=== PATIENT | female | born 1970 | race Caucasian/White ===

== ENCOUNTER 2017-12-29 10:45 | Inpatient (IN) | payer BC ==
--- NOTE | 2017-12-29 17:37 | ED ---
Abdominal Pain/Female - HPI Summary HPI Summary: This patient is a 47 year old F presenting to [facility] accompanied by her with a chief complaint of weight loss and ABD pain for the last few months. The patient rates the pain 5/10 in severity. Pt states she is dying to eat but gets full easily and therefore does not eat many calories daily. Patient denies n/v/d , dysuria, hematuria, melena, and polyuria. Hx Chronic fatigue and fibromyalgia. She has recently changed her diet which alleviated some ABD pain. - History of Current Complaint Chief Complaint: EDAbdPain Stated Complaint: ABD PAIN Time Seen by Provider: 12/29/17 17:12 Hx Obtained From: Patient Onset/Duration: Still Present Timing: Constant Severity Initially: Moderate Severity Currently: Moderate Pain Intensity: 5 Pain Scale Used: 0-10 Numeric Location: Diffuse Radiates: No Associated Signs and Symptoms: Positive: Negative - n/v/d, dysuria, hematuria, melena, and polyuria. Allergies/Adverse Reactions: Allergies Allergy/AdvReac Type Severity Reaction Status Date / Time Iodinated Contrast- Oral and Allergy Unknown Verified 12/29/17 17:19 IV Dye Reaction Details Home Medications: Home Medications Desloratadine/Pseudoephedrine [Clarinex-D 12 Hour Tablet] 1 tab PO DAILY PRN [History Confirmed 12/29/17] EPINEPHrine [Epipen Jr 2-Biju] 0.15 mg IM ONCE PRN 12/29/17 [History Confirmed ] Fluticasone NASAL SPRAY 50MCG* [Flonase NASAL SPRAY 50MCG*] 1 - 2 spray BOTH NARES DAILY 12/29/17 [History Confirmed 12/29/17] Multivitamin with Iron [Multivitamins with Iron] 1 tab PO DAILY 12/29/17 [ History Confirmed 12/29/17] Polyethylene Glycol 3350* [Miralax*] 17 gm PO BID PRN 12/29/17 [History Confirmed 12/29/17] PMH/Surg Hx/FS Hx/Imm Hx Endocrine/Hematology History: Reports: Other Endocrine/Hematological Disorders - CFS Denies: Hx Diabetes, Hx Thyroid Disease Cardiovascular History: Denies: Hx Hypertension Respiratory History: Denies: Hx Asthma, Hx Chronic Obstructive Pulmonary Disease (COPD) GI History: Denies: Hx Ulcer Musculoskeletal History: Reports: Hx Fibromyalgia Infectious Disease History: No Infectious Disease History: Denies: Hx Clostridium Difficile, Hx Hepatitis, Hx Human Immunodeficiency Virus (HIV), Hx of Known/Suspected MRSA, Hx Shingles, Hx Tuberculosis, Hx Known/ Suspected VRE, Hx Known/Suspected VRSA, History Other Infectious Disease, Traveled Outside the [place] in Last 30 Days - Family History Known Family History: Negative: Hypertension, Respiratory Disease, Seizure Disorder - Social History Alcohol Use: Rare Substance Use Type: Reports: None Smoking Status (MU): Never Smoked Tobacco Review of Systems Positive: Other - weight loss . Negative: Fever, Chills Negative: Erythema Negative: Sore Throat Negative: Chest Pain Negative: Shortness Of Breath, Cough Positive: Abdominal Pain. Negative: Vomiting, Diarrhea, Nausea Negative: dysuria, hematuria Negative: Myalgia, Edema Negative: Rash Neurological: Negative - dizziness All Other Systems Reviewed And Are Negative: Yes Physical Exam - Summary Physical Exam Summary: Constitutional: cachectic appearing, Alert. (-) Distressed Skin: Warm, Dry HENT: Normocephalic; Atraumatic Eyes: Conjunctiva normal Neck: Musculoskeletal ROM normal neck. (-) JVD, (-) Stridor, (-) Tracheal deviation Cardio: Rhythm regular, rate normal, Heart sounds normal; Intact distal pulses; The pedal pulses are 2+ and symmetric. Radial pulses are 2+ and symmetric. (-) Murmur Pulmonary/Chest wall: Effort normal. (-) Respiratory distress, (-) Wheezes, (-) Rales Abd: Soft, (-) epigastric tenderness, (-) Distension, (-) Guarding, (-) Rebound Musculoskeletal: (-) Edema Lymph: (-) Cervical adenopathy Neuro: Alert, Oriented x3 Psych: appears somewhat anxious Triage Information Reviewed: Yes Vital Signs On Initial Exam: Initial Vitals Temp Pulse Resp BP Pulse Ox 99.5 F 110 18 106/82 100 12/29/17 16:56 12/29/17 16:56 12/29/17 16:56 12/29/17 16:56 12/29/17 16:56 Vital Signs Reviewed: Yes Diagnostics - Vital Signs Vital Signs Temp Pulse Resp BP Pulse Ox 12/29/17 17:17 99 F 86 16 157/78 96 12/29/17 17:16 157/78 12/29/17 16:56 99.5 F 110 18 106/82 100 - Laboratory Result Diagrams: 12/29/17 17:38 12/29/17 17:38 Lab Statement: Any lab studies that have been ordered have been reviewed, and results considered in the medical decision making process. - CT CT ABD/Pelvis CT Interpretation Completed By: Radiologist - FIBROID UTERUS. 2. 3.2 CM INTERMEDIATE ATTENUATION ROUNDED LESION OF THE RIGHT OVARY, POSSIBLY A COMPLEX OVARIAN CYST, THOUGH SOLID LESIONS WITHIN THE DIFFERENTIAL. CONSIDER FURTHER EVALUATION WITH DEDICATED IMAGING OF THE PELVIS INCLUDING ULTRASOUND OF THE PELVIS. 3. OTHERWISE UNREMARKABLE NONCONTRAST CT OF THE ABDOMEN AND PELVIS.. ED physician has reviewed this radiology report. Abdominal Pain Fem Course/Dx - Course Course Of Treatment: This patient is a 47 year old F presenting to [facility] accompanied by her with a chief complaint of weight loss and ABD pain for the last few months. The patient rates the pain 5/10 in severity. Pt states she is dying to eat but gets full easily and therefore does not eat many calories daily. Patient denies n/v/d, dysuria, hematuria, melena, and polyuria. Hx Chronic fatigue and fibromyalgia. She has recently changed her diet which alleviated some ABD pain. CXR reveals, per radiologist, 1. FIBROID UTERUS. 2. 3.2 CM INTERMEDIATE ATTENUATION ROUNDED LESION OF THE RIGHT OVARY, POSSIBLY A COMPLEX. OVARIAN CYST, THOUGH SOLID LESIONS WITHIN THE DIFFERENTIAL. CONSIDER FURTHER EVALUATION. WITH DEDICATED IMAGING OF THE PELVIS INCLUDING ULTRASOUND OF THE PELVIS. 3. OTHERWISE UNREMARKABLE NONCONTRAST CT OF THE ABDOMEN AND PELVIS.. Did refuse oral contrast with the understanding that it could limit her examination. This patient will be signed out to Dr. Salas on shift change awaiting imaging and dispo - Diagnoses Provider Diagnoses: Severe protein-calorie malnutrition, Eating disorder, unspecified Discharge - Sign-Out/Discharge Documenting (check all that apply): Sign-Out Patient Signing out patient TO: Rafy Salas - Discharge Plan Condition: Good Disposition: ADMITTED TO [facility] - Billing Disposition and Condition Condition: GOOD Disposition: Admitted to [facility] - Attestation Statements Document Initiated by Scribe: Yes Documenting Scribe: Robbi Mayes Provider For Whom Scribe is Documenting (Include Credential): Nitin Cunningham MD Scribe Attestation: Robbi Ford , scribed for Nitin Cunningham MD on 01/05/18 at 1027. Scribe Documentation Reviewed: Yes Provider Attestation: The documentation as recorded by the scribe, Robbi Mayes accurately reflects the service I personally performed and the decisions made by me, Nitin Cunningham MD
[2017-12-29 17:48] LABS: ABS Basophils 0 10^3/ul (0-0.2); ABS Eosinophils 0 10^3/ul (0-0.6); ABS Lymphocytes 1.2 10^3/ul (1.0-4.8); ABS Monocytes 0.5 10^3/ul (0-0.8); ABS Neutrophils 4.6 10^3/ul (1.5-7.7); ABS Nucleated RBC 0 10^3/ul; Eosinophil % 0.7 % (0-6); Hematocrit 43 % (35-47); Hemoglobin 14.8 g/dl (12.0-16.0); Mean Corpuscular HGB Conc 35 g/dl (31-36); Mean Corpuscular Hemoglobin 31 pg (27-31); Mean Corpuscular Volume 91 fL (80-97); Mean Platelet Volume 8.4 um3 (7.4-10.4); Nucleated Red Blood Cells % 0.1; Platelet Count 295 10^3/ul (150-450); Red Blood Count 4.71 10^6/ul (4.00-5.40); Red Cell Distribution Width 12 % (10.5-15); White Blood Count 6.3 10^3/ul (3.5-10.8)
--- NOTE | 2017-12-29 18:09 | RAD ---
CLINICAL HISTORY: WEIGHT LOSS ABD PAIN COMPARISON: None TECHNIQUE: Multiple contiguous axial CT scans were obtained of the abdomen and pelvis, without intravenous contrast enhancement. Coronal and sagittal multiplanar reformations are submitted for review. Oral contrast was not administered. FINDINGS: Evaluation is limited due to the lack of intravenous contrast. This limits evaluation of the solid organs and vasculature. LUNG BASES: The lung bases are clear. LIVER: The liver is normal in shape, size, contour, and attenuation. BILE DUCTS: There is no intrahepatic or extrahepatic biliary dilatation. GALLBLADDER: The gallbladder is normal, without pericholecystic inflammatory change. PANCREAS: The pancreas is normal, without mass or ductal dilatation. SPLEEN: Normal in size and appearance. UPPER GI TRACT: Evaluation of the gastrointestinal tract is limited by incomplete gastric distention. There are degenerative tract is unremarkable. SMALL BOWEL AND MESENTERY: The small bowel is normal in contour, course, and caliber. There is no obstruction or dilatation. COLON: The colon is normal in contour, course, caliber. There is no pericolonic inflammatory change. ADRENALS: Normal bilaterally. KIDNEYS: The kidneys are normal in shape, size, contour, and axis. There is no hydronephrosis or nephrolithiasis. BLADDER: The bladder is smooth in contour. PELVIC ORGANS: The uterus is lobulated. There is a small amount of free fluid within the pelvis. There is an intermediate attenuation rounded lesion of the right ovary measuring 3.2 cm. AORTA: The aorta is normal. IVC: Unremarkable LYMPH NODES: There is no lymphadenopathy by size criteria. ABDOMINAL WALL: There is no evidence for abdominal wall hernia. BONES AND SOFT TISSUES: There are mild diffuse degenerative changes. OTHER: None IMPRESSION: 1. FIBROID UTERUS. 2. 3.2 CM INTERMEDIATE ATTENUATION ROUNDED LESION OF THE RIGHT OVARY, POSSIBLY A COMPLEX OVARIAN CYST, THOUGH SOLID LESIONS WITHIN THE DIFFERENTIAL. CONSIDER FURTHER EVALUATION WITH DEDICATED IMAGING OF THE PELVIS INCLUDING ULTRASOUND OF THE PELVIS. 3. OTHERWISE UNREMARKABLE NONCONTRAST CT OF THE ABDOMEN AND PELVIS..
[2017-12-29 18:24] LABS: EGFR Non-African American 109.3 (>60)
--- NOTE | 2017-12-29 19:10 | RAD ---
EXAM: US Abdomen Limited, Right Upper Quadrant CLINICAL HISTORY: 47 years old, female; Pain; Abdominal pain; Flank; Right upper quadrant (ruq); Additional info: Abd pain TECHNIQUE: Real-time ultrasound of the right upper quadrant with image documentation. COMPARISON: A/P WO CT ABD/PEL W/O 12/29/2017 5:54 PM FINDINGS: Liver: Unremarkable. No mass. No intrahepatic bile duct dilation. Gallbladder: The gallbladder is well filled without stones. Several polyps are seen, the largest measuring about 3 mm. Common bile duct: 4.7 mm in diameter. No stones. No dilation. Pancreas: Unremarkable as visualized. Right kidney: Unremarkable. No stones. No solid mass. No hydronephrosis. IMPRESSION: No no evidence of gallstones or other acute process.
--- NOTE | 2017-12-29 19:17 | ED ---
Progress - Progress Note Progress Note: This pt was signed out from Dr. Cunningham at shift change, pending disposition, awaiting US gallbladder. US Gallbladder, as read by radiologist IMPRESSION: No evidence of gallstones or other acute process. US Pelvis, as read by radiologist IMPRESSION: 1. Normal sized uterus with at least 3 measurable small fibroids none of which are submucosal. 2. There is a cyst in the right ovary measuring 3 cm probably a follicular cyst. Dr. Salas has reviewed these reports. Course/Dx - Provider Notifications Discussed Care Of Patient With: Alexandra Uriostegui - hospitalist Time Discussed With Above Provider: 19:15 Instructed by Provider To: Admit As Inpatient Discharge - Sign-Out/Discharge Documenting (check all that apply): Receiving Sign-Out Receiving patient FROM: Nitin Cunningham - Discharge Plan Referrals: Johnny King MD [Medical Doctor] - - Attestation Statements Document Initiated by Scribe: Yes Documenting Scribe: Tabatha Montiel Provider For Whom Scribe is Documenting (Include Credential): Rafy Salas MD Scribe Attestation: ITabatha, scribed for Rafy Salas MD on 12/29/17 at 2151.
--- NOTE | 2017-12-29 20:31 | RAD ---
EXAM: US Pelvis Complete, Transabdominal CLINICAL HISTORY: 47 years old, female; Abnormal findings; Abnormal imaging test; Additional info: Ovarian mass on CT, ? cystic vs neoplasm TECHNIQUE: Real-time transabdominal pelvic ultrasound (complete) with image documentation. COMPARISON: A/P WO CT ABD/PEL W/O 12/29/2017 5:54 PM FINDINGS: Uterus/cervix: The uterus measures 6.3 x 4.5 x 6.3 cm. Endometrial thickness is 4 mm. There are at least 3 small fibroids one, subserosal in the fundus measuring 3 x 2.8 x 2.2 cm. There is an intramural fibroid anteriorly measuring 2 x 2.3 cm and the smaller one posteriorly measuring 1 x 1.6 cm. None of them are submucosal. Right ovary: The right ovary measures 4.4 x 2.9 x 3.1 cm and contains a cyst measuring 2.8 x 3.1 cm. There is some debris within the cyst. Normal blood flow. Left ovary: The left ovary measures 2 x 1.4 x 1.9 cm. Normal blood flow. Free fluid: No free fluid. Bladder: Unremarkable as visualized. IMPRESSION: 1. Normal sized uterus with at least 3 measurable small fibroids none of which are submucosal. 2. There is a cyst in the right ovary measuring 3 cm probably a follicular cyst.
[2017-12-29] MEDS ORDERED: Ondansetron INJ* 2 MG/ML VIAL IV PRN (21:55)
[2017-12-29] MEDS ORDERED: Acetaminophen TAB* 325 MG PO PRN (22:02)
[2017-12-29 23:30] LABS: Urine Appearance Clear; Urine Blood Negative (Negative); Urine Color Straw; Urine Ketones Negative (Negative); Urine Protein Negative (Negative); Urine Red Blood Cell Trace(0-2/hpf) (Absent); Urine Specific Gravity 1.003 (1.010-1.030); Urine Urobilinogen Negative (Negative); Urine White Blood Cell Trace(0-5/hpf) (Absent)
[2017-12-30] MEDS: NS 0.9% 1000 ML* 1,000 ML IV SCH ×2 (00:16→12:51)
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
[2017-12-30] MEDS ORDERED: Midazolam* 1 MG/ML 10 ML VIAL (10 MG) ONE (14:45)
[2017-12-30] MEDS ORDERED: fentaNYL* 50 MCG/ML 2 ML VIAL (100 MCG VIAL) ONE (14:45)
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
--- NOTE | 2017-12-30 20:17 | PN ---
Subjective Date of Service: 12/30/17 Interval History: Interviewed and examined patient at bedside; Discussed case with Dr. Uriostegui; Reviewed previous notes and radiology results; patient with atpyical, intermittent abdominal distress associated with different foods. high likelihood of eating disorder; discussed with patient. plan for EGD today to exclude upper GI condition (i.e. ulcer disease, hernia, etc). patient agreeable. Family History: Unchanged from Admission Social History: Unchanged from Admission Past Medical History: Unchanged from Admission Objective Active Medications: . Acetaminophen (Tylenol Tab*) 325 mg PO Q6H PRN PRN Reason: PAIN OR TEMPERATURE Sodium Chloride (Ns 0.9% 1000 Ml*) 1,000 mls @ 75 mls/hr IV PER RATE IBETH Last Admin: 12/30/17 12:51 Dose: 75 mls/hr Ondansetron HCl (Zofran Inj*) 4 mg IV Q6H PRN PRN Reason: NAUSEA Polyethylene Glycol/Electrolytes (Miralax*) 17 gm PO BID PRN PRN Reason: CONSTIPATION Vital Signs - 8 hr 12/30/17 12/30/17 18:01 18:49 Temperature 98.1 F 97.8 F Pulse Rate 75 84 Respiratory 18 16 Rate Blood Pressure 123/66 104/63 (mmHg) O2 Sat by Pulse 100 100 Oximetry Oxygen Devices in Use Now: None Appearance: NAD; very malnourished and cachectic. Eyes: No Scleral Icterus Ears/Nose/Mouth/Throat: Clear Oropharnyx Neck: Trachea Midline Respiratory: Symmetrical Chest Expansion and Respiratory Effort Cardiovascular: NL Sounds; No Murmurs; No JVD Abdominal: NL Sounds; No Tenderness; No Distention, - - scaphoid Lymphatic: No Cervical Adenopathy Extremities: No Edema, - - extremely thin and poor muscle bulk Skin: No Rash or Ulcers Neurological: Alert and Oriented x 3 Lines/Tubes/Other Access: Clean, Dry and Intact Peripheral IV Nutrition: Taking PO's - Nutrition: Malnutrition Diagnosis/Plan Malnutrition Assessment by Registered Dietitian: Malnutrition Assessment Clinical Characteristics Chronic,Severe Malnutrition Assessment: <or=50% of EEE x >or= 5 days Criteria severe wt loss: 12% x 4 mos (> 7.5% x 3 mos) Malnutrition Assessment: TBA based on results of GI consult and diet Interventions advancement see Nutrition Assessment under Patient Care tab for details Malnutrition Assessment: Goals 1. Pt will tolerate PO without GI distress/pain 2. Food options will be d/w pt to optimize intake 3. Intake will be adequate in protein and kcal to support wt gain and replenishing of protein stores 2/2 severe wt loss Result Diagrams: 12/29/17 17:38 12/29/17 17:38 Assess/Plan/Problems-Billing . Assessment: 47 yo female with severe protein calorie malnutrition and likely eating disorder characterized by somatiform discomfort intermittently that has caused a hesitation to eat all but a few foods. s/p EGD without explanatory findings. Restarting diet with bland contents but need to add protein calories. May need enteral nutrition via alternative delivery system in short run given extreme weakness. Admit to inpatient status 12/30/17. . - Patient Problems (1) Severe protein-calorie malnutrition Current Visit: Yes Status: Acute Priority: High Code(s): E43 - UNSPECIFIED SEVERE PROTEIN-CALORIE MALNUTRITION Comment: Clinical Characteristics Chronic,Severe Malnutrition Assessment: patient has taken in less than 50% of EEE for more than 5 days Criteria severe wt loss: 12% x 4 mos (> 7.5% x 3 mos) Malnutrition Assessment: TBA based on results of GI consult and diet (2) Abdominal distress Current Visit: Yes Status: Acute Priority: High Code(s): R10.9 - UNSPECIFIED ABDOMINAL PAIN Comment: - no pain now - fearful to eat - s/p EGD with bx --> no explanatory abnormalities seen. (3) Eating disorder, unspecified Current Visit: Yes Status: Acute Priority: High Code(s): F50.9 - EATING DISORDER, UNSPECIFIED Comment: - consider psych consult - attempt refeeding; can use TEN if needed; patient is agreeable to TEN via NGT if needed.
[2017-12-31] MEDS: NS 0.9% 1000 ML* 1,000 ML IV SCH (06:28)
--- NOTE | 2017-12-31 10:22 | PRO ---
PROCEDURE NOTE: DATE OF PROCEDURE: 12/30/17 PROCEDURE PERFORMED: EGD with biopsy. INDICATION: Weight loss of 15 pounds, early satiety, abdominal discomfort and bloating. MEDICATIONS GIVEN: 1. Versed 9 mg IV. 2. Fentanyl 75 mcg IV. DESCRIPTION OF PROCEDURE: Full disclosure of risks were reviewed with the patient as detailed on the consent form. The patient was placed in the left lateral decubitus position and monitored with continuous pulse oximetry, interval blood pressure monitoring, and direct observation. A bite-block was placed between the teeth. An Olympus gastroscope was then inserted into the patient's mouth, advanced down the esophagus, into the stomach, and into the distal duodenum. Esophagus was notable for circumferential erythema of the distal 5 cm without overt inflammation or ulceration.Bopsies were obtained from this area. The Z-line was regular.and GE junction was noted at 37 cm. A 3 to 4 cm hiatal hernia was appreciated. Next, the gastric mucosa was examined closely in forward and retroflexed views. There was relatively pale featureless mucosa particularly in the antrum. No erythema, erosions, ulcerations or masses noted. Biopsies were obtained from the gastric antrum and the gastric body. The scope was then advanced into the duodenum. The duodenum had mild scattered linear erythema, which was biopsied. No erosions or ulcers. The scope was then slowly withdrawn from the patient. She tolerated the procedure well and was returned to the recovery room in stable condition. IMPRESSION: 1. Distal esophageal erythema. Not classic for esophagitis. Biopsies taken. 2. Hiatal hernia. 3. Relatively pale featureless mucosa in antrum. May be within normal limits. Biopsies taken. 3. Scattered linear erythema in duodenum. Biopsies obtained. RECOMMENDATIONS: 1. Await pathology. 2. Consider gastric emptying study. Thank you, Dr. Morrison, for this consult. [id number]/[facility] #: [id number] [facility] HOSPITALJonathan
--- NOTE | 2017-12-31 17:27 | PN ---
Subjective Date of Service: 12/31/17 Interval History: Patient reports that "stomach" is not tolerating food. She has been able to tolerate bananas, rice cakes, applesauce today w/o vomiting or pain. She reports intolerance of gluten, processed sugar, soy, and most foods. She saw Dr. Linda yesterday from GI, had EGD. Apparenty IBS, Xifaxan discussed. Patient asking more about this. Family History: Unchanged from Admission Social History: Unchanged from Admission Past Medical History: Unchanged from Admission Objective Active Medications: Acetaminophen (Tylenol Tab*) 325 mg PO Q6H PRN PRN Reason: PAIN OR TEMPERATURE Sodium Chloride (Ns 0.9% 1000 Ml*) 1,000 mls @ 75 mls/hr IV PER RATE IBETH Last Admin: 12/31/17 06:28 Dose: 75 mls/hr Ondansetron HCl (Zofran Inj*) 4 mg IV Q6H PRN PRN Reason: NAUSEA Polyethylene Glycol/Electrolytes (Miralax*) 17 gm PO BID PRN PRN Reason: CONSTIPATION Vital Signs - 8 hr 12/31/17 12/31/17 12/31/17 09:43 11:26 15:47 Temperature 36.7 C 37.1 C Pulse Rate 71 77 Respiratory 14 16 18 Rate Blood Pressure 112/70 115/75 (mmHg) O2 Sat by Pulse 100 99 Oximetry Oxygen Devices in Use Now: None Appearance: appears cachectic Eyes: No Scleral Icterus Ears/Nose/Mouth/Throat: Clear Oropharnyx Neck: No Thyroid Enlargement, Masses Respiratory: Clear to Auscultation, Clear to Percussion Cardiovascular: NL Sounds; No Murmurs; No JVD Abdominal: NL Sounds; No Tenderness; No Distention, No Hepatosplenomegaly Skin: No Rash or Ulcers Neurological: Alert and Oriented x 3 Lines/Tubes/Other Access: Clean, Dry and Intact Peripheral IV Nutrition: Taking PO's - Nutrition: Malnutrition Diagnosis/Plan Malnutrition Assessment by Registered Dietitian: Malnutrition Assessment Clinical Characteristics Chronic,Severe Malnutrition Assessment: <or=50% of EEE x >or= 5 days Criteria severe wt loss: 12% x 4 mos (> 7.5% x 3 mos) Malnutrition Assessment: TBA based on results of GI consult and diet Interventions advancement see Nutrition Assessment under Patient Care tab for details Malnutrition Assessment: Goals 1. Pt will tolerate PO without GI distress/pain 2. Food options will be d/w pt to optimize intake 3. Intake will be adequate in protein and kcal to support wt gain and replenishing of protein stores 2/2 severe wt loss Result Diagrams: 12/29/17 17:38 12/29/17 17:38 Microbiology and Other Data: Microbiology 12/29/17 23:14 Urine Culture - Final Urine No Growth (<1,000 CFU/mL) Assess/Plan/Problems-Billing Assessment: 47 yo female with severe protein calorie malnutrition and likely eating disorder characterized by somatiform discomfort intermittently that has caused a hesitation to eat all but a few foods. - Patient Problems (1) Severe protein-calorie malnutrition Current Visit: Yes Status: Acute Priority: High Code(s): E43 - UNSPECIFIED SEVERE PROTEIN-CALORIE MALNUTRITION SNOMED Code(s): 790107175 Comment: -Discussed w/ range master, will start calorie counts -Discussed option of NT tube, enteral feedings. Patient feels that protein shake was the cause of gastritis recently (2) Eating disorder, unspecified Current Visit: Yes Status: Acute Priority: High Code(s): F50.9 - EATING DISORDER, UNSPECIFIED SNOMED Code(s): 97184875 Comment: - arranging psych consult - attempt refeeding; patient is not agreeable to TEN via NGT if needed. (3) Abdominal distress Current Visit: Yes Status: Acute Priority: High Code(s): R10.9 - UNSPECIFIED ABDOMINAL PAIN SNOMED Code(s): 139062454 Comment: - s/p EGD with bx --> no explanatory abnormalities seen. - pathology pending - discussed w/ Dr. Gage, he will see patient Tuesday - Discussed Xifaxan for IBS or bacterial overgrowth Status and Disposition: requires continue inpatient stay due to severe malnutrition, BMI 14.6
[2018-01-01] MEDS: Polyethylene Glycol 3350* 17 GM PACKET PO PRN (04:41)
--- NOTE | 2018-01-01 11:09 | PN ---
Subjective Date of Service: 01/01/18 Interval History: Ms. Mix reports the continued sensation of early satiety but feels that she has been able to eat a bit more since admission. She denies any new complaint. She is upset at the suggestion that she may have an eating disorder. Family History: Unchanged from Admission Social History: Unchanged from Admission Past Medical History: Unchanged from Admission Objective Active Medications: Acetaminophen (Tylenol Tab*) 325 mg PO Q6H PRN Ondansetron HCl (Zofran Inj*) 4 mg IV Q6H PRN Polyethylene Glycol/Electrolytes (Miralax*) 17 gm PO BID PRN Vital Signs: Temp Pulse Resp BP Pulse Ox 97.9 F 88 16 108/80 100 01/01/18 07:23 01/01/18 07:23 01/01/18 07:33 01/01/18 07:23 01/01/18 07:23 Oxygen Devices in Use Now: None - Nutrition: Malnutrition Diagnosis/Plan Malnutrition Assessment by Registered Dietitian: Malnutrition Assessment Clinical Characteristics Chronic,Severe Malnutrition Assessment: <or=50% of EEE x >or= 5 days Criteria severe wt loss: 12% x 4 mos (> 7.5% x 3 mos) Malnutrition Assessment: TBA based on results of GI consult and diet Interventions advancement see Nutrition Assessment under Patient Care tab for details Malnutrition Assessment: Goals 1. Pt will tolerate PO without GI distress/pain 2. Food options will be d/w pt to optimize intake 3. Intake will be adequate in protein and kcal to support wt gain and replenishing of protein stores 2/2 severe wt loss Result Diagrams: 12/29/17 17:38 12/29/17 17:38 Microbiology and Other Data: Microbiology 12/29/17 23:14 Urine Culture - Final Urine No Growth (<1,000 CFU/mL) Assess/Plan/Problems-Billing Assessment: Ms. Mix is a 47 yo female with severe protein calorie malnutrition and likely eating disorder characterized by somatiform discomfort intermittently that has caused a hesitation to eat all but a few foods. - Patient Problems (1) Abdominal distress Comment: - s/p EGD with bx --> no explanatory abnormalities seen. - pathology pending - discussed w/ Dr. Gage, he will see patient Tuesday - ? of gut dysbiosis or post-infectious irritable bowel syndrome. - Gastric empyting study ordered (2) Eating disorder, unspecified Comment: - Psych consult pending. - Continue to offer foods; patient is not agreeable to TEN via NGT if needed. (3) Severe protein-calorie malnutrition Comment: -Discussed w/ head field hockey coach, will start calorie counts (4) DVT prophylaxis Comment: - Early mobility (5) Full code status Comment: Status and Disposition: Requires continue inpatient stay due to severe malnutrition, BMI 14.6
[2018-01-01] MEDS: Lactobacillus Acidophilus* 1 TAB PO SCH (12:41)
[2018-01-02] MEDS: Lactobacillus Acidophilus* 1 TAB PO SCH ×2 (07:47→17:11)
--- NOTE | 2018-01-02 08:16 | PN ---
Subjective Date of Service: 01/02/18 Interval History: Ms. Mix continues to report the same symptoms of early satiety. She denies other complaint today. Family History: Unchanged from Admission Social History: Unchanged from Admission Past Medical History: Unchanged from Admission Objective Active Medications: Acetaminophen (Tylenol Tab*) 325 mg PO Q6H PRN Lactobacillus Rhamnosus (Lactobacillus Acidophilus*) 1 tab PO DAILY IBETH Ondansetron HCl (Zofran Inj*) 4 mg IV Q6H PRN Polyethylene Glycol/Electrolytes (Miralax*) 17 gm PO BID PRN Vital Signs: Temp Pulse Resp BP Pulse Ox 97.9 F 104 18 110/72 98 01/02/18 06:49 01/02/18 06:49 01/02/18 06:49 01/02/18 06:49 01/02/18 06:49 Oxygen Devices in Use Now: None Appearance: Female lying in bed in NAD Eyes: No Scleral Icterus Ears/Nose/Mouth/Throat: NL Teeth, Lips, Gums Neck: NL Appearance and Movements; NL JVP Respiratory: Symmetrical Chest Expansion and Respiratory Effort, Clear to Auscultation Cardiovascular: NL Sounds; No Murmurs; No JVD, No Edema Abdominal: NL Sounds; No Tenderness; No Distention Extremities: No Edema Skin: No Rash or Ulcers Neurological: Alert and Oriented x 3, NL Muscle Strength and Tone Nutrition: Taking PO's - Nutrition: Malnutrition Diagnosis/Plan Malnutrition Assessment by Registered Dietitian: Malnutrition Assessment Clinical Characteristics Chronic,Severe Malnutrition Assessment: <or=50% of EEE x >or= 5 days Criteria severe wt loss: 12% x 4 mos (> 7.5% x 3 mos) Malnutrition Assessment: TBA based on results of GI consult and diet Interventions advancement see Nutrition Assessment under Patient Care tab for details Malnutrition Assessment: Goals 1. Pt will tolerate PO without GI distress/pain 2. Food options will be d/w pt to optimize intake 3. Intake will be adequate in protein and kcal to support wt gain and replenishing of protein stores 2/2 severe wt loss Result Diagrams: 12/29/17 17:38 12/29/17 17:38 Microbiology and Other Data: . Assess/Plan/Problems-Billing Assessment: Ms. Mix is a 47 yo female with severe protein calorie malnutrition and likely eating disorder characterized by somatiform discomfort intermittently that has caused a hesitation to eat all but a few foods. - Patient Problems (1) Abdominal distress Comment: - s/p EGD with bx --> no explanatory abnormalities seen, pathology pending - Gastric emptying study shows gastroparesis but Dr. Gage states that it is mild and that the degree of slowing does not correlated with her symptoms and degree of food aversion. - ? of gut dysbiosis, recommend SIBO testing outpatient (2) Eating disorder, unspecified Comment: - Psych consult pending. - Suspect patient's malnutrition is multifactorial and that she has a component of an eating disorder. (3) Severe protein-calorie malnutrition Comment: -Discussed w/ lining machine operator, will start calorie counts (4) DVT prophylaxis Comment: - Early mobility (5) Full code status Comment: Status and Disposition: Requires continue inpatient stay due to severe malnutrition, BMI 14.6
--- NOTE | 2018-01-02 14:30 | RAD ---
Indication: Abdominal pain, nausea, early satiety several months duration. Weight loss. Comparison: December 29, [address] Technique: The patient was administered a solid meal of oatmeal admixed with 0.950 mCi of Tc-99m sulfur colloid. Images of the upper abdomen were obtained and percent of contents emptied from the stomach calculated. Report: Gastric emptying half time is equal to 186 minutes. Normal GE T-1/2 is less than 90 minutes. IMPRESSION: Gastroparesis.
[2018-01-02] MEDS ORDERED: Metoclopramide TAB* 10 MG PO PRN (14:59)
[2018-01-02] MEDS: Polyethylene Glycol 3350* 17 GM PACKET PO PRN (22:59)
[2018-01-03] MEDS: Lactobacillus Acidophilus* 1 TAB PO SCH (08:46)
[2018-01-03] MEDS: Polyethylene Glycol 3350* 17 GM PACKET PO PRN (16:59)
--- NOTE | 2018-01-03 17:19 | PN ---
Subjective Date of Service: 01/03/18 Interval History: C/o right lower abd pain after eating eggs, denies chest pain or shortness of breath. Denies vomiting or diarrhea Family History: Unchanged from Admission Social History: Unchanged from Admission Past Medical History: Unchanged from Admission Objective Active Medications: Acetaminophen (Tylenol Tab*) 325 mg PO Q6H PRN PRN Reason: PAIN OR TEMPERATURE Lactobacillus Rhamnosus (Lactobacillus Acidophilus*) 1 tab PO DAILY IBETH Last Admin: 01/03/18 08:46 Dose: 1 tab Metoclopramide HCl (Reglan Tab*) 5 mg PO Q6H PRN PRN Reason: nausea, abdominal pain Ondansetron HCl (Zofran Inj*) 4 mg IV Q6H PRN PRN Reason: NAUSEA Polyethylene Glycol/Electrolytes (Miralax*) 17 gm PO BID PRN PRN Reason: CONSTIPATION Last Admin: 01/03/18 16:59 Dose: 17 gm Vital Signs - 8 hr 01/03/18 01/03/18 11:27 15:43 Temperature 98.3 F 98.2 F Pulse Rate 90 91 Respiratory 16 17 Rate Blood Pressure 105/75 102/70 (mmHg) O2 Sat by Pulse 100 100 Oximetry Oxygen Devices in Use Now: None Appearance: alert, appears comfortable resting in bed, no acute distress Eyes: No Scleral Icterus Ears/Nose/Mouth/Throat: Clear Oropharnyx, Mucous Membranes Moist Neck: NL Appearance and Movements; NL JVP, Trachea Midline Respiratory: Symmetrical Chest Expansion and Respiratory Effort, Clear to Auscultation Cardiovascular: NL Sounds; No Murmurs; No JVD, No Edema Abdominal: NL Sounds; No Tenderness; No Distention Extremities: No Edema, No Clubbing, Cyanosis Skin: No Rash or Ulcers Neurological: Alert and Oriented x 3 Nutrition: Taking PO's - Nutrition: Malnutrition Diagnosis/Plan Malnutrition Assessment by Registered Dietitian: Malnutrition Assessment Clinical Characteristics Chronic,Severe Malnutrition Assessment: <or=50% of EEE x >or= 5 days Criteria severe wt loss: 12% x 4 mos (> 7.5% x 3 mos) Malnutrition Assessment: TBA based on results of GI consult and diet Interventions advancement see Nutrition Assessment under Patient Care tab for details Malnutrition Assessment: Goals 1. Pt will tolerate PO without GI distress/pain 2. Food options will be d/w pt to optimize intake 3. Intake will be adequate in protein and kcal to support wt gain and replenishing of protein stores 2/2 severe wt loss Result Diagrams: 12/29/17 17:38 12/29/17 17:38 Microbiology and Other Data: . Assess/Plan/Problems-Billing Assessment: Ms. Mix is a 47 yo female with severe protein calorie malnutrition and likely eating disorder characterized by somatiform discomfort intermittently that has caused a hesitation to eat all but a few foods. - Patient Problems (1) Gastroparesis Current Visit: Yes Status: Acute Code(s): K31.84 - GASTROPARESIS SNOMED Code(s): 351727676 Comment: s/p EGD with bx- no explanatory abnormalities seen, pathology - negative - Gastric emptying study shows gastroparesis - GI does not feel this is mild and not the only contributing factor to her symptoms and severity of poor nutritional intake (2) Eating disorder, unspecified Current Visit: Yes Status: Acute Priority: High Code(s): F50.9 - EATING DISORDER, UNSPECIFIED SNOMED Code(s): 47217380 Comment: - Psych consult - seen today - Suspect patient's malnutrition is multifactorial and that she has a component of an eating disorder. (3) Severe protein-calorie malnutrition Current Visit: Yes Status: Acute Priority: High Code(s): E43 - UNSPECIFIED SEVERE PROTEIN-CALORIE MALNUTRITION SNOMED Code(s): 581510059 Comment: -Discussed w/ collection development librarian, will start calorie counts (4) DVT prophylaxis Current Visit: Yes Status: Acute Code(s): WAU2162 - SNOMED Code(s): 609409028 Comment: - Early mobility (5) Full code status Current Visit: Yes Status: Acute Code(s): Z78.9 - OTHER SPECIFIED HEALTH STATUS SNOMED Code(s): 645888346 Comment: Status and Disposition: inpatient - possible discharge in the AM
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
[2018-01-04] MEDS: Lactobacillus Acidophilus* 1 TAB PO SCH (09:26)
[2018-01-04 14:45] VITALS: BP 103/65
--- NOTE | 2018-01-04 20:53 | PN ---
Subjective Date of Service: 01/04/18 Interval History: Patient seen and examined at the bedside. Patient reports that she is tolerating foods po fluids without difficulty. reports that she is feeling better today. Seen and evaluated by psych yesterday. Denies chest pain or shortness of breath. denies abd pain n/v/d. Family History: Unchanged from Admission Social History: Unchanged from Admission Past Medical History: Unchanged from Admission Objective Vital Signs - 8 hr 01/04/18 14:43 Temperature 98.3 F Pulse Rate 80 Blood Pressure 103/65 (mmHg) O2 Sat by Pulse 98 Oximetry Oxygen Devices in Use Now: None Appearance: appears thin, no acute distress Eyes: No Scleral Icterus Ears/Nose/Mouth/Throat: Clear Oropharnyx, Mucous Membranes Moist Neck: NL Appearance and Movements; NL JVP, Trachea Midline Respiratory: Symmetrical Chest Expansion and Respiratory Effort, Clear to Auscultation Cardiovascular: NL Sounds; No Murmurs; No JVD, No Edema Abdominal: NL Sounds; No Tenderness; No Distention Extremities: No Edema, No Clubbing, Cyanosis Skin: No Rash or Ulcers Neurological: Alert and Oriented x 3 Nutrition: Taking PO's - Nutrition: Malnutrition Diagnosis/Plan Malnutrition Assessment by Registered Dietitian: Malnutrition Assessment Clinical Characteristics Chronic,Severe Malnutrition Assessment: <or=50% of EEE x >or= 5 days Criteria severe wt loss: 12% x 4 mos (> 7.5% x 3 mos) Malnutrition Assessment: TBA based on results of GI consult and diet Interventions advancement see Nutrition Assessment under Patient Care tab for details Malnutrition Assessment: Goals 1. Pt will tolerate PO without GI distress/pain 2. Food options will be d/w pt to optimize intake 3. Intake will be adequate in protein and kcal to support wt gain and replenishing of protein stores 2/2 severe wt loss Result Diagrams: 12/29/17 17:38 12/29/17 17:38 Microbiology and Other Data: . Assess/Plan/Problems-Billing Assessment: Ms. Mix is a 47 yo female with severe protein calorie malnutrition and likely eating disorder characterized by somatiform discomfort intermittently that has caused a hesitation to eat all but a few foods. - Patient Problems (1) Gastroparesis Status: Acute Code(s): K31.84 - GASTROPARESIS SNOMED Code(s): 918092668 Comment: s/p EGD with bx- no explanatory abnormalities seen, pathology - negative - Gastric emptying study shows gastroparesis - not willing to take medications - GI does not feel this is mild and not the only contributing factor to her symptoms and severity of poor nutritional intake - tolerating PO intake of fluid and food, no nausea or abd pain. (2) Eating disorder, unspecified Status: Acute Priority: High Code(s): F50.9 - EATING DISORDER, UNSPECIFIED SNOMED Code(s): 29465629 Comment: - Psych consult - seen today recommended cymbalta - patient declined medications - would like to discuss with her primary care doctor. - Suspect patient's malnutrition is multifactorial and that she has a component of depression and eating disorder (3) Severe protein-calorie malnutrition Status: Acute Priority: High Code(s): E43 - UNSPECIFIED SEVERE PROTEIN- CALORIE MALNUTRITION SNOMED Code(s): 824650023 Comment: -Discussed w/ windows server support technician, will start calorie counts (4) DVT prophylaxis Status: Acute Code(s): RBR9092 - SNOMED Code(s): 706243655 Comment: - Early mobility (5) Full code status Status: Acute Code(s): Z78.9 - OTHER SPECIFIED HEALTH STATUS SNOMED Code(s) : 477248984 Comment: Status and Disposition: discharge today - patient instructed to follow up with PMD in 4 to 7 days for close management of her malnutrition.
== END 2018-01-04 15:45 | disposition home or self-care (01) | DRG 421 ==
LOC: ED 10:45 → MED 21:55 → OBSVTOIN 12-30 20:17 → MED 01-04 05:02
PROVIDERS: ADMIT Hospitalist; ATTEND Internal Medicine
PROC: 0DD58ZX Extraction of Esophagus, Via Natural or Artificial Opening Endoscopic, Diagnostic (ICD-10-PCS; principal; 2017-12-30)
PROC: 0DD68ZX Extraction of Stomach, Via Natural or Artificial Opening Endoscopic, Diagnostic (ICD-10-PCS; 2017-12-30)
DX: E43 Unspecified severe protein-calorie malnutrition (principal); Z68.1 Body mass index [BMI] 19.9 or less, adult; K31.84 Gastroparesis; F50.9 Eating disorder, unspecified; M79.7 Fibromyalgia; R53.82 Chronic fatigue, unspecified; F32.9 Major depressive disorder, single episode, unspecified; K44.9 Diaphragmatic hernia without obstruction or gangrene; Z79.899 Other long term (current) drug therapy
CPT/HCPCS: 36415; 74176; 76705; 76856; 78264; 80053; 80307; 81003; 81015; 82525; 82607; 83605; 83690; 84425; 85025; 86140; 87086; 88305; 88342; 99156; 99157; 99284; A9270-GY; A9541; J2250; J3010

== ENCOUNTER 2018-02-04 17:15 | Inpatient (IN) | payer BC ==
--- NOTE | 2018-02-04 18:50 | ED ---
Complex/Multi-Sys Presentation - HPI Summary HPI Summary: The pt is a 48 y/o female with a Mhx of gastroparesis [facility] c/o of weakness since 8 weeks ago due to chronic decreased food intake. She was referred for feeding tube placement by Dr. Charito Cortés MD. She notes loss of appetite, weight loss, a feeling of abd fullness, abd pain, flatulence secondary to eating, decreased bowel movements, diarrhea, and palpitations but denies abd pain, fever, nausea and vomiting. The pt has tried to eat different foods but nothing helped. She has seen a footwear sales associate to no relief. - History Of Current Complaint Chief Complaint: EDWeakness Time Seen by Provider: 02/04/18 18:39 Hx Obtained From: Patient, Family/Wound Care Physician Onset/Duration: Still Present, Other - Acute on chronic Timing: Constant Associated Signs And Symptoms: Positive: Weakness, Palpitations, Diarrhea, Other - Flatulance, decreased bowel movements, loss of appetite. Negative: Nausea, Vomiting - Allergies/Home Medications Allergies/Adverse Reactions: Allergies Allergy/AdvReac Type Severity Reaction Status Date / Time Iodinated Contrast- Oral and Allergy Unknown Verified 12/29/17 17:19 IV Dye Reaction Details PMH/Surg Hx/FS Hx/Imm Hx Previously Healthy: No Endocrine/Hematology History: Reports: Other Endocrine/Hematological Disorders - CFS Denies: Hx Diabetes, Hx Thyroid Disease Cardiovascular History: Denies: Hx Hypertension Respiratory History: Denies: Hx Asthma, Hx Chronic Obstructive Pulmonary Disease (COPD) GI History: Reports: Other GI Disorders - Gastroparesis Denies: Hx Ulcer Musculoskeletal History: Reports: Hx Fibromyalgia Sensory History: Reports: Hx Contacts or Glasses Denies: Hx Hearing Aid Opthamlomology History: Reports: Hx Contacts or Glasses - Cancer History Cancer Type, Location and Year: None reported - Surgical History Surgery Procedure, Year, and Place: None reported Infectious Disease History: No Infectious Disease History: Denies: Hx Clostridium Difficile, Hx Hepatitis, Hx Human Immunodeficiency Virus (HIV), Hx of Known/Suspected MRSA, Hx Shingles, Hx Tuberculosis, Hx Known/ Suspected VRE, Hx Known/Suspected VRSA, History Other Infectious Disease, Traveled Outside the [place] in Last 30 Days - Family History Known Family History: Negative: Hypertension, Respiratory Disease, Seizure Disorder - Social History Occupation: Unemployed Lives: With Family Alcohol Use: Rare Substance Use Type: Reports: None Smoking Status (MU): Never Smoked Tobacco Review of Systems Constitutional: Other - Positive:Loss of appetite , weight loss Negative: Fever Positive: Palpitations Gastrointestinal: Other - Positive: Decreased bowel movement, flatulence Positive: Diarrhea. Negative: Abdominal Pain, Vomiting, Nausea Positive: Weakness All Other Systems Reviewed And Are Negative: Yes Physical Exam - Summary Physical Exam Summary: General: The pt is lean and underweight. She is in no pain distress Skin: warm, color reflects adequate perfusion, dry Head: normal Eyes: EOMI, PAYTON ENT: normal Neck: supple, nontender Respiratory: CTA, breath sounds present Cardiovascular: RRR Abdomen: soft, nontender Bowel: present Musculoskeletal: normal, strength/ROM intact Neurological: sensory/motor intact, A&O x3 Psychological: affect/mood appropriate Triage Information Reviewed: Yes Vital Signs On Initial Exam: Initial Vitals Temp Pulse Resp BP Pulse Ox 98.0 F 98 14 119/77 100 02/04/18 17:40 02/04/18 17:40 02/04/18 17:40 02/04/18 17:40 02/04/18 17:40 Vital Signs Reviewed: Yes Diagnostics - Vital Signs Vital Signs Temp Pulse Resp BP Pulse Ox 02/04/18 17:40 98.0 F 98 14 119/77 100 - Laboratory Result Diagrams: 02/04/18 19:00 02/04/18 19:00 Lab Statement: Any lab studies that have been ordered have been reviewed, and results considered in the medical decision making process. - EKG 19:02 Cardiac Rate: NL - 70 bpm EKG Rhythm: Sinus Rhythm ST Segment: Normal Ectopy: None Complex Multi-Symp Course/Dx Course Of Treatment: Medications reviewed. Allergies noted. ADMIT HOSPITALIST - Diagnoses Provider Diagnoses: Weakness Discharge - Sign-Out/Discharge Documenting (check all that apply): Patient Departure - Admit All imaging exams completed and their final reports reviewed: No Studies - Discharge Plan Condition: Stable Disposition: ADMITTED TO [facility] - Billing Disposition and Condition Condition: STABLE Disposition: Admitted to [facility] - Attestation Statements Document Initiated by Scribe: Yes Documenting Scribe: Yael Chakraborty Provider For Whom Scribe is Documenting (Include Credential): Dr. Elvin Kang MD Scribe Attestation: I, Yael Chakraborty, scribed for Dr. Elvin Kang MD on 02/04/18 at 2002. Scribe Documentation Reviewed: Yes Provider Attestation: The documentation as recorded by the scribe, Yael Chakraborty accurately reflects the service I personally performed and the decisions made by me, Dr. Elvin Kang MD
[2018-02-04 19:09] LABS: ABS Basophils 0 10^3/ul (0-0.2); ABS Eosinophils 0 10^3/ul (0-0.6); ABS Lymphocytes 1.1 10^3/ul (1.0-4.8); ABS Monocytes 0.4 10^3/ul (0-0.8); ABS Neutrophils 3.1 10^3/ul (1.5-7.7); ABS Nucleated RBC 0 10^3/ul; Eosinophil % 0.5 % (0-6); Hematocrit 44 % (35-47); Hemoglobin 15.2 g/dl (12.0-16.0); Mean Corpuscular HGB Conc 35 g/dl (31-36); Mean Corpuscular Hemoglobin 31 pg (27-31); Mean Corpuscular Volume 89 fL (80-97); Mean Platelet Volume 8.9 um3 (7.4-10.4); Nucleated Red Blood Cells % 0.1; Platelet Count 260 10^3/ul (150-450); Red Blood Count 4.93 10^6/ul (4.00-5.40); Red Cell Distribution Width 13 % (10.5-15); White Blood Count 4.7 10^3/ul (3.5-10.8)
[2018-02-04 19:24] LABS: EGFR Non-African American 97.3 (>60)
--- NOTE | 2018-02-04 21:48 | HP ---
AMENDED REPORT NOW INCLUDES DESIGNATED COSIGNER CC: Dr. Niharika Cortés * [facility] MEDICINE HISTORY AND PHYSICAL: DATE OF ADMISSION: 02/04/18 PRIMARY CARE PHYSICIAN: Dr. Niharika Cortés. ATTENDING PHYSICIAN: Dr. Khalida Christensen * (dictation provided by Lili Salazar NP ). CHIEF COMPLAINT: Abdominal pain and weight loss. HISTORY OF PRESENT ILLNESS: Ms. Mix is a 48-year-old female, who was just admitted to our hospital on 12/29/17 for similar issues. The patient states that she has a history of chronic fatigue syndrome and fibromyalgia. She has had ongoing issues with weight loss and difficulty eating. She reports that her symptoms began in July of this past year after she took antibiotics. She states that she had a violent reaction to these antibiotics and since then she has essentially stopped eating. She reports bloating and discomfort in her abdomen with even 1 bite of food. She feels that her food is processed through her abdomen very slowly and that she can feel the transit very acutely. She also reports significant gurgling in her abdomen that causes her great concern. She feels early satiety. She has been losing weight consistently even since her discharge from our hospital and her current BMI is 13. She denies any other change to the symptoms. She has been following up with her primary care physician, Dr. Niharika Cortés, and also with Dr. Linda from Gastroenterology, but feels that she is not getting as much help as she would like. She is amenable and interested in the possible placement of a nasogastric tube for feedings, possibly post-pyloric, to avoid what has been termed a mild gastroparesis discovered on gastric emptying study during the last hospitalization. Her other workup has included an unremarkable upper endoscopy and an unremarkable CT abd/pelvis (without IV or oral contrast due to allergy). In the emergency room, Ms. Mix has had labs. Her electrolytes are essentially normal except for very mild hypokalemia with potassium 3.4. Her CBC is normal. Vital signs are normal. PAST MEDICAL HISTORY: 1. Protein-calorie malnutrition secondary to abdominal bloating, no clear etiology other than mild gastroparesis. 2. Depression. 3. Fibromyalgia. 4. Chronic fatigue. MEDICATIONS: 1. Lactobacillus daily. 2. MiraLax daily. 3. Multivitamin daily. ALLERGIES: IODINATED CONTRAST, ORAL and IV DYE. FAMILY HISTORY: Mom is alive; she is 81 years old. She has a history of severe arthritis. Dad at age 70 of renal cell carcinoma. SOCIAL HISTORY: The patient states that she has never been a smoker, but she was drinking alcohol, but does not do so anymore. She is disabled. She has no children. She has a long-term boyfriend, Vadim Bradley, his phone number is , who she states will be her healthcare proxy. REVIEW OF SYSTEMS: A 14-point review of systems was completed with Ms. Mix and all those not mentioned above were negative. PHYSICAL EXAMINATION GENERAL: Ms. Mix is lying in the bed. She is in no acute distress. VITAL SIGNS: Temperature 98.0, pulse rate 98, respiratory rate 14, O2 saturation 100% on room air, blood pressure 119/77. LUNGS: Clear to auscultation bilaterally with no accessory muscle use and good aeration. HEART: S1, S2. No murmur, rub, or gallop and regular. ABDOMEN: Soft, nontender, with bowel sounds positive x4. EXTREMITIES: No cyanosis or edema. NEUROLOGIC: She is alert. She is oriented x3. She moves all extremities equally. There is no facial asymmetry or focal weakness. Extraocular movements are intact. SKIN: Intact. LABORATORY DATA: WBC 4.7, hemoglobin 15.2, hematocrit 44, platelet count 260. Sodium 135, potassium 3.4, chloride 98, serum bicarbonate 30, BUN 4, creatinine 0.65, glucose 105. ASSESSMENT AND PLAN: Ms. Mix is a 48-year-old female with past medical history of depression, chronic fatigue, and fibromyalgia, who presents again today with continued weight loss in the setting of subjective sense of abdominal pain and early satiety with a finding only so far of mild gastroparesis. Plans are for inpatient admission as I expect her length of stay to be greater than 2 days for the followin. Protein-calorie malnutrition. The patient has a BMI of 13. She needs acute intervention to assist with her caloric intake. We will look to place a post- pyloric feeding tube. The patient is hesitant to consider placement of that blindly at the bedside and would like to discuss possibility of having this placed endoscopically. I will need to discuss that tomorrow with Dr. Sepulveda. This plan was discussed with Dr. Linda and Dr. Cortés. If patient is agreeable to placing the feeding tube we will need of course be able to advance the feed very slowly to avoid refeeding syndrome. Dr. 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 Regardless of any underlying mild physical ailment that might be contributing to her symptoms, I am suspicious that her symptoms also have a significant component of somatization and I think the patient needs significant intervention from a multidisciplinary team in order to address her issues fully , and our hope is that she can at least be stabilized here and then transitioned over to a tertiary care facility where this multidisciplinary team would be available given the severity of her illness. 2. DVT prophylaxis with SCDs. 3. Disposition: To medical floor. TIME SPENT: Approximately 60 minutes were spent on the admission of this patient, more than half the time spent with the patient at the bedside reviewing the events leading up to this hospitalization, performing the physical examination, and reviewing the plan of care. LILI SALAZAR NP [id number]/[facility] #: [id number] JULIA
[2018-02-05] MEDS: Metoclopramide TAB* 10 MG PO SCH (13:05)
[2018-02-05] MEDS ORDERED: RIFAMPIN 150 MG PO SCH (18:00)
[2018-02-06] MEDS: Metoclopramide TAB* 10 MG PO SCH ×2 (05:40→14:09)
[2018-02-06] MEDS ORDERED: Metoclopramide TAB* 10 MG ONE (13:57)
[2018-02-06] MEDS: Polyethylene Glycol 3350* 17 GM PACKET PO SCH (14:09)
--- NOTE | 2018-02-06 14:43 | PN ---
Subjective Date of Service: 02/06/18 Interval History: Pt not in acute pain, however is in distress over her inability to take in food and feels like she is dying. Pt does not endorse abdominal pain, N/V/D. She is having some constipation, so milk of miralax has been ordered. Pt endorses eating 1 bite of food per hour, any more and she is worried her stomach will not be able to handle it and explode. Denies chest pain, headache, dizziness, shortness of breath, dysuria, numbness or tingling in extremities. Objective Active Medications: Metoclopramide HCl (Reglan Tab*) 5 mg PO 1300,0600 [facility] Ondansetron HCl (Zofran Inj*) 4 mg IV Q6H PRN PRN Reason: NAUSEA Polyethylene Glycol/Electrolytes (Miralax*) 17 gm PO DAILY [facility] Last Admin: 02/06/18 14:09 Dose: 17 gm Rifaximin (Xifaxan*) 550 mg PO BID [facility] Vital Signs - 8 hr 02/06/18 02/06/18 02/06/18 07:44 08:00 11:04 Temperature 97.8 F 98.0 F Pulse Rate 79 86 Respiratory 18 16 18 Rate Blood Pressure 102/69 103/70 (mmHg) O2 Sat by Pulse 99 98 Oximetry Oxygen Devices in Use Now: None Appearance: Very thin appearing woman in no acute distress Eyes: No Scleral Icterus, PERRLA Ears/Nose/Mouth/Throat: NL Teeth, Lips, Gums, Mucous Membranes Moist Neck: NL Appearance and Movements; NL JVP, Trachea Midline Respiratory: Symmetrical Chest Expansion and Respiratory Effort, Clear to Auscultation Cardiovascular: NL Sounds; No Murmurs; No JVD, No Edema Abdominal: NL Sounds; No Tenderness; No Distention Extremities: No Edema, No Clubbing, Cyanosis Skin: No Rash or Ulcers, No Nodules or Sclerosis Neurological: Alert and Oriented x 3, NL Sensation, NL Muscle Strength and Tone Lines/Tubes/Other Access: Clean, Dry and Intact Peripheral IV Nutrition: Taking PO's - Nutrition: Malnutrition Diagnosis/Plan Malnutrition Assessment by Registered Dietitian: Malnutrition Assessment Clinical Characteristics Chronic,Severe Malnutrition Assessment: - 16% wt loss since August 2017 (5-6 months) Criteria - < 75% estimated energy expenditure > 1 month - Severe temporal muscle wasting and fat wasting of upper extremities - Underweight status - BMI 13.8 Malnutrition Assessment: - Pt declined offer for an oral nutritional Interventions supplement or snacks between meals - Encouraged frequent intake of small high protein, and low fat/fiber meals - Will monitor initiation of enteral nutrition support s/p NJ tube placement Malnutrition Assessment: Goals 1. Intake will improve to promote weight repletion, hydration, and prevent additional weight loss. 2. Pt will tolerate initiation of NJ tube feedings w/o additional GI s/sx. 3. Appropriate clincal response (electrolytes WNL) following initiation of NJ tube feedings as pt is at risk of refeeding syndrome. Result Diagrams: 02/04/18 19:00 02/04/18 19:00 Assess/Plan/Problems-Billing Assessment: 48 year old female with PMH chronic fatigue syndrome and fibromyalgia who presented with weight loss and difficulty eating in the setting of feelings of early satiety and GI discomfort, now with protein- calorie malnutrition and BMI 13. - Patient Problems (1) Severe protein-calorie malnutrition Current Visit: No Status: Acute Priority: High Code(s): E43 - UNSPECIFIED SEVERE PROTEIN-CALORIE MALNUTRITION SNOMED Code(s): 085238956 Comment: - Secondary to impaired food intake in the setting of abdominal discomfort. BMI 13. Was seen for same in December, but has continued to lose weight since discharge. - Nutrition consult pending - Pt has been seeing Dr Linda as an outpatient, and has already had gastric emptying study which displayed mild gastroparesis, but no additioanl findings. - Pt was initially resistant to oral medications, but has agreed to try Reglan, which we started at a low dose yesterday, which pt tolerated, and will increase to 5 mg BID tomorrow. As there is also concern for SIBO, pt was started on Rifaximin as well. - Pt has ordered nutritional suppliment that fits her dietary constraints. Pt's partner will be bringing that today and it will be evaluated by nutrition. - Pt seen by Dr. Gage today. He agrees with reglana nd rifaxamin, and attempting to increase dose to goal. Also suggests trial of PPN to support nutrition while she has minimal intake. Would like to trial that, and if intake does not improve, consider NG/NJ tube placement so we can begin consistent feeding. Pt is at risk for refeeding syndrome and electrolyte abnormalities, so will have to proceed slowly. (2) Gastroparesis Current Visit: No Status: Acute Code(s): K31.84 - GASTROPARESIS SNOMED Code(s): 992143850 Comment: - Currently tolerating PO at one bite per hour. Denies abdominal pain, but does endorse discomfort/ "numbness" - Will continue reglan as above. - On last admission: EGD with bx- no explanatory abnormalities seen, pathology -negative. Gastric emptying study shows gastroparesis - not willing to take medications. GI felt this is mild and not the only contributing factor to her symptoms and severity of poor nutritional intake - Also was seen by psych on last admission who felt pt does not have anorexia. Have consulted psych again, as even if pt does not have eating disorder, could use extra support. (3) DVT prophylaxis Current Visit: No Status: Acute Code(s): ESQ2474 - SNOMED Code(s): 694000639 Comment: - SCDs and ambulation as tolerated (4) Full code status Current Visit: No Status: Acute Code(s): Z78.9 - OTHER SPECIFIED HEALTH STATUS SNOMED Code(s): 954091156 Comment: Status and Disposition: Inpatient Attending: Wale Bennett
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
[2018-02-06] MEDS: RiFAXimin* 550 MG TAB PO SCH (20:12)
--- NOTE | 2018-02-06 20:37 | PN ---
Subjective Date of Service: 02/05/18 Interval History: Ms. Mix continues to complain of fullness in her stomach when she eats. Today, she tells me that she actually has no sensation in her stomach but that she can feel that it is full by placing her hand on her abdomen. She feels that the food moves too slowly through her stomach and that she will feel like she will have acid reflux or perhaps a feeling like she may vomit. She does not vomit. She denies abdominal pain today. She is willing to try to take the reglan and rifiximin to treat gastroparesis and empirically treat for SIBO. I discussed placing an NG tube today but as I cannot guarantee that it will be post-pyloric she does not want to try that now. She denies other complaint. Objective Active Medications: Dextrose 1,000 ml/ Amino Acids 850 ml/ Sterile Water 150 ml/Fat Emulsion Intravenous 500 ml/ Sodium Chloride 100 meq/Potassium Chloride 50 meq/Potassium Phosphate 15 mmole/Calcium Gluconate 15 meq/Magnesium Sulfate 10 meq/ Multivitamins 10 ml/ Trace Metals 1 ml/ Nutrition ( Parenteral) 2,600.721 mls @ 108.422 mls/hr IV 1700 [facility]; Protocol Metoclopramide HCl (Reglan Tab*) 5 mg PO 1300,0600 [facility] Ondansetron HCl (Zofran Inj*) 4 mg IV Q6H PRN Polyethylene Glycol/Electrolytes (Miralax*) 17 gm PO DAILY [facility] Rifaximin (Xifaxan*) 550 mg PO BID [facility] Vital Signs - 8 hr 02/06/18 02/06/18 16:01 19:39 Temperature 97.7 F 98.1 F Pulse Rate 71 72 Respiratory 16 18 Rate Blood Pressure 105/68 104/67 (mmHg) O2 Sat by Pulse 98 97 Oximetry Oxygen Devices in Use Now: None Appearance: Cachectic female lying in bed in NAD Eyes: No Scleral Icterus Ears/Nose/Mouth/Throat: Mucous Membranes Moist Neck: Trachea Midline Respiratory: Symmetrical Chest Expansion and Respiratory Effort Cardiovascular: NL Sounds; No Murmurs; No JVD, No Edema Abdominal: NL Sounds; No Tenderness; No Distention Extremities: No Edema Skin: No Rash or Ulcers Neurological: Alert and Oriented x 3, NL Muscle Strength and Tone Nutrition: Taking PO's - Nutrition: Malnutrition Diagnosis/Plan Malnutrition Assessment by Registered Dietitian: Malnutrition Assessment Clinical Characteristics Chronic,Severe Malnutrition Assessment: - 16% wt loss since August 2017 (5-6 months) Criteria - < 75% estimated energy expenditure > 1 month - Severe temporal muscle wasting and fat wasting of upper extremities - Underweight status - BMI 13.8 Malnutrition Assessment: - Pt declined offer for an oral nutritional Interventions supplement or snacks between meals - Encouraged frequent intake of small high protein, and low fat/fiber meals - Will monitor initiation of enteral nutrition support s/p NJ tube placement Malnutrition Assessment: Goals 1. Intake will improve to promote weight repletion, hydration, and prevent additional weight loss. 2. Pt will tolerate initiation of NJ tube feedings w/o additional GI s/sx. 3. Appropriate clincal response (electrolytes WNL) following initiation of NJ tube feedings as pt is at risk of refeeding syndrome. Result Diagrams: 02/04/18 19:00 02/04/18 19:00 Assess/Plan/Problems-Billing Assessment: Ms Mix 48 year old female with PMH chronic fatigue syndrome and fibromyalgia who presented with weight loss and difficulty eating in the setting of feelings of early satiety and GI discomfort, now with protein-calorie malnutrition and BMI 13. - Patient Problems (1) Severe protein-calorie malnutrition Comment: - Secondary to impaired food intake in the setting of unclear symptoms of early satiety and abdominal fullness. BMI 13. Was seen for same in December, but has continued to lose weight since discharge. - Pt has been seeing Dr Linda as an outpatient, and has already had gastric emptying study which displayed mild gastroparesis, but no additioanl findings. CT abdomen without relevant findings. Endoscopy normal as well. - Pt was initially resistant to oral medications, but has agreed to try Reglan and rifiximin in treatment of gastroparesis and SIBO respectively. - She does not want to try the NG today. - Nutrition consult pending (2) Eating disorder, unspecified Comment: - Recommend psych consult tomorrow. - Suspect patient's malnutrition is multifactorial and that she has a component of depression, impaired/dysfunctional coping skills, hypersensitivity and somatization. - Plan to continue workup for underlying physical cause while discussing the above with her as well. (3) DVT prophylaxis Comment: - SCDs and ambulation as tolerated (4) Full code status Comment: Status and Disposition: Inpatient
[2018-02-07] MEDS: Metoclopramide TAB* 10 MG PO SCH ×2 (05:59→12:39)
[2018-02-07 07:47] LABS: ABS Basophils 0 10^3/ul (0-0.2); ABS Eosinophils 0 10^3/ul (0-0.6); ABS Monocytes 0.3 10^3/ul (0-0.8); ABS Neutrophils 2.2 10^3/ul (1.5-7.7); ABS Nucleated RBC 0 10^3/ul; Eosinophil % 1.1 % (0-6); Hematocrit 43 % (35-47); Hemoglobin 14.6 g/dl (12.0-16.0); Lymphocyte % 27.7 % (25-47); Mean Corpuscular HGB Conc 34 g/dl (31-36); Mean Corpuscular Hemoglobin 31 pg (27-31); Mean Corpuscular Volume 90 fL (80-97); Mean Platelet Volume 9.1 um3 (7.4-10.4); Nucleated Red Blood Cells % 0.1; Platelet Count 247 10^3/ul (150-450); Red Blood Count 4.72 10^6/ul (4.00-5.40); Red Cell Distribution Width 12 % (10.5-15); White Blood Count 3.5 10^3/ul (3.5-10.8)
[2018-02-07 08:07] LABS: EGFR Non-African American 97.3 (>60)
[2018-02-07] MEDS: RiFAXimin* 550 MG TAB PO SCH ×2 (09:02→20:09)
[2018-02-07] MEDS: Polyethylene Glycol 3350* 17 GM PACKET PO SCH (09:02)
--- NOTE | 2018-02-07 10:15 | PN ---
Subjective Date of Service: 02/07/18 Interval History: Patient reports she doesnt feel any better today and continues to have abdominal "numbness not being able to feel my stomach" as she points to her abdomen below her belly button. Denies cramping, pain. Reports more of a discomfort as soon as she swallows food she feels full and bloated after one small bite. She denies any diarrhea reporting she normally has formed BMs but the last several days has small "tiny" formed stools. Denies any difficulty with urination. No fever or chills. She states that she can barely make it to the bedside commode due to a feeling of palpitations and feeling weak. We discussed at length concern of her weight and inability to eat. I proposed continued work up with GI and asking psych to see her as well to create a multi- disciplinary team. Pt agrees with this plan. I also suggested she may best be served in an inpatient eating disorder facility. Pt does not think she has an eating disorder and does report "my body is gross and too thin". She does however state that she cant go home because she is dying. She is not willing to put more food in her stomach due to that is it going to "explode" and her stomach "feels numb". Objective Active Medications: Dextrose 1,000 ml/ Amino Acids 850 ml/ Sterile Water 150 ml/Fat Emulsion Intravenous 500 ml/ Sodium Chloride 100 meq/Potassium Chloride 50 meq/Potassium Phosphate 15 mmole/Calcium Gluconate 15 meq/Magnesium Sulfate 10 meq/ Multivitamins 10 ml/ Trace Metals 1 ml/ Nutrition ( Parenteral) 2,600.721 mls @ 108.422 mls/hr IV 1700 [facility]; Protocol Metoclopramide HCl (Reglan Tab*) 5 mg PO 1300,0600 [facility] Last Admin: 02/07/18 05:59 Dose: Not Given Ondansetron HCl (Zofran Inj*) 4 mg IV Q6H PRN PRN Reason: NAUSEA Polyethylene Glycol/Electrolytes (Miralax*) 17 gm PO DAILY [facility] Last Admin: 02/07/18 09:02 Dose: 17 gm Rifaximin (Xifaxan*) 550 mg PO BID [facility] Last Admin: 02/07/18 09:02 Dose: 550 mg Vital Signs - 8 hr 02/07/18 02/07/18 02/07/18 03:50 05:58 08:00 Temperature 97.8 F 98.1 F Pulse Rate 90 79 Respiratory 16 16 16 Rate Blood Pressure 93/65 95/66 (mmHg) O2 Sat by Pulse 96 99 Oximetry Oxygen Devices in Use Now: None Appearance: thin 48 yo female A+O x3 in NAD Eyes: No Scleral Icterus, PERRLA Ears/Nose/Mouth/Throat: NL Teeth, Lips, Gums, Mucous Membranes Moist Neck: NL Appearance and Movements; NL JVP Respiratory: Symmetrical Chest Expansion and Respiratory Effort, Clear to Auscultation Cardiovascular: NL Sounds; No Murmurs; No JVD, RRR, No Edema Abdominal: NL Sounds; No Tenderness; No Distention Extremities: No Edema, No Clubbing, Cyanosis Skin: No Rash or Ulcers, No Nodules or Sclerosis Neurological: Alert and Oriented x 3, NL Sensation, NL Gait, NL Muscle Strength and Tone Lines/Tubes/Other Access: Clean, Dry and Intact Peripheral IV Nutrition: Taking PO's - Nutrition: Malnutrition Diagnosis/Plan Malnutrition Assessment by Registered Dietitian: Malnutrition Assessment Clinical Characteristics Chronic,Severe Malnutrition Assessment: - 16% wt loss since August 2017 (5-6 months) Criteria - < 75% estimated energy expenditure > 1 month - Severe temporal muscle wasting and fat wasting of upper extremities - Underweight status - BMI 13.8 Malnutrition Assessment: - Pt declined offer for an oral nutritional Interventions supplement or snacks between meals - Encouraged frequent intake of small high protein, and low fat/fiber meals - Will monitor initiation of enteral nutrition support s/p NJ tube placement Malnutrition Assessment: Goals 1. Intake will improve to promote weight repletion, hydration, and prevent additional weight loss. 2. Pt will tolerate initiation of NJ tube feedings w/o additional GI s/sx. 3. Appropriate clincal response (electrolytes WNL) following initiation of NJ tube feedings as pt is at risk of refeeding syndrome. Result Diagrams: 02/07/18 07:06 02/07/18 07:06 Assess/Plan/Problems-Billing Assessment: Ms Mix 48 year old female with PMH chronic fatigue syndrome and fibromyalgia who presented with weight loss and difficulty eating in the setting of feelings of early satiety and GI discomfort, now with protein-calorie malnutrition and BMI 13. - Patient Problems (1) Severe protein-calorie malnutrition Comment: - Secondary to impaired food intake in the setting of unclear symptoms of early satiety and abdominal fullness. BMI 13. Was seen for same in December, but has continued to lose weight since discharge. - Pt has been seeing Dr Linda as an outpatient, and has already had gastric emptying study which displayed mild gastroparesis, but no additional findings. CT abdomen without relevant findings. Endoscopy normal as well. - Pt was initially resistant to oral medications, but has agreed to try Reglan in treatment of gastroparesis and and rifiximin for empirically treatment for SIBO - Appreciate GI consult does not recommend post-pyloric NG - Nutrition following - Plan for PPN today - - psych consult pending (2) Eating disorder, unspecified Comment: - Appreciate psych consult - Pt has agreed to start duloxetine. I do note that she told psychiatry she has symptoms 10-15 minutes after she eats (she was asked to eat in front of psychiatrist) - this is inconsistent of what she told me - She did eat in front of me during exam and took one small bite then stating "I cant take anymore because of the sensation". Very difficult to sort out her report of what she is experincing. - Suspect patient's malnutrition is multifactorial and that she has a component of depression, impaired/dysfunctional coping skills, hypersensitivity and somatization. - Plan to continue workup for underlying physical cause while discussing the above with her as well. - Social work following (3) Abdominal distress Comment: - Follows with Dr. Linda as outpt - Will obtain abdominal doppler as recommended by GI- usually is done as outpatient but patient is home bound and/or will hopefully be transferred to inpatient eating disorder facility. (4) Full code status Comment: (5) DVT prophylaxis Comment: - SCDs and ambulation as tolerated Status and Disposition: Inpatient, Unclear discharge plan. Social work following. Looking into eating disorder inpatient treatment facility in [place].
[2018-02-07] MEDS ORDERED: DULoxetine DR CAP* 20 MG CAP.DR PO ONE (13:56)
--- NOTE | 2018-02-07 14:04 | CONSULT ---
Consult Consult: S: Mela is seen today by the psych consult team for follow up. For further history, please refer to my dictated consultation assessment dated 01/03/18. At this time, the patient continues to have extreme aversions to eating because of her fears of discomfort and the sense that her stomach will explode if challenged with too much food and drink at a time. She denies depression or even anxiety related to eating. I ask her to consume some of her lunch in my presence, which she does without reluctance, albeit at a low amount. "It doesn' t bother me when I'm actually eating it. It usually comes about 10 or 15 minutes after I eat." We discuss the possibility of an antidepressant that might reduce stress and food-related anxiety, to which she reluctantly agrees. I see no evidence of independent psychotic issues and her affect is fairly full. She continues to deny body image issues or feeling overweight. "Oh no, I don't like being this thin. I want to eat!" O: thin middle-aged white female in sweater and patient gown; good grooming; good eye contact; euthymic with full affect; denies SI/HI, denies AH/VH; insight and judgment seem lacking regarding nutrition; awake and alert with average intellect A/P: Eating DO, NOS: certainly not classic anorexia nervosa, given the absence of body image issues. Patient agreeable to start duloxetine 30mg PO qday to reduce stress and perhaps lessen somatic sensations. Psychiatry will follow along with primary team.
[2018-02-07] MEDS ORDERED: TPN* 24 HR with D10W 1000 ML BAG* 1,000 ML, Amino Acid Infusion 10%* 850 ML, Sterile Wa... IV SCH ×12 (17:00)
[2018-02-07] MEDS ORDERED: PEG 3000 GI LAVAGE* 1 GALLON PO ONE (18:13)
[2018-02-07] MEDS: Ondansetron INJ* 2 MG/ML VIAL IV PRN (22:08)
[2018-02-08] MEDS: Metoclopramide TAB* 10 MG PO SCH ×4 (05:23→20:37)
--- NOTE | 2018-02-08 08:51 | RAD ---
INDICATION: Postprandial abdominal pain and weight loss COMPARISON: Noncontrast CT of the abdomen and pelvis dated December 29, 2017 TECHNIQUE: Heath scale, color Doppler, and spectral analysis of the abdominal aorta and mesenteric arteries was performed. REPORT: Aortic velocities: Proximal: 80 cm/s Mid: 103 cm/s Distal: 74 cm/s Celiac axis velocities: Trunk: 141 cm/s The celiac access is patent and morphologically normal. Superior mesenteric artery velocities: Ostium: 127 cm/s Proximal: 193 cm/s Distal: 139 cm/s The superior mesenteric artery appears morphologically normal and adequately patent. Inferior mesenteric artery velocities: Ostium: 96 cm/s Proximal: 83 cm/s Doppler waveforms: In the interrogated mesenteric arteries, Doppler waveforms are biphasic. IMPRESSION: Normal sonographic evaluation of the mesenteric arteries without any sonographic findings consistent with mesenteric ischemia.
[2018-02-08] MEDS: Polyethylene Glycol 3350* 17 GM PACKET PO SCH (09:35)
[2018-02-08] MEDS: DULoxetine DR CAP* 30 MG CAP.DR PO SCH (09:36)
[2018-02-08] MEDS: RiFAXimin* 550 MG TAB PO SCH ×2 (09:36→21:34)
[2018-02-08] MEDS: Ondansetron INJ* 2 MG/ML VIAL IV PRN (10:20)
--- NOTE | 2018-02-08 13:43 | PN ---
Subjective Date of Service: 02/08/18 Interval History: patient reports she is "trying hard to get it down" she is still having liquid brown stools. Feels a little nauseous, no vomiting. At this point she agrees to go to [facility] if she can get into the eating disorder inpatient clinic, even though she denies an eating disorder. She states "I dont want to and this may be my only hope". Objective Active Medications: Duloxetine HCl (Cymbalta Cap*) 30 mg PO DAILY [facility] Last Admin: 02/08/18 09:36 Dose: Not Given Dextrose 1,000 ml/ Amino Acids 850 ml/ Sterile Water 150 ml/Fat Emulsion Intravenous 500 ml/ Sodium Chloride 100 meq/Potassium Chloride 50 meq/Potassium Phosphate 15 mmole/Calcium Gluconate 15 meq/Magnesium Sulfate 10 meq/ Multivitamins 10 ml/ Trace Metals 1 ml/ Nutrition ( Parenteral) 2,600.721 mls @ 108.422 mls/hr IV 1700 [facility]; Protocol Stop: 02/08/18 16:59 Last Admin: 02/07/18 18:16 Dose: 108.422 mls/hr Metoclopramide HCl (Reglan Tab*) 5 mg PO 1300,0600 [facility] Last Admin: 02/08/18 05:23 Dose: Not Given Ondansetron HCl (Zofran Inj*) 4 mg IV Q6H PRN PRN Reason: NAUSEA Last Admin: 02/08/18 10:20 Dose: 4 mg Polyethylene Glycol/Electrolytes (Miralax*) 17 gm PO DAILY [facility] Last Admin: 02/08/18 09:35 Dose: Not Given Rifaximin (Xifaxan*) 550 mg PO BID [facility] Last Admin: 02/08/18 09:36 Dose: Not Given Vital Signs - 8 hr 02/08/18 02/08/18 07:18 08:00 Temperature 97.6 F Pulse Rate 75 Respiratory 18 18 Rate Blood Pressure 103/66 (mmHg) O2 Sat by Pulse 97 Oximetry Oxygen Devices in Use Now: None Appearance: thin 48 yo female A+O x3 in NAD Eyes: No Scleral Icterus, PERRLA Ears/Nose/Mouth/Throat: NL Teeth, Lips, Gums, Mucous Membranes Moist Neck: NL Appearance and Movements; NL JVP Respiratory: Symmetrical Chest Expansion and Respiratory Effort, Clear to Auscultation Cardiovascular: NL Sounds; No Murmurs; No JVD, RRR, No Edema Abdominal: NL Sounds; No Tenderness; No Distention Extremities: No Edema, No Clubbing, Cyanosis Skin: No Rash or Ulcers, No Nodules or Sclerosis Neurological: Alert and Oriented x 3, NL Sensation, NL Muscle Strength and Tone Lines/Tubes/Other Access: Clean, Dry and Intact Peripheral IV Nutrition: Taking PO's - Nutrition: Malnutrition Diagnosis/Plan Malnutrition Assessment by Registered Dietitian: Malnutrition Assessment Clinical Characteristics Chronic,Severe Malnutrition Assessment: - 16% wt loss since August 2017 (5-6 months) Criteria - < 75% estimated energy expenditure > 1 month - Severe temporal muscle wasting and fat wasting of upper extremities - Underweight status - BMI 13.8 Malnutrition Assessment: - Pt declined offer for an oral nutritional Interventions supplement or snacks between meals - Encouraged frequent intake of small high protein, and low fat/fiber meals - Will monitor initiation of enteral nutrition support s/p NJ tube placement Malnutrition Assessment: Goals 1. Intake will improve to promote weight repletion, hydration, and prevent additional weight loss. 2. Pt will tolerate initiation of NJ tube feedings w/o additional GI s/sx. 3. Appropriate clincal response (electrolytes WNL) following initiation of NJ tube feedings as pt is at risk of refeeding syndrome. Result Diagrams: 02/07/18 07:06 02/07/18 07:06 Assess/Plan/Problems-Billing Assessment: Ms Mix 48 year old female with PMH chronic fatigue syndrome and fibromyalgia who presented with weight loss and difficulty eating in the setting of feelings of early satiety and GI discomfort, now with protein-calorie malnutrition and BMI 13. - Patient Problems (1) Severe protein-calorie malnutrition Comment: - Secondary to impaired food intake in the setting of unclear symptoms of early satiety and abdominal fullness. BMI 13. Was seen for same in December, but has continued to lose weight since discharge. - Pt has been seeing Dr Linda as an outpatient, and has already had gastric emptying study which displayed mild gastroparesis, but no additional findings. CT abdomen without relevant findings. Endoscopy normal as well. - Pt was initially resistant to oral medications, but has agreed to try Reglan in treatment of gastroparesis and and rifiximin for empirically treatment for SIBO - Appreciate GI consult does not recommend post-pyloric NG - Nutrition following - DC PPN today and encourage po intake - appreciate psych consult -pt agrees to start antidepressant, thinks she would be best served inpatient eating disorder facility. (2) Eating disorder, unspecified Comment: - See above - Social work following (3) Abdominal distress Comment: - Follows with Dr. Linda as outpt - Mesenteric abdominal doppler with normal flow. Did discuss with Radiologist Dr. Ventura who states the patient has also has noted uterine fibroids - per patient she has not had any vaginal bleeding for many years and went through menopause early. - Plan for colonoscopy - pt undergoing prep at this tme. Needs to be NPO for 2 hours prior to scope. (4) Abnormal thyroid function test Comment: - Elevated Thyroid ab. Discussed over the phone with Dr. Samuels (endocrine) - who states the patient is euthyroid and elevated antibodies are nonspecific. (5) Full code status Comment: (6) DVT prophylaxis Comment: - SCDs and ambulation as tolerated Status and Disposition: Inpatient, Unclear discharge plan. Social work following. Looking into eating disorder inpatient treatment facility in [facility]
[2018-02-08] MEDS ORDERED: fentaNYL* 50 MCG/ML 2 ML VIAL (100 MCG VIAL) ONE ×2 (14:31→14:32)
[2018-02-08] MEDS ORDERED: Midazolam* 1 MG/ML 10 ML VIAL (10 MG) ONE ×2 (14:32)
--- NOTE | 2018-02-08 14:48 | CONSULT ---
Consult Consult: Psychiatry attempted to follow up with Ms. Mix, however, she is off unit at her scheduled colonoscopy this afternoon. [facility] staff indicate that she was NPO this morning in advance of her procedure so she could not eat anything regardless of her symptoms. Psychiatry remains in support of the patient being referred to a specialty inpatient eating disorders program. We will follow up tomorrow.
--- NOTE | 2018-02-08 20:04 | PRO ---
PROCEDURE REPORT: DATE OF PROCEDURE: 02/08/18 PROCEDURE: Colonoscopy with biopsy. INDICATION: Weight loss, abdominal discomfort, gas, bloating. Workup so far has been notable only for gastroparesis. Currently hospitalized with ongoing GI symptoms. MEDICATIONS GIVEN: 1. Fentanyl 50 mcg 2. Versed 4 mg. DESCRIPTION OF PROCEDURE: Full disclosure of risks was reviewed with the patient as detailed on the consent form. The patient was placed in the left lateral decubitus position and monitored with continuous pulse oximetry, capnography, interval blood pressure monitoring, and direct observation. After anorectal exam was performed, the colonoscope was inserted into the rectum and advanced under direct vision to the level of the terminal ileum. The cecum was fully inflated allowing a complete view including the medial wall between the IC valve and the appendiceal orifice. Quality of the prep was good. The procedure was difficult given the patient's thin body habitus and tortuous splenic and hepatic flexures. The patient was placed in the supine position and abdominal pressure was used to advance the scope forward. Careful inspection was made and the colonoscope was withdrawn. A retroflexed view of the rectum was performed. Findings and interventions are described below. The patient tolerated the procedure well and recovered in the GI recovery area. FINDINGS: Anorectal exam was unremarkable. Scope was advanced slowly to the terminal ileum. The terminal ileal mucosa was normal x15 cm. The scope was then withdrawn into the cecum, which was normal in appearance. The scope was then slowly withdrawn throughout the length of the colon. Colonic mucosa was carefully examined for any evidence of polyp, masses, inflammation, or AVMs. The colonic mucosa was normal in appearance. Random biopsies were obtained throughout the colon and rectum. Rectal retroflexion was notable for small internal hemorrhoids. The scope was then withdrawn from the patient. IMPRESSION: 1. Unremarkable exam to the terminal ileum. Random colonic biopsies obtained. I discussed the colonoscopy findings with the patient and the patient's provider , Tiffanie Monte NP. Recommend increasing Reglan from 5 mg b.i.d. to 5 mg four times a day in order to treat gastroparesis as this is the only abnormal finding her workup thus far revealed. The patient will also continue on rifaximin as empiric treatment for SIBO. She was also recently started on Cymbalta and will continue on that for now. [id number]/[facility] #: [id number] [facility]
[2018-02-09 06:11] LABS: ABS Basophils 0 10^3/ul (0-0.2); ABS Eosinophils 0.1 10^3/ul (0-0.6); ABS Lymphocytes 0.7 10^3/ul (1.0-4.8); ABS Monocytes 0.3 10^3/ul (0-0.8); ABS Neutrophils 2.5 10^3/ul (1.5-7.7); ABS Nucleated RBC 0 10^3/ul; Eosinophil % 3.4 % (0-6); Hematocrit 38 % (35-47); Lymphocyte % 20.2 % (25-47); Mean Corpuscular HGB Conc 35 g/dl (31-36); Mean Corpuscular Hemoglobin 31 pg (27-31); Mean Corpuscular Volume 90 fL (80-97); Mean Platelet Volume 8.8 um3 (7.4-10.4); Nucleated Red Blood Cells % 0.1; Platelet Count 219 10^3/ul (150-450); Red Blood Count 4.19 10^6/ul (4.00-5.40); Red Cell Distribution Width 13 % (10.5-15); White Blood Count 3.7 10^3/ul (3.5-10.8)
[2018-02-09 06:35] LABS: EGFR Non-African American 102.7 (>60)
[2018-02-09] MEDS: RiFAXimin* 550 MG TAB PO SCH ×2 (10:45→21:32)
[2018-02-09] MEDS: DULoxetine DR CAP* 30 MG CAP.DR PO SCH (10:45)
[2018-02-09] MEDS: Metoclopramide TAB* 10 MG PO SCH ×4 (11:05→21:32)
[2018-02-09] MEDS: Polyethylene Glycol 3350* 17 GM PACKET PO SCH (11:09)
--- NOTE | 2018-02-09 14:27 | CONSULT ---
Identification - Patient Identification Reason for Psychiatric Consultation: Incapacitating Symptoms -: Patient is a 48 year old, F admitted on 02/04/18. - MHU Identification Employment Status: Disabled Hx Psychiatric Hospitalization: Yes History - Objective HPI: Mela is frustrated that an organic etiology for her eating dysfunction has not been discovered and reveals to me her fears that she is viewed by caregivers as embellishing her symptoms. "I'm not looking for attention, believe me. This has caused real problems for me and my family. Everybody is worried and it's disrupted everything." She informs me that her intention is to switch outpatient primary care and GI doctors, expressing that her current clinicians do not have time for her and don't listen to her. She acknowledges very positive transference towards her former PMD, Johnny King, feeling that he was warm and available. When I suggest that perhaps she is looking for similar nurturance from a benign, male authority figure she protests this, saying "Oh no. I've never had a problem with strong females." I did discuss her diagnosis of unspecified eating disorder, as well as my recommendation that she stay on duloxetine and seek psychotherapy in the community. She reluctantly seems to accept this. She continues to deny SI, HI or body image issues. Exam Appearance: Thin Framed Hygiene: Normal Grooming: Well Kept Psychomotor Activities: Abnormal-Decreased Exhibits Abnormal Movement: No Attitude and Relatedness: Cooperative Eye Contact: Good - Speech Quality: Unpressured Latencies: Normal Quantity: Appropriate Patient's Decription of Mood: "Okay" Observed Affect: Fair Affect Consistent with: Euthymia Patient's Thought Process: Coherent Thought Content: No Passive Wish, No Suicidal Planning, No Homicidal Ideation, No Paranoid Ideation Experiencing Hallucinations: No, Sensorium is Clear Type of Hallucinations: Visual: No, Auditory: No, Command: No Level of Consciousness: Alert Orientation: Yes Intact, Yes Orientated to Time, Yes Orientated to Place, Yes Orientated to Person Impulse Control: Tenuous Insight and Judgement: Impaired Impression - Impression Clinical Impression: 48 y.o. single, white female with a history of fibromyalgia and chronic pain admitted to medicine due to difficulty eating in the setting of intense feelings of over-engorgement, which has led to significant unintentional and dangerous weight loss. Merits Inpatient Hospitalization: No MHU: Problem List - Patient Problems (1) Eating disorder, unspecified Current Visit: Yes Status: Acute Priority: Medium Code(s): F50.9 - EATING DISORDER, UNSPECIFIED SNOMED Code(s): 05822829 Plan - Treatment Plan Treatment Plan: Patient placed on duloxetine 30mg PO qday. Recommend eating disorder specialty treatment in the community. Continued Medication Management: Start Medication Medications: Current Medications Duloxetine HCl (Cymbalta Cap*) 30 mg PO DAILY [facility] Last Admin: 02/09/18 10:45 Dose: 30 mg Metoclopramide HCl (Reglan Tab*) 5 mg PO QID [facility] Last Admin: 02/09/18 13:44 Dose: 5 mg Ondansetron HCl (Zofran Inj*) 4 mg IV Q6H PRN PRN Reason: NAUSEA Last Admin: 02/08/18 10:20 Dose: 4 mg Polyethylene Glycol/Electrolytes (Miralax*) 17 gm PO DAILY [facility] Last Admin: 02/09/18 11:09 Dose: Not Given Rifaximin (Xifaxan*) 550 mg PO BID [facility] Last Admin: 02/09/18 10:45 Dose: Not Given - Discharge Plan Discharge Plan: Outpatient Follow Up
--- NOTE | 2018-02-09 16:10 | PN ---
Subjective Date of Service: 02/09/18 Interval History: Patient seen, on the phone with her PCP. Patient states she is not being listened to in terms of her complaints. States she wants a G-Tube and is quoting [employer] statistics on patients with her diagnosis doing "well" with a G- Tube and she feels she will gain weight then. She also states her gastroparesis is "severe" and no one is listening. Explained that she remains on appropriate medical therapy for gastroparesis and that we still recommend outpatient follow up for eating disorder, as anatomically, she can eat and is choosing not to, and inserting a G-tube would not be an appropriate option at this time. No current vomiting noted. Objective Active Medications: Duloxetine HCl (Cymbalta Cap*) 30 mg PO DAILY [facility] Last Admin: 02/09/18 10:45 Dose: 30 mg Metoclopramide HCl (Reglan Tab*) 5 mg PO QID [facility] Last Admin: 02/09/18 13:44 Dose: 5 mg Ondansetron HCl (Zofran Inj*) 4 mg IV Q6H PRN PRN Reason: NAUSEA Last Admin: 02/08/18 10:20 Dose: 4 mg Polyethylene Glycol/Electrolytes (Miralax*) 17 gm PO DAILY [facility] Last Admin: 02/09/18 11:09 Dose: Not Given Rifaximin (Xifaxan*) 550 mg PO BID [facility] Last Admin: 02/09/18 10:45 Dose: Not Given Vital Signs - 8 hr 02/09/18 02/09/18 11:27 14:13 Temperature 97.1 F Pulse Rate 84 72 Respiratory 18 18 Rate Blood Pressure 119/69 107/67 (mmHg) O2 Sat by Pulse 99 98 Oximetry Oxygen Devices in Use Now: None Appearance: alert, flat affect, thin Eyes: No Scleral Icterus, PERRLA Ears/Nose/Mouth/Throat: NL Teeth, Lips, Gums, Mucous Membranes Moist Neck: NL Appearance and Movements; NL JVP, Trachea Midline Respiratory: Symmetrical Chest Expansion and Respiratory Effort, Clear to Auscultation Cardiovascular: NL Sounds; No Murmurs; No JVD, RRR, No Edema Abdominal: NL Sounds; No Tenderness; No Distention, No Hepatosplenomegaly Extremities: No Edema, No Clubbing, Cyanosis Skin: No Rash or Ulcers Neurological: Alert and Oriented x 3 Nutrition: - - poor PO intake, no vomiting - Nutrition: Malnutrition Diagnosis/Plan Malnutrition Assessment by Registered Dietitian: Malnutrition Assessment Clinical Characteristics Chronic,Severe Malnutrition Assessment: - 16% wt loss since August 2017 (5-6 months) Criteria - < 75% estimated energy expenditure > 1 month - Severe temporal muscle wasting and fat wasting of upper extremities - Underweight status - BMI 13.8 Malnutrition Assessment: - Pt declined offer for an oral nutritional Interventions supplement or snacks between meals - Encouraged frequent intake of small high protein, and low fat/fiber meals - Will monitor initiation of enteral nutrition support s/p NJ tube placement Malnutrition Assessment: Goals 1. Intake will improve to promote weight repletion, hydration, and prevent additional weight loss. 2. Pt will tolerate initiation of NJ tube feedings w/o additional GI s/sx. 3. Appropriate clincal response (electrolytes WNL) following initiation of NJ tube feedings as pt is at risk of refeeding syndrome. Result Diagrams: 02/09/18 05:44 02/09/18 05:44 Assess/Plan/Problems-Billing Assessment: This is a 48 year old female with PMH chronic fatigue syndrome and fibromyalgia who presented with weight loss and difficulty eating in the setting of feelings of early satiety and GI discomfort, now with protein-calorie malnutrition and BMI 13. - Patient Problems (1) Gastroparesis Code(s): K31.84 - GASTROPARESIS SNOMED Code(s): 150490134 Comment: - Mild as per GI - EGD with bx, no explanatory abnormalities seen, pathology is negative. - Gastric emptying study shows gastroparesis, currently optimized on reglan - Nutrition and GI following (2) Eating disorder, unspecified Code(s): F50.9 - EATING DISORDER, UNSPECIFIED SNOMED Code(s): 32551528 Comment: - Appreciate recs by psychiatry - This is likely multifactorial in setting of gastroparesis and severe protein calorie malnutrition, but patient does not have clear insight into the potential for psychiatric etiology - SW following closely, patient does not meet criteria for program in [facility] - Will need outpatient support, patient currently waiting on bed offer from [facility] facility (3) Severe protein-calorie malnutrition Code(s): E43 - UNSPECIFIED SEVERE PROTEIN-CALORIE MALNUTRITION SNOMED Code(s) : 720240514 Comment: - Secondary to impaired food intake in the setting of unclear symptoms of early satiety and abdominal fullness. BMI 13. Was seen for same in December, but has continued to lose weight since discharge. Components of gastroparesis and eating disorder but states she does not have body dysmorphia - Has been seeing Dr Linda as an outpatient - PPN was discontinued as patient does not have a functional/pathologic GI issue - Nutrition following, continue calorie count and supportive care (4) Abdominal distress Code(s): R10.9 - UNSPECIFIED ABDOMINAL PAIN SNOMED Code(s): 033713320 Comment: - Follows with Dr. Linda as outpatient however, patient states to that she's changing doctors - Mesenteric abdominal doppler with normal flow. Did discuss with Radiologist Dr. Ventura who states the patient has also has noted uterine fibroids - per patient she has not had any vaginal bleeding for many years and went through menopause early. - Colonoscopy with no glaring abnormalities, follow biopsies (5) Abnormal thyroid function test Comment: - Euthyroid with non-specific Atb. - Monitor as outpatient (6) DVT prophylaxis Code(s): IPB4069 - SNOMED Code(s): 768674236 Comment: - SCDs and ambulation as tolerated (7) Full code status Code(s): Z78.9 - OTHER SPECIFIED HEALTH STATUS SNOMED Code(s): 950404833 Comment: Status and Disposition: Inpatient: patient was not accepted at treatment center in [facility], unclear what the safest DC plan will be. Appreciate recommendations from . Patient is medically stable for discharge when appropriate follow up plan is in place.
[2018-02-10] MEDS: DULoxetine DR CAP* 30 MG CAP.DR PO SCH (08:21)
[2018-02-10] MEDS: RiFAXimin* 550 MG TAB PO SCH (08:21)
[2018-02-10] MEDS: Metoclopramide TAB* 10 MG PO SCH ×2 (08:21→15:04)
[2018-02-10] MEDS: Polyethylene Glycol 3350* 17 GM PACKET PO SCH ×2 (08:22→08:24)
[2018-02-10 11:51] VITALS: BP 124/74
--- NOTE | 2018-02-11 04:10 | DS ---
CC: Dr. Tilley; Dr. Kang; Dr. Gage; Dr. Hernandez; Krystian Welsh MD; Raffi Garza MD DISCHARGE SUMMARY: DATE OF ADMISSION: DATE OF DISCHARGE: DISCHARGE DIAGNOSES: 1. Gastroparesis, mild. 2. Unspecified eating disorder, causing early satiety. 3. Severe protein calorie malnutrition secondary to #2. 4. Elevated thyroid peroxidase antibody, to be followed up as an outpatient. HOME MEDICATIONS: Are as follows: 1. Duloxetine 30 mg p.o. daily. 2. Metoclopramide 5 mg p.o. 4 times a day. 3. Xifaxan 550 mg p.o. b.i.d. 4. Tylenol 325 mg p.o. q.6 p.r.n. 5. Clarinex D 12-hour tablet 1 tab p.o. daily p.r.n. 6. Epinephrine 0.15 mg IM p.r.n. 7. Fluticasone nasal spray 1 to 2 sprays both nares daily. 8. Multivitamins 1 tab p.o. daily. 9. MiraLAX 17 g p.o. b.i.d. p.r.n. HISTORY OF PRESENT ILLNESS/HOSPITAL COURSE: The patient is a 48-year-old lady with history of depression, fibromyalgia, chronic fatigue syndrome as well as protein calorie malnutrition secondary to feeling of early satiety after eating with no clear etiology other than mild gastroparesis, who mentions that her symptoms began in July of last year after she took some antibiotics. She states that she has had a violent reaction to the antibiotics and since then, she has essentially stopped eating. She reports bloating and discomfort in her abdomen even after 1 bite of food and feels that her food is processed through her abdomen very slowly and feels it transits very acutely. During this visit, she had mesenteric arterial Doppler done, which showed normal sonographic evaluation of her mesenteric arteries inconsistent with mesenteric ischemia. She also had a colonoscopy with biopsy done by Dr. Gilson Dean on 02/04/18, which showed unremarkable exam to the terminal ileum and random colonic biopsies were obtained as well, which the pathology shows benign colonic mucosa with no significant pathologic abnormalities with no evidence of microscopic colitis. However, given her chronic complaints of early satiety as discussed above despite negative colonoscopy and biopsy, she had been advised to take metoclopramide 5 mg p.o. [address] day [address] Linda for her mild gastroparesis as well as to empirically treat her for SIBO with Xifaxan. She was evaluated by Dr. Goldstein as well, who suspects a nonspecific eating disorder and was placed on Cymbalta with outpatient followup with outpatient psychiatry. She had been advised to follow up or recall her PCP within 3 days post discharge and if her symptoms resume or develop new ones or if she feels unwell for any reason, to call her PCP first and if her PCP cannot entertain her due to scheduling issues alone, to call [facility] if her issue is considered nonemergent. She was advised to follow up with [facility] immediately/[facility]. She was advised to take more bites per small frequent feedings and she was informed that one of her thyroid antibodies that was tested (i.e. thyroid peroxidase) was found to be significantly elevated during her workup and she was advised to discuss this with her PCP on her next followup to further develop a treatment/diagnostic plan as an outpatient if needed. She was advised to call my office regarding any questions or concerns or further clarifications regarding her discharge plans and/or prescriptions and to take her medications as prescribed. REVIEW OF SYSTEMS: She denies any current headaches, dizziness, fevers, chills , nausea, vomiting. She does complain of some early satiety and abdominal fullness and bloatedness even after 1 bite of food. Other than this, she denies any diarrhea, constipation, myalgias, arthralgias, throat pain or new skin lesions. The rest of the 14-point review of systems are otherwise unremarkable. PHYSICAL EXAMINATION: Most recent vital signs of records with blood pressure of 124/74, 97.6 degrees Fahrenheit, 74 beats per minute heart rate, 18 per minute respiratory rate, saturating at 98% room air. General appearance: The patient is awake, alert and oriented x3, not in acute distress, cachectic. HEENT: Normocephalic, atraumatic, PERRLA, extraocular muscles intact, negative for icterus, moist oral mucosa. Negative throat erythema. Neck is soft, supple with no cervical lymphadenopathy. No JVD. Heart: S1, S2, within normal limits. Regular rate and rhythm. No murmurs, rubs and gallops. Chest: Clear to auscultation bilaterally. Good air entry. No wheezes, rales and rhonchi. Abdomen is soft, nondistended, nontender. Normoactive bowel sounds 4x quadrants. Extremities: No cyanosis, clubbing, or edema. Psychiatric: No active psychosis nor hallucinations. TIME SPENT: The total time spent evaluating patient, reviewing pertinent data and appropriate documentation is 50 minutes. [id number]/[facility] #: [id number] [facility]
== END 2018-02-10 16:13 | disposition home or self-care (01) | DRG 254 ==
LOC: ED 17:15 → MED 18:58
PROVIDERS: ADMIT Internal Medicine; ATTEND Student in an Organized Health Care Education/Training Program
PROC: 0DDE8ZX Extraction of Large Intestine, Via Natural or Artificial Opening Endoscopic, Diagnostic (ICD-10-PCS; principal; 2018-02-08)
DX: K31.84 Gastroparesis (principal); E43 Unspecified severe protein-calorie malnutrition; Z68.1 Body mass index [BMI] 19.9 or less, adult; F50.9 Eating disorder, unspecified; F32.9 Major depressive disorder, single episode, unspecified; M79.7 Fibromyalgia; R53.82 Chronic fatigue, unspecified; E87.6 Hypokalemia; K64.8 Other hemorrhoids; R94.6 Abnormal results of thyroid function studies; Z79.899 Other long term (current) drug therapy; Z82.61 Family history of arthritis; Z80.51 Family history of malignant neoplasm of kidney
CPT/HCPCS: 36415; 80048; 80053; 82175; 82300; 82525; 83655; 83735; 83825; 84100; 84134; 84439; 84443; 84481; 84630; 85025; 86376; 86800; 88305; 90686; 93005; 93975; 99156; 99157; 99282; A9270-GY; G8978-GP-CH; G8979-GP-CH; G8980-GP-CH; J0610; J2250; J2405; J3010; J3475; J3480

== ENCOUNTER 2018-04-27 17:52 | Inpatient (IN) | payer BC ==
--- OUTSIDE RECORDS SUMMARY | 2018-04-27 18:45 | XMS REPORT | Continuity of Care Document ---
:1970 External Reference #:[id number] Author Name Viviana Linda MD Address [address] [facility] [place] [address] Care Team Providers Name Role Phone Niharika Cortés MD Primary Care Physician Unavailable Payers Type Date Identification Numbers Payment Provider Subscriber Policy Number: [id number] [employer] PayID: [id number] [address] [address] [place] [address] Expires: 2018 Policy Number: [id number] [facility] [employer] PayID: [id number] [address] [place] [address] Advance Directives Description No Information Available Problems Description No Information Family History Description No Information Available Social History Type Date Description Comments Sex Unknown Tobacco Use Start: Unknown Patient has never smoked Smoking Status Reviewed: 04/25/18 Patient has never smoked Allergies, Adverse Reactions, Alerts Description No Known Drug Allergies Medications Medication Date Status Form Strength Qnty SIG Indications Ordering Provider Buspirone HCL 04/21/19 Active Tablets 5mg 90tabs Take 1 Viviana 19 tablet Maddi coppola MD ties a day Neomycin Hx Tablets 500mg Take 1 Unknown Sulfate 00 - Tablet By 04/24/19 Mouth Two 19 Times Daily Xifaxan Hx Tablets 550mg Take 1 Unknown 00 - Tablet By 04/24/19 Mouth 19 Every 12 Hours Immunizations Description No Information Available Vital Signs Date Vital Result Comment 04/25/2018 11:36am Height 65.5 inches 5'5.50" Weight 83.00 lb BP Systolic 96 mmHg BP Diastolic 78 mmHg Heart Rate 118 /min BMI (Body Mass Index) 13.6 kg/m2 03/14/2018 3:14pm Height 65.5 inches 5'5.50" Weight 89.00 lb BP Systolic 100 mmHg BP Diastolic 66 mmHg Heart Rate 88 /min BMI (Body Mass Index) 14.6 kg/m2 01/10/2018 2:32pm Height 65.5 inches 5'5.50" Weight 83.00 lb BP Systolic 106 mmHg BP Diastolic 68 mmHg Heart Rate 97 /min BMI (Body Mass Index) 13.6 kg/m2 Results Test Date Facility Test Result H/L Range Note Laboratory test finding 04/25/2018 [facility] Magnesium 2.1 mg/dL N 1.9-2.7 1 Phosphorus 3.2 mg/dL N 2.5-5.0 2 Vitamin D Total 25(Oh) 67.8 ng/mL High 20-50 3 Iron & Iron Binding Capacity 04/25/2018 [facility] Iron 84 g/dL N 50-212 Unsaturated Iron Binding < 343 g/dL Total Iron Binding Capacity 358 g/dL N 250-450 Transferrin 256 mg/dL N 203-362 % Iron Saturation 23 % N 15-55 CBC W/Auto 04/25/2018 [facility] White 4.8 3/UL 4.8- 10.8 Differential(!) [address] [facility] [place] [address] Count Ser [phone] Auto CNT RBC Red Blood Count 4.85 X106/UL 4.20-6.20 Hemoglobin Blood 14.9 g/dL 12.0-18.0 Hematocrit 45.1 % 35-52 MCV (Corpuscular Volume) 93.0 FL 79-97 MCH (Corpuscular Hemoglobin) 30.8 pg 27-31 MCHC (Corpuscular Hemog Conc) 33.1 g/dL 32.0-36.0 RDW 12.8 % 10.5-15.0 Platelet Count Blood Auto CNT 260 X103/UL 150-450 MPV 9.0 FL 7.4-10.4 Lymph% 17.4 % Low 20.0-45.0 [place]% 4.7 % 1.0-9.0 Neutrophil % 77.9 % 38.0-83.0 Absolute Lymphocytes 0.8 X103/UL Low 1.0-4.8 Absolute Monocytes 0.2 X103/UL 0.0-0.8 Absolute Neutrophils 3.7 X103/UL 1.5-7.7 CMP(!) 04/25/2018 [facility] Sodium(!) 136 mEq/L 134- 149 [address] [employer] [facility] [place] [address] [phone] Potassium(!) 4.0 mEq/L 3.6-5.5 Chloride Serum/Plasma(!) 101 mEq/L 94-112 Carbon Dioxide Ser/Plasm(!) 23 mEq/L 21-33 BUN - Urea Nitrogen(!) 11 mg/dL 6-24 Calcium Ser/Plasma Mass/Vol(!) 9.5 mg/dL 8.6-10.2 Creatinine Serum Mass/Vol(!) 0.5 mg/dL 0.5-1.4 Glucose Serum(!) 71 mg/dL 70-105 BUN/Creatinine Ratio(!) 22 RATIO 8.0-36 Albumin Serum/Plasma(!) 4.6 g/dL 3.5-5.2 Alkaline Phosphatase(!) 60 U/L 39-117 Bilirubin Total Mass/Vol 0.7 mg/dL 0.2-1.3 Ast - Sgot 21 U/L 5-34 Alt - SGPT 11 U/L 10-40 Protein Total 6.8 g/dL 6.2-8.1 Laboratory test finding 04/25/2018 [facility] Inr(!) 0.9 [address] [place] [address] [phone] C-Reative Protein <0.5 <5.0 Ferritin Ser/Plas Mass/Vol(!) 42.9 ng/dL 24-250 Laboratory test 03/29/2018 [facility] Breath Test Sbbo POSITIVE High finding [address] [facility] ([facility] [place] [address] [phone] Laboratory test 12/30/2017 [facility] [place] SEE RESULT 4 finding Interface Order BELOW Xray 12/29/2017 [facility] [place], Abd & Pelvis <pending> W/ Contrast Xray 12/29/2017 [facility] US Pelvic <pending> Xray 12/29/2017 [facility] US, Gallbladder <pending> (23545) CBC W/Auto 12/29/2017 [facility] White Blood <pending> Differential(!) Count Ser Auto CNT RBC Red Blood Count <pending> Hemoglobin Blood <pending> Hematocrit <pending> MCV (Corpuscular Volume) <pending> MCH (Corpuscular Hemoglobin) <pending> MCHC (Corpuscular Hemog Conc) <pending> RDW <pending> Platelet Count Blood Auto CNT <pending> MPV <pending> Lymph% <pending> [place]% <pending> Neutrophil % <pending> Absolute Lymphocytes <pending> Absolute Monocytes <pending> Absolute Neutrophils <pending> Laboratory test 12/29/2017 [facility] Lipase Ser/Plas (!) <pending> finding C-Reative Protein <pending> CMP(!) 12/29/2017 [facility] Sodium(!) <pending> Potassium(!) <pending> Chloride Serum/Plasma(!) <pending> Carbon Dioxide Ser/Plasm(!) <pending> BUN - Urea Nitrogen(!) <pending> Calcium Ser/Plasma Mass/Vol(!) <pending> Creatinine Serum Mass/Vol(!) <pending> Glucose Serum(!) <pending> BUN/Creatinine Ratio(!) <pending> Albumin Serum/Plasma(!) <pending> Alkaline Phosphatase(!) <pending> Bilirubin Total Mass/Vol(!) <pending> Ast - Sgot <pending> Alt - SGPT <pending> Protein Total <pending> Laboratory test 12/29/2017 [facility] Lactic Acid <pending> finding Ser/Plas Mass/Vol Ua Microscopic(!) 12/29/2017 [facility] Ua WBC <pending> Ua RBC <pending> Ua Epithelial Cells <pending> Ua Crystals <pending> Ua Bacteria <pending> Ua Mucous <pending> Ua Amorphous <pending> Ua Yeast <pending> Ua Casts <pending> CMP(!) 12/28/2017 [facility] Sodium(!) <pending> Potassium(!) <pending> Chloride Serum/Plasma(!) <pending> Carbon Dioxide Ser/Plasm(!) <pending> BUN - Urea Nitrogen(!) <pending> Calcium Ser/Plasma Mass/Vol(!) <pending> Creatinine Serum Mass/Vol(!) <pending> Glucose Serum(!) <pending> BUN/Creatinine Ratio(!) <pending> Albumin Serum/Plasma(!) <pending> Alkaline Phosphatase(!) <pending> Bilirubin Total Mass/Vol(!) <pending> Ast - Sgot <pending> Alt - SGPT <pending> Protein Total <pending> Lipid Panel(!) 12/28/2017 [facility] Cholesterol Total <pending> Mass/Vol(!) HDL Cholesterol Mol/Vol <pending> 30-85 Triglycerides Ser/Plas(!) <pending> LDL Cholesterol Mass/Vol(!) <pending> Thyroid Panel 12/28/2017 [facility] T4 Free Thyroxine <pending> Mass/Vol(!) T3 Uptake <pending> T4 Total Thyroxine Mass/Vol <pending> Amylase & Lipase 12/28/2017 [facility] Amylase(!) <pending> Lipase Ser/Plas (!) <pending> Laboratory test 12/28/2017 [facility] Ferritin Ser/Plas <pending> finding Mass/Vol(!) Vitamin B12 Ser Mass/Vol <pending> TSH Thyroid Stim Hormone(!) <pending> CBC W/Auto 12/28/2017 [facility] White Blood <pending> Differential(!) Count Ser Auto CNT RBC Red Blood Count <pending> Hemoglobin Blood <pending> Hematocrit <pending> MCV (Corpuscular Volume) <pending> MCH (Corpuscular Hemoglobin) <pending> MCHC (Corpuscular Hemog Conc) <pending> RDW <pending> Platelet Count Blood Auto CNT <pending> MPV <pending> Lymph% <pending> [place]% <pending> Neutrophil % <pending> Absolute Lymphocytes <pending> Absolute Monocytes <pending> Absolute Neutrophils <pending> 1 [id number] 2 [id number] 3 [id number] 4 SEE RESULT BELOW Name: MELA MIX : [address]: Khalida Christensen MD Acct: [id number] Unit: [id number] AGE: 47 Location: [place] [address]- Re12/30/17 SEX: F Status: ADM IN SPEC: [id number] SOMMER: 12/30/17-[address]: Viviana Daen MD REQ: [id number] RECD: 12/30/17 STATUS: JOE BLEDSOE DR: Alexandra Uriostegui DO _ ORDERED: LEVEL 4/3 FINAL DIAGNOSIS 1. Small bowel, duodenum, biopsy: -- Small bowel mucosa with normal villous architecture and no significant pathologic abnormality. 2. Stomach, biopsies: -- Gastric antral and fundic gland mucosa with no significant pathologic abnormality. -- No active gastritis or Helicobacter pylori-like organisms on H E microscopy. 3. Distal esophagus, biopsies: -- Gastroesophageal transition zone mucosa with no significant pathologic abnormality. -- No evidence of reflux esophagitis identified. -- No dysplasia identified. CLINICAL HISTORY Weight loss, abdominal pain PRE-OPERATIVE DIAGNOSIS Rule out H. Pylori POST-OPERATIVE DIAGNOSIS EGD: esophagus ? distal 5 cm of esophagus with circumferential erythema without ulceration or overt inflammation, gastroesophageal junction at 37, normal z line; gastric ? hiatal hernia at 40 cm, pale featureless gastric mucosa; duodenum ? scattered linear erythema - biopsy CONTINUED ON NEXT PAGE DEPARTMENT OF PATHOLOGY, [address] [place] [address] Ramírez Pires M.D. Director [facility] # [id number] RUN DATE: 01/02/18 [facility] LAB LIVE PAGE 2 Patient: MELA MIX [id number] (Continued) GROSS DESCRIPTION (Continued) GROSS DESCRIPTION 1. The specimen is received in formalin labeled, Duodenal Biopsies, and consists of a 0.9 x 0.5 x 0.1 cm aggregate of ely speckled red irregular soft tissue fragments which is submitted entirely in one cassette. 2. The specimen is received in formalin labeled, Gastric Biopsies, and consists of a 0.6 x 0.5 x 0.1 cm aggregate of ely-pink irregular soft tissue fragments which is submitted entirely in one cassette. 3. The specimen is received in formalin labeled, Distal Esophagus Biopsies , and consists of a 0.5 x 0.4 x 0.1 cm aggregate of ely speckled red irregular soft tissue fragments which is submitted entirely in one cassette. Signed by and Reported on: Ramírez Pires MD 1656 END OF REPORT DEPARTMENT OF PATHOLOGY, [address] [place] [address] Ramírez Pires M.D. Director [facility] # [id number] SEE RESULT BELOW Name: MELA MIX : [address]: Salome Mansfield MD Acct: [id number] Unit: [id number] AGE: 47 Location: [place] [address] Re12/30/17 SEX: F Status: ADM IN SPEC: [id number] SOMMER: 12/30/17-[address]: Viviana Dean MD REQ: [id number] RECD: 12/30/17 STATUS: JOE BLEDSOE DR: Alexandra Uriostegui DO _ ORDERED: LEVEL 4/3, IMMUNO-FIRST An H. pylori immunohistochemical stain, with appropriately reacting controls , was performed on sections cut from specimen 2 and is negative for Helicobacter organisms. Addendum Signed (signature on file) Lise Emmanuel MD 1025 FINAL DIAGNOSIS 1. Small bowel, duodenum, biopsy: -- Small bowel mucosa with normal villous architecture and no significant pathologic abnormality. 2. Stomach, biopsies: -- Gastric antral and fundic gland mucosa with no significant pathologic abnormality. -- No active gastritis or Helicobacter pylori-like organisms on H E microscopy. 3. Distal esophagus, biopsies: -- Gastroesophageal transition zone mucosa with no significant pathologic abnormality. -- No evidence of reflux esophagitis identified. -- No dysplasia identified. CLINICAL HISTORY Weight loss, abdominal pain CONTINUED ON NEXT PAGE DEPARTMENT OF PATHOLOGY, [address] [place] [address] Ramírez Pires M.D. Director [facility] # [id number] RUN DATE: 01/03/18 [facility] LAB LIVE PAGE 2 Patient: MELA MIX [id number] (Continued) PRE-OPERATIVE DIAGNOSIS (Continued) PRE-OPERATIVE DIAGNOSIS Rule out H. Pylori POST-OPERATIVE DIAGNOSIS EGD: esophagus ? distal 5 cm of esophagus with circumferential erythema without ulceration or overt inflammation, gastroesophageal junction at 37, normal z line; gastric ? hiatal hernia at 40 cm, pale featureless gastric mucosa; duodenum ? scattered linear erythema - biopsy GROSS DESCRIPTION 1. The specimen is received in formalin labeled, Duodenal Biopsies, and consists of a 0.9 x 0.5 x 0.1 cm aggregate of ely speckled red irregular soft tissue fragments which is submitted entirely in one cassette. 2. The specimen is received in formalin labeled, Gastric Biopsies, and consists of a 0.6 x 0.5 x 0.1 cm aggregate of ely-pink irregular soft tissue fragments which is submitted entirely in one cassette. 3. The specimen is received in formalin labeled, Distal Esophagus Biopsies , and consists of a 0.5 x 0.4 x 0.1 cm aggregate of ely speckled red irregular soft tissue fragments which is submitted entirely in one cassette. Signed by and Reported on: Ramírez Pires MD 1656 END OF REPORT DEPARTMENT OF PATHOLOGY, [address] [place] [address] Ramírez Pires M.D. Director [facility] # [id number] Procedures Date Code Description Status 03/29/2018 33034 Breath Hydrogen Completed 02/14/2018 56930 Moderate Sedation Services; Same Phys Each Additional 15 Completed Mins 02/14/2018 64329 Moderate Sedation Services; Same Phys Each Additional 15 Completed Mins 02/14/2018 82309 Moderate Sedation Services; Same Phys Intl 15 Mins; PT >=5 Completed Years 02/14/2018 72924 Colonscopy+Biopsy Completed 12/30/2017 68038 Moderate Sedation Services; Same Phys Intl 15 Mins; PT >=5 Completed Years 12/30/2017 17444 EGD+Biopsy Single Or Multiple Completed Encounters Type Date Location Provider Dx Diagnosis Office Visit 03/14/2018 [facility]iana R63.4 Abnormal weight 3:15p [facility] Shae Linda MD loss K31.84 Gastroparesis R14.0 Abdominal distension (gaseous) R10.31 Right lower quadrant pain K59.9 Functional intestinal disorder, unspecified Office Visit 01/10/2018 [facility] Michelle R10.31 Right lower 2:30p [facility] Linda MD quadrant pain K31.84 Gastroparesis R53.82 Chronic fatigue, unspecified R10.84 Generalized abdominal pain R53.1 Weakness R63.4 Abnormal weight loss Plan of Treatment Future Appointment(s):05/09/2018 10:00 am - Laboratory at [facility]
--- OUTSIDE RECORDS SUMMARY | 2018-04-27 18:45 | XMS REPORT | Continuity of Care Document ---
:1970 External Reference #:[id number] Author Name Viviana Linda MD Address [address] [facility] [place] [address] Care Team Providers Name Role Phone Niharika Cortés MD Primary Care Physician Unavailable Payers Type Date Identification Numbers Payment Provider Subscriber Policy Number: [id number] [employer] [place] PayID: [id number] [address] [address] [place] [address] Expires: 2018 Policy Number: [id number] [facility] [place] [employer] PayID: [id number] [address] [place] [address] Advance Directives Description No Information Available Problems [...] White 4.8 3/UL 4.8- 10.8 Differential(!) [address] [facility] [place] [address] Count Ser [phone] Auto CNT RBC Red Blood Count 4.85 X106/UL 4.20-6.20 Hemoglobin Blood 14.9 g/dL 12.0-18.0 Hematocrit 45.1 % 35-52 MCV (Corpuscular Volume) 93.0 FL 79-97 MCH (Corpuscular Hemoglobin) 30.8 pg 27-31 MCHC (Corpuscular Hemog Conc) 33.1 g/dL 32.0-36.0 RDW 12.8 % 10.5-15.0 Platelet Count Blood Auto CNT 260 X103/UL 150-450 MPV 9.0 FL 7.4-10.4 Lymph% 17.4 % Low 20.0-45.0 [place]% 4.7 % 1.0-9.0 Neutrophil % 77.9 % 38.0-83.0 Absolute Lymphocytes 0.8 X103/UL Low 1.0-4.8 Absolute Monocytes 0.2 X103/UL 0.0-0.8 Absolute Neutrophils 3.7 X103/UL 1.5-7.7 CMP(!) 04/25/2018 [facility] Sodium(!) 136 mEq/L 134- [address] [employer] [facility] [place] [address] [phone] Potassium(!) 4.0 mEq/L 3.6-5.5 Chloride Serum/Plasma(!) 101 [...] finding 04/25/2018 [facility] Inr(!) 0.9 [address] [place] [address] [phone] C-Reative Protein <0.5 <5.0 Ferritin Ser/Plas Mass/Vol(!) 42.9 ng/dL 24-250 Laboratory test 03/29/2018 [facility] Breath Test Sbbo POSITIVE High finding [address] [facility] ([place] [place] [address] [phone] Laboratory test 12/30/2017 [facility] Surgical SEE RESULT 4 finding Interface Order BELOW Xray 12/29/2017 [facility] Radiology CT, Abd & Pelvis <pending> W/ Contrast Xray 12/29/2017 [facility] [place] Radiology US Pelvic <pending> Xray 12/29/2017 [facility] [place] Radiology US, Gallbladder <pending> (61023) CBC W/Auto 12/29/2017 [facility] White Blood <pending> Differential(!) Count Ser Auto CNT RBC Red Blood Count <pending> Hemoglobin Blood <pending> Hematocrit <pending> MCV (Corpuscular Volume) <pending> MCH (Corpuscular Hemoglobin) <pending> MCHC (Corpuscular Hemog Conc) <pending> RDW <pending> Platelet Count Blood Auto CNT <pending> MPV <pending> Lymph% <pending> [place]% <pending> Neutrophil % <pending> Absolute Lymphocytes <pending> [...] Auto CNT <pending> MPV <pending> Lymph% <pending> [place]% <pending> Neutrophil % <pending> Absolute Lymphocytes <pending> Absolute Monocytes <pending> Absolute Neutrophils <pending> 1 [id number] 2 [id number] 3 [id number] 4 SEE RESULT BELOW Name: MELA MIX : [address]: Khalida Christensen MD Acct: [id number] Unit: [id number] AGE: 47 Location: [place] [address]- Re12/30/17 SEX: F Status: ADM IN SPEC: [id number] SOMMER: 12/30/17-[address]: Viviana Dean MD REQ: [id number] RECD: 12/30/17 STATUS: JOE BLEDSOE DR: Alexandra [...] CONTINUED ON NEXT PAGE DEPARTMENT OF PATHOLOGY, [address] [place] [address] Ramírez Pires M.D. Director [facility] # [id number] RUN DATE: 01/02/18 [facility] LAB LIVE PAGE 2 Patient: MELA MIX [id number] (Continued) GROSS DESCRIPTION (Continued) GROSS DESCRIPTION 1. [...] 1656 END OF REPORT DEPARTMENT OF PATHOLOGY, [address] [place] [address] Ramírez Pires M.D. Director [facility] # [id number] SEE RESULT BELOW Name: MELA MIX : [address]: Salome Mansfield MD Acct: [id number] Unit: [id number] AGE: 47 Location: [place] [address] Re12/30/17 SEX: F Status: ADM IN SPEC: [id number] SOMMER: 12/30/17-[address]: Viviana Dean MD REQ: [id number] RECD: 12/30/17 STATUS: JOE BLEDSOE DR: Alexandra [...] CONTINUED ON NEXT PAGE DEPARTMENT OF PATHOLOGY, [address] [place] [address] Ramírez Pires M.D. Director [facility] # [id number] RUN DATE: 01/03/18 [facility] LAB LIVE PAGE 2 Patient: MELA MIX [id number] (Continued) PRE-OPERATIVE DIAGNOSIS (Continued) PRE-OPERATIVE DIAGNOSIS Rule [...] 1656 END OF REPORT DEPARTMENT OF PATHOLOGY, [address] [place] [address] Ramírez Pires M.D. Director [facility] # [id number] Procedures Date Code Description Status 03/29/2018 21506 Breath Hydrogen Completed 02/14/2018 75050 Moderate Sedation Services; Same Phys Each Additional 15 Completed Mins 02/14/2018 74669 Moderate Sedation Services; Same Phys Each Additional 15 Completed Mins 02/14/2018 08002 Moderate Sedation Services; Same Phys Intl 15 Mins; PT >=5 Completed Years 02/14/2018 83606 Colonscopy+Biopsy Completed 12/30/2017 12681 Moderate Sedation Services; Same Phys Intl 15 Mins; PT >=5 Completed Years 12/30/2017 99306 EGD+Biopsy Single Or Multiple Completed Encounters Type [...] 10:00 am - Laboratory at [facility]
[2018-04-27 21:04] LABS: ABS Basophils 0 10^3/ul (0-0.2); ABS Eosinophils 0 10^3/ul (0-0.6); ABS Lymphocytes 1.2 10^3/ul (1.0-4.8); ABS Monocytes 0.3 10^3/ul (0-0.8); ABS Neutrophils 2.4 10^3/ul (1.5-7.7); ABS Nucleated RBC 0 10^3/ul; Eosinophil % 0.5 %; Hematocrit 42 % (35-47); Hemoglobin 14.4 g/dl (12.0-16.0); Lymphocyte % 29.8 %; Mean Corpuscular HGB Conc 34 g/dl (31-36); Mean Corpuscular Hemoglobin 31 pg (27-31); Mean Corpuscular Volume 91 fL (80-97); Mean Platelet Volume 9.7 fL (7.4-10.4); Nucleated Red Blood Cells % 0.1; Platelet Count 242 10^3/ul (150-450); Red Blood Count 4.64 10^6/ul (4.00-5.40); Red Cell Distribution Width 13 % (10.5-15)
--- NOTE | 2018-04-27 21:15 | ED ---
GI/ HPI - HPI Summary HPI Summary: This patient is a 48 year old F presenting to [facility] for failure to thrive. The patient saw her PCP for this but was told she cannot find the source. She states she is dx with SIBO and states she was on abx for this with improvement. The patient has trouble eating as she feels full quickly and digests slowly. The patient rates the pain 5/10 in severity. The patient states she is losing weight rapidly, fatigue, and reports arthralgia. Patient reports constipation. Patient denies vomiting and diarrhea. Her PCP suggested nasogastric tube. Hx of gastroparesis. She states she has sensitivities of gluten, dairy, and soy. - History of Current Complaint Chief Complaint: EDGeneral Time Seen by Provider: 04/27/18 20:26 Stated Complaint: GENERAL Hx Obtained From: Patient Onset/Duration: Still Present Timing: Constant Severity: Moderate Current Severity: Moderate Pain Intensity: 5 Location of Pain: Diffuse Associated Signs and Symptoms: Positive: Negative - failure to thrive and constipation, Other: - vomiting and diarrhea. - Additional Pertinent History Primary Care Physician: ABHIJEET - Allergy/Home Medications Allergies/Adverse Reactions: Allergies Allergy/AdvReac Type Severity Reaction Status Date / Time Iodinated Contrast- Oral and Allergy Unknown Verified 12/29/17 17:19 IV Dye Reaction Details Home Medications: Home Medications Domperidone 10 mg PO TID 04/27/18 [History Confirmed 04/27/18] busPIRone TAB* [Buspar TAB*] 7.5 mg PO TID 04/27/18 [History Confirmed 04/27/18] PMH/Surg Hx/FS Hx/Imm Hx Endocrine/Hematology History: Reports: Other Endocrine/Hematological Disorders - CFS Denies: Hx Diabetes, Hx Thyroid Disease Cardiovascular History: Denies: Hx Hypertension Respiratory History: Denies: Hx Asthma, Hx Chronic Obstructive Pulmonary Disease (COPD) GI History: Reports: Other GI Disorders - Gastroparesis Denies: Hx Ulcer Musculoskeletal History: Reports: Hx Fibromyalgia Sensory History: Reports: Hx Contacts or Glasses Denies: Hx Hearing Aid Opthamlomology History: Reports: Hx Contacts or Glasses - Cancer History Cancer Type, Location and Year: None reported - Surgical History Surgery Procedure, Year, and Place: None reported Infectious Disease History: No Infectious Disease History: Denies: Hx Clostridium Difficile, Hx Hepatitis, Hx Human Immunodeficiency Virus (HIV), Hx of Known/Suspected MRSA, Hx Shingles, Hx Tuberculosis, Hx Known/ Suspected VRE, Hx Known/Suspected VRSA, History Other Infectious Disease, Traveled Outside the [place] in Last 30 Days - Family History Known Family History: Negative: Hypertension, Respiratory Disease, Seizure Disorder - Social History Alcohol Use: Rare Substance Use Type: Reports: None Smoking Status (MU): Never Smoked Tobacco Review of Systems Positive: Fatigue, Other - failure to thrive . Negative: Fever, Chills Negative: Erythema Negative: Sore Throat Negative: Chest Pain Negative: Shortness Of Breath, Cough Gastrointestinal: Other - losing weight rapidly and quick Satiation Positive: Abdominal Pain, Other - constipation. Negative: Vomiting, Diarrhea, Nausea Negative: dysuria, hematuria Positive: Arthralgia. Negative: Myalgia, Edema Negative: Rash Neurological: Negative - dizziness All Other Systems Reviewed And Are Negative: Yes Physical Exam - Summary Physical Exam Summary: Constitutional: Well-developed, Cachectic appearing, Alert. (-) Distressed Skin: Warm, Dry HENT: Dry mucus membranes lips are chapped Eyes: Conjunctiva normal Neck: Musculoskeletal ROM normal neck. (-) JVD, (-) Stridor, (-) Tracheal deviation Cardio: Rhythm regular, rate normal, Heart sounds normal; Intact distal pulses; The pedal pulses are 2+ and symmetric. Radial pulses are 2+ and symmetric. (-) Murmur Pulmonary/Chest wall: Effort normal. (-) Respiratory distress, (-) Wheezes, (-) Rales Abd: Soft, (-) epigastric tenderness, (-) Distension, (-) Guarding, (-) Rebound Musculoskeletal: (-) Edema Lymph: (-) Cervical adenopathy Neuro: Alert, Oriented x3 Psych: Mood and affect Normal Triage Information Reviewed: Yes Vital Signs On Initial Exam: Initial Vitals Temp Pulse Resp BP Pulse Ox 98.7 F 95 20 106/74 97 04/27/18 17:52 04/27/18 17:52 04/27/18 17:52 04/27/18 17:52 04/27/18 17:52 Vital Signs Reviewed: Yes Diagnostics - Vital Signs Vital Signs Temp Pulse Resp BP Pulse Ox 04/27/18 20:53 73 98 04/27/18 19:45 98.5 F 90 16 84/62 98 04/27/18 17:52 98.7 F 95 20 106/74 97 - Laboratory Lab Results: Lab Results 04/27/18 Range/Units 20:53 WBC 4.0 (3.5-10.8) 10^3/ul RBC 4.64 (4.00-5.40) 10^6/ul Hgb 14.4 (12.0-16.0) g/dl Hct 42 (35-47) % MCV 91 (80-97) fL MCH 31 (27-31) pg MCHC 34 (31-36) g/dl RDW 13 (10.5-15) % Plt Count 242 (150-450) 10^3/ul MPV 9.7 (7.4-10.4) fL Neut % (Auto) 61.2 % Lymph % (Auto) 29.8 % Gaines % (Auto) 7.6 % Eos % (Auto) 0.5 % Baso % (Auto) 0.9 % Absolute Neuts (auto) 2.4 (1.5-7.7) 10^3/ul Absolute Lymphs (auto) 1.2 (1.0-4.8) 10^3/ul Absolute Monos (auto) 0.3 (0-0.8) 10^3/ul Absolute Eos (auto) 0 (0-0.6) 10^3/ul Absolute Basos (auto) 0 (0-0.2) 10^3/ul Absolute Nucleated RBC 0 10^3/ul Nucleated RBC % 0.1 Result Diagrams: 04/27/18 20:53 04/27/18 20:53 Lab Statement: Any lab studies that have been ordered have been reviewed, and results considered in the medical decision making process. - EKG 2051 Cardiac Rate: NL EKG Rhythm: Sinus Rhythm - at 73 BPM Summary of EKG Findings: No STEMI GIGU Course/Dx - Course Assessment/Plan: This patient is a 48 year old F presenting to [facility] for failure to thrive. The patient saw her PCP for this but was told she cannot find the source. She states she is dx with SIBO and states she was on abx for this with improvement. The patient has trouble eating as she feels full quickly and digests slowly. The patient rates the pain 5/10 in severity. The patient states she is losing weight rapidly, fatigue, and reports arthralgia. Patient reports constipation. Patient denies vomiting and diarrhea. Her PCP suggested nasogastric tube. Hx of gastroparesis. She states she has sensitivities of gluten, dairy, and soy. The patient did have a blood glucose of 59 in the ED. We discussed patient care with Dr Combs and she has accepted the patient for admission. Patient will be admitted. The patient is agreeable with this plan. - Diagnoses Provider Diagnoses: Anoxemia, Malnutrition, Hypoglycemia - Physician Notifications Discussed Care Of Patient With: Salome Combs Time Discussed With Above Provider: 21:56 Instructed by Provider To: Admit As Inpatient Discharge - Sign-Out/Discharge Documenting (check all that apply): Patient Departure - admitted - Discharge Plan Condition: Fair Disposition: ADMITTED TO [facility] Referrals: Niharika Cortés MD [Primary Care Provider] - - Attestation Statements Document Initiated by Scribe: Yes Documenting Scribe: Robbi Mayes Provider For Whom Scribe is Documenting (Include Credential): Nitin Cunningham MD Scribe Attestation: IRobbi , scribed for Nitin Cunningham MD on 04/27/18 at 2562. Status of Scribe Document: Ready
[2018-04-27 21:20] LABS: ALT 12 U/L (7-52); AST 21 U/L (13-39); Albumin 4.4 g/dL (3.2-5.2); Albumin/Globulin Ratio 1.8 (1-3); Alkaline Phosphatase 51 U/L (34-104); Anion Gap 12 mmol/L (2-11); BUN/Creatinine Ratio 12.5 (8-20); Blood Urea Nitrogen 8 mg/dL (6-24); C Reactive Protein < 1.00 mg/L (<8.01); CO2 Carbon Dioxide 25 mmol/L (22-32); Calcium 9.4 mg/dL (8.6-10.3); Chloride 98 mmol/L (101-111); EGFR African American 119.8 (>60); Globulin 2.5 g/dL (2-4); Glucose 59 mg/dL (70-100); Potassium 3.7 mmol/L (3.5-5.0); Sodium 135 mmol/L (135-145); Total Protein 6.9 g/dL (6.4-8.9)
[2018-04-27] MEDS: D5W 1/2 NS KCl 20 Meq 1000 ML* 1,000 ML IV SCH (21:51)
--- NOTE | 2018-04-28 00:10 | HP ---
CC: Dr. Cortés; Dr. Linda * HISTORY AND PHYSICAL: DATE OF ADMISSION: 04/27/18 TIME OF EVALUATION: 10:10 p.m. PRIMARY CARE PROVIDER: Dr. Cortés. FACE CLEANER: Dr. Linda. CHIEF COMPLAINT: "I was sent here for a feeding tube." HISTORY OF PRESENT ILLNESS: Ms. Mix is a 48-year-old lady with a past medical history of depression, fibromyalgia, chronic fatigue, gastroparesis, who was sent to the emergency room by her primary care provider due to malnutrition, requiring other forms of nutrition. The information is obtained from the patient, her medical record and also information from conversation with Dr. Cortés. The patient states that she was in her usual state of health in July 2017. She was on a trip to [place]. She developed a UTI requiring antibiotic treatment, and she noticed progressive postprandial fullness that progressed to the point that she could have just a few bites after that. The patient states that her weight before this all happened was 100 pounds. She says that she had some issues before when she would eat. She would eat small portions, try to eat more frequently, but she was able to maintain her weight. Since the UTI in July, she had progressive difficulty and her weight dropped to the 70s. She was admitted to [facility] in February, and at that point, the impression was that she had an unspecified eating disorder causing early satiety and a gastric emptying study done before had shown gastroparesis. The patient was followed by Dr. Cortés and Dr. Linda as an outpatient, and she had a positive methane breath test compatible with SIBO (small intestine bacterial overgrowth). The impression is that the patient likely has also infectious dysmotility also associated with her prior UTI. As an outpatient, she had improvement of her symptoms when she was taking Xifaxan, and later on, a combination of Xifaxan and neomycin. The patient states that her bloating and discomfort were less intense and she had actually gained some weight and was up to 90 pounds. The patient states that after the antibiotics were completed, her symptoms returned. She was treated with Augmentin and completed the course a week ago, but the patient said that she did not experience significant improvement as she did with Xifaxan and neomycin. The patient was seen by Dr. Linda and tentative plan was for NG tube placement to see if she can tolerate tube feeds and maybe even consideration for PEG placement. The patient has an appointment at the [facility] in May as [facility] does not have a SIBO specialist. The patient states that she is able to take her medications and eat small bites , but other than that has not really been able to eat any full meal. Her weight is down to 78 pounds, reason why her PCP sent her to the emergency room to expedite her workup and treatment. She denies chest pain, palpitation, shortness of breath, nausea, vomiting, or diarrhea. PAST MEDICAL HISTORY: 1. Postinfectious dysmotility. 2. Mild gastroparesis. 3. SIBO (small intestine bacterial overgrowth). 4. Protein-calorie malnutrition. 5. Depression. 6. Fibromyalgia. 7. Chronic fatigue. MEDICATION LIST: 1. BuSpar 7.5 mg p.o. t.i.d. 2. Domperidone 10 mg p.o. t.i.d. 3. Multivitamin half a tablet p.o. daily. 4. MiraLAX 17 g p.o. daily. ALLERGIES: The patient had a reaction to IV DYE. FAMILY HISTORY: Mother has severe arthritis. Father had renal cell carcinoma. SOCIAL HISTORY: The patient denies history of tobacco, alcohol, or drug use. Surrogate decision maker is her boyfriend, Vincenzo Bradley, phone number is [phone]. REVIEW OF SYSTEMS: A 14-point review of systems was performed and all the pertinent negative and positive findings are in the HPI. PHYSICAL EXAMINATION GENERAL: The patient is a pleasant, thin, middle age lady, lying in the ED stretcher, in no acute distress. VITAL SIGNS: Temperature 98.5, heart rate is 83, respiratory rate is 16, oxygen saturation is 95% on room air, blood pressure is 102/60. HEENT: Pupils are equal. Dry mucous membranes. CHEST: Breath sounds present bilaterally with no added sounds. CARDIOVASCULAR: Normal S1, S2. Regular rate and rhythm. ABDOMEN: Excavated, soft, no significant tenderness. Bowel sounds are present. EXTREMITIES: No edema. NEUROLOGIC: She is alert and oriented x3. Able to move all 4 extremities. DIAGNOSTIC STUDIES/LAB DATA: The patient had a CBC that showed a WBC of 4, hemoglobin of 14.4, hematocrit of 42, platelets of 242 with 61% neutrophils. Chemistry showed sodium of 135, potassium 3.7, chloride 98, bicarb of 25, BUN of 8, creatinine of 0.6. Her glucose was 59, lactic acid was 0.7, calcium was 9.4. LFTs are normal. Albumin was 4.4. EKG done 04/27/18 at 8:52 p.m. showed sinus rhythm at 73 beats per minute with no ST-T changes. No significant changes when compared to her prior EKG from 10/26, although all her leads looked pretty similar. ASSESSMENT AND PLAN: Ms. Mix is a 48-year-old lady with past medical history as stated above that was sent to the emergency room due to failure to thrive. 1. Protein-calorie malnutrition. The patient's BMI is 13. She has had extensive workup as outpatient and the impression so far is that she has postinfectious dysmotility and small intestine bacterial overgrowth. She does have an appointment at the [facility] in May, but in the meantime, she continues to lose weight. She will be admitted to the medical floor and the plan is to place an NG tube to see if she would tolerate tube feeds. We offered to place an NG tube in the emergency room and the patient declines it as she would prefer to have it done under sedation with endoscopy. Gastroenterology will be called in the morning to discuss the plan. My impression is that if she tolerates tube feeds via NG tube, then she would have a PEG placed to at least make sure she is getting enough nutrition until she gets further workup done at the [facility]. I believe TPN is not indicated at this time as we would prefer to use her GI tract if she is able to tolerate tube feeds. The patient has many dietary intolerances, and she brought her own tube feeds to the hospital. She has purchased Liquid Hope and would like to talk to the dietitian about it. I am going to continue her domperidone and further plans will depend on the GI evaluation. The patient's glucose is borderline low and she appears to be dehydrated, so she will be kept on IV infusion of D5 1/2 NS. 2. Depression. We will continue BuSpar. 3. DVT prophylaxis: The patient has a score of 1 on the DVT Prophylaxis Risk Assessment Guide, and she is will be started on SCDs. 4. Code status is full. TIME SPENT: Approximately 50 minutes was spent with patient interview, medical records review, physical examination to complete this admission, more than half of this time was spent [id number] with the patient and coordination of care. [id number]/[facility] #: [id number] JULIA
[2018-04-28 01:07] LABS: Urine Appearance Clear; Urine Bacteria Absent (Absent); Urine Bilirubin Negative (Negative); Urine Blood 1+ (Negative); Urine Color Straw; Urine Glucose Negative (Negative); Urine Ketones 2+ (Negative); Urine Nitrite Negative (Negative); Urine Protein Negative (Negative); Urine Red Blood Cell Trace(0-2/hpf) (Absent); Urine Specific Gravity 1.006 (1.010-1.030); Urine Urobilinogen Negative (Negative); Urine White Blood Cell Trace(0-5/hpf) (Absent)
[2018-04-28] MEDS: D5W 1/2 NS KCl 20 Meq 1000 ML* 1,000 ML IV SCH ×3 (03:55→18:04)
[2018-04-28] MEDS: Multivitamins/Minerals TAB PO SCH (09:16)
[2018-04-28] MEDS: DOMPERIDONE 10 MG PO SCH ×3 (09:16→21:22)
[2018-04-28] MEDS: busPIRone TAB* 5 MG PO SCH ×3 (09:16→21:22)
[2018-04-28] MEDS: Polyethylene Glycol 3350* 17 GM PACKET PO SCH (09:16)
[2018-04-28] MEDS ORDERED: Lidocaine 2% JELLY* 6 ML JELLY TOPICAL ONE (14:30)
[2018-04-28] MEDS ORDERED: Benzocaine/Butamben/Tetracain* SPRAY TOPICAL ONE (14:33)
--- NOTE | 2018-04-28 19:19 | PN ---
Subjective Date of Service: 04/28/18 Interval History: Resting in bed on assessment. Patient has been NPO awaiting NG tube under sedation, but patient was agreeable to nursing placing NG tube and it was successfully placed Reports she occasionally feels dizzy when changing positions. Denies cp, sob, palpitations, nausea, vomiting, diarrhea. Reports she is symptoms free if she refrains from eating Objective Active Medications: Acetaminophen (Tylenol Tab*) 650 mg PO Q6H PRN PRN Reason: pain/fever Buspirone HCl (Buspar Tab*) 7.5 mg PO TID [facility] Last Admin: 04/28/18 14:44 Dose: Not Given Potassium Chloride/Dextrose (D5w 1/2 Ns Kcl 20 Meq 1000 Ml*) 1,000 mls @ 150 mls/hr IV PER RATE [facility] Last Admin: 04/28/18 18:04 Dose: 150 mls/hr Multivitamins/Minerals (Theragran/Minerals Tab*) 0.5 tab PO DAILY [facility] Last Admin: 04/28/18 09:16 Dose: Not Given Pto: Domperidone 10 (Mg) 10 mg PO TID [facility] Last Admin: 04/28/18 14:44 Dose: Not Given Polyethylene Glycol/Electrolytes (Miralax*) 17 gm PO DAILY [facility] Last Admin: 04/28/18 09:16 Dose: Not Given Vital Signs - 8 hr 04/28/18 04/28/18 11:47 15:45 Temperature 97.4 F 97.9 F Pulse Rate 68 69 Respiratory 16 18 Rate Blood Pressure 89/62 116/69 (mmHg) O2 Sat by Pulse 99 99 Oximetry Oxygen Devices in Use Now: None Appearance: Chronically ill appearing Eyes: No Scleral Icterus Ears/Nose/Mouth/Throat: Clear Oropharnyx, Mucous Membranes Moist Neck: NL Appearance and Movements; NL JVP Respiratory: Symmetrical Chest Expansion and Respiratory Effort, Clear to Auscultation Cardiovascular: NL Sounds; No Murmurs; No JVD, RRR, No Edema Abdominal: NL Sounds; No Tenderness; No Distention Lymphatic: No Cervical Adenopathy Extremities: No Edema Skin: No Rash or Ulcers Neurological: Alert and Oriented x 3 Nutrition: - - NG tube placed Result Diagrams: 04/27/18 20:53 04/27/18 20:53 Additional Lab and Data: Laboratory Results - last 24 hr 01/04/27/18 04/27/18 20:53 20:53 20:53 WBC 4.0 RBC 4.64 Hgb 14.4 Hct 42 MCV 91 MCH 31 MCHC 34 RDW 13 Plt Count 242 MPV 9.7 Neut % (Auto) 61.2 Lymph % (Auto) 29.8 [place] % (Auto) 7.6 Eos % (Auto) 0.5 Baso % (Auto) 0.9 Absolute Neuts (auto) 2.4 Absolute Lymphs (auto) 1.2 Absolute Monos (auto) 0.3 Absolute Eos (auto) 0 Absolute Basos (auto) 0 Absolute Nucleated RBC 0 Nucleated RBC % 0.1 Sodium 135 Potassium 3.7 Chloride 98 L Carbon Dioxide 25 Anion Gap 12 H BUN 8 Creatinine 0.64 Est GFR ( Amer) 119.8 Est GFR (Non-Af Amer) 99.0 BUN/Creatinine Ratio 12.5 Glucose 59 L Lactic Acid 0.7 Calcium 9.4 Total Bilirubin 0.60 AST 21 ALT 12 Alkaline Phosphatase 51 C-Reactive Protein < 1.00 Total Protein 6.9 Albumin 4.4 Globulin 2.5 Albumin/Globulin Ratio 1.8 Lipase 31 Urine Color Urine Appearance Urine pH Ur Specific [place] Urine Protein Urine Ketones Urine Blood Urine Nitrate Urine Bilirubin Urine Urobilinogen Ur Leukocyte Esterase Urine WBC (Auto) Urine RBC (Auto) Urine Bacteria Urine Glucose 04/27/18 04/28/18 23:53 01:29 WBC RBC Hgb Hct MCV MCH MCHC RDW Plt Count MPV Neut % (Auto) Lymph % (Auto) [place] % (Auto) Eos % (Auto) Baso % (Auto) Absolute Neuts (auto) Absolute Lymphs (auto) Absolute Monos (auto) Absolute Eos (auto) Absolute Basos (auto) Absolute Nucleated RBC Nucleated RBC % Sodium Potassium Chloride Carbon Dioxide Anion Gap BUN Creatinine Est GFR ( Amer) Est GFR (Non-Af Amer) BUN/Creatinine Ratio Glucose Lactic Acid 0.6 Calcium Total Bilirubin AST ALT Alkaline Phosphatase C-Reactive Protein Total Protein Albumin Globulin Albumin/Globulin Ratio Lipase Urine Color Straw Urine Appearance Clear Urine pH 6.0 Ur Specific [place] 1.006 L Urine Protein Negative Urine Ketones 2+ A Urine Blood 1+ A Urine Nitrate Negative Urine Bilirubin Negative Urine Urobilinogen Negative Ur Leukocyte Esterase Negative Urine WBC (Auto) Trace(0-5/hpf) Urine RBC (Auto) Trace(0-2/hpf) Urine Bacteria Absent Urine Glucose Negative Assess/Plan/Problems-Billing Assessment: 48 yr old female with pmh of post infectious dysmotility, mild gastroparesis, SIBO malnutrition, Depression, fibro, chronic fatigue; presented to the ED for "tube feeding" as she has not been able to tolerated food as it causes discomfort which has led to her losing significant about of weight - Patient Problems (1) Protein calorie malnutrition Comment: - NG tube placed by nursing - Tube feeding started this evening per instructions from Noise Abatement Engineer. - Monitor patient's response to tube feed - Monitor electrolytes - At risk for refeeding syndrome (2) Depression Comment: - Cont home meds (3) DVT prophylaxis Comment: - SCDs and ambulation as tolerated (4) Full code status Comment: Attending: Usama Mandujano
[2018-04-28] MEDS ORDERED: Benzocaine/Menthol LOZ* 1 LOZENGE MT PRN (21:08)
[2018-04-28] MEDS: Acetaminophen TAB* 325 MG PO PRN (23:42)
[2018-04-29] MEDS: D5W 1/2 NS KCl 20 Meq 1000 ML* 1,000 ML IV SCH ×2 (00:45→07:42)
[2018-04-29] MEDS: Acetaminophen TAB* 325 MG PO PRN ×3 (06:00→17:52)
[2018-04-29 07:54] LABS: ALT 10 U/L (7-52); AST 18 U/L (13-39); Albumin 3.8 g/dL (3.2-5.2); Albumin/Globulin Ratio 1.5 (1-3); Alkaline Phosphatase 49 U/L (34-104); Anion Gap 6 mmol/L (2-11); CO2 Carbon Dioxide 27 mmol/L (22-32); Calcium 9.2 mg/dL (8.6-10.3); Chloride 94 mmol/L (101-111); EGFR African American 159.3 (>60); EGFR Non-African American 131.7 (>60); Globulin 2.5 g/dL (2-4); Glucose 151 mg/dL (70-100); Potassium 3.5 mmol/L (3.5-5.0); Sodium 127 mmol/L (135-145); Total Protein 6.3 g/dL (6.4-8.9)
[2018-04-29 07:55] LABS: Blood Urea Nitrogen < 2 mg/dL (6-24)
[2018-04-29] MEDS: Multivitamins/Minerals TAB PO SCH (09:52)
[2018-04-29] MEDS: busPIRone TAB* 5 MG PO SCH ×3 (09:53→20:30)
[2018-04-29] MEDS: DOMPERIDONE 10 MG PO SCH ×3 (09:53→20:30)
[2018-04-29] MEDS: Polyethylene Glycol 3350* 17 GM PACKET PO SCH (10:53)
--- NOTE | 2018-04-29 15:19 | PN ---
Subjective Date of Service: 04/29/18 Interval History: Ms. Mix reports that thus far she is able to tolerate her tube feedings though it is causing discomfort in her throat. She has some mild sensation of bloating but is happy with the results thus far. She denies other complaint including chest pain or SOB. Objective Active Medications: Acetaminophen (Tylenol Tab*) 650 mg PO Q6H PRN Buspirone HCl (Buspar Tab*) 7.5 mg PO TID [facility] Potassium Chloride/Dextrose (D5w 1/2 Ns Kcl 20 Meq 1000 Ml*) 1,000 mls @ 150 mls/hr IV PER RATE [facility] Multivitamins/Minerals (Theragran/Minerals Tab*) 0.5 tab PO DAILY [facility] Pto: Domperidone 10 (Mg) 10 mg PO TID [facility] Polyethylene Glycol/Electrolytes (Miralax*) 17 gm PO DAILY [facility] Throat Lozenges (Chloraseptic Leandro*) 1 leandro [place] Q3H PRN Vital Signs: Temp Pulse Resp BP Pulse Ox 98.2 F 72 18 113/70 99 04/29/18 11:02 04/29/18 11:02 04/29/18 11:02 04/29/18 11:02 04/29/18 11:02 Oxygen Devices in Use Now: None Appearance: Female lying in bed in NAD Eyes: No Scleral Icterus Ears/Nose/Mouth/Throat: Mucous Membranes Moist Neck: Trachea Midline Respiratory: Symmetrical Chest Expansion and Respiratory Effort, Clear to Auscultation Cardiovascular: NL Sounds; No Murmurs; No JVD, No Edema Abdominal: NL Sounds; No Tenderness; No Distention Extremities: No Edema Skin: No Rash or Ulcers Neurological: Alert and Oriented x 3, NL Muscle Strength and Tone Nutrition: Taking PO's - Nutrition: Malnutrition Diagnosis/Plan Malnutrition Assessment by Registered Dietitian: Malnutrition Assessment Clinical Characteristics Chronic,Severe Malnutrition Assessment: 17% wt loss x 9 mos (severe) Criteria < or = 75% of EEE x > or = 1 mo mild temporal wasting visualized on observation Malnutrition Assessment: NGT feedings began 04/28. Pt currently tolerating Interventions @ 10 mls/hr. Will follow ability to advance to goal of 40 mls/hr (Liquid Hope formula). Malnutrition Assessment: Goals 1. Enteral nutrition support will be adequate to promote weight repletion and maintain hydration Result Diagrams: 04/27/18 20:53 04/29/18 07:18 Additional Lab and Data: . Microbiology and Other Data: . Assess/Plan/Problems-Billing Assessment: Ms. Mix is a 48 yr old female with pmh of post infectious dysmotility, mild gastroparesis, SIBO, malnutrition, suspected component of easting disorder, depression, fibromyalgia, chronic fatigue; presented to the ED for tube feeding as she has not been able to tolerate food as it causes discomfort which has led to her losing significant about of weight - Patient Problems (1) Severe protein-calorie malnutrition Comment: - Now s/p NG tube placement, tolerating well thus far. - Secondary to impaired food intake in the setting of unclear symptoms of early satiety and abdominal fullness. BMI 13. Was seen for same in December, but has continued to lose weight since discharge. - Has been seeing Dr Linda as an outpatient, she hopes to have patient prove tolerance of NG tube in preparation for possible PEG placement - PPN was discontinued on previous admission as patient does not have a functional/pathologic GI issue - Nutrition following, continue calorie count (2) Abdominal distress SNOMED Code(s): 042093065 Comment: - Suspect component of eating disorder with hypersensitivity and catastrophization regarding abdominal sensations based on patient's description of her discomfort which seems inconsistent and more reflective of simple digestion. Regardless, extensive work up has found no worrisome etiology other than mild gastroparesis and SIBO perhaps related to gut dysbiosis after a course of antibiotics in the past. Patient has been assured that these findings are not dangerous or life-threatening but she continues to be unable to eat due to her feeling of discomfort and fear. - Patient did not meet criteria for an eating disorder program at [facility] per at last hospitalization - Gastric emptying study with mild gastroparesis only. Mesenteric abdominal doppler with normal flow. Upper and lower endoscopy essentially normal - Thus far plan is for NG tube, possible PEG and then follow up with multiple specialists that patient has arranged at [facility] and [place] in [place] (3) Depression Comment: - Cont home meds (4) Abnormal thyroid function test Comment: - Euthyroid with non-specific Atb. - Monitor as outpatient (5) DVT prophylaxis Comment: - SCDs and ambulation as tolerated (6) Full code status Comment: Status and Disposition: Inpatient. Anticipate discharge to home when medically stable
[2018-04-30] MEDS: Acetaminophen TAB* 325 MG PO PRN ×4 (00:03→18:07)
[2018-04-30] MEDS: Polyethylene Glycol 3350* 17 GM PACKET PO SCH ×2 (08:01→17:53)
[2018-04-30] MEDS: busPIRone TAB* 5 MG PO SCH ×3 (08:35→21:06)
[2018-04-30] MEDS: DOMPERIDONE 10 MG PO SCH ×3 (08:35→21:06)
[2018-04-30] MEDS: Multivitamins/Minerals TAB PO SCH (08:36)
--- NOTE | 2018-04-30 09:04 | PN ---
Subjective Date of Service: 04/30/18 Interval History: Ms. Mix reports that she is tolerating tube feeding well thus far and is at the 40ml/hr. She reports mild gas but no bloating. She is ok with the plan to proceed with PEG placed by IR and is aware that we will be working with them tomorrow to see when and if this is possible. Objective Active Medications: Acetaminophen (Tylenol Tab*) 650 mg PO Q6H PRN Buspirone HCl (Buspar Tab*) 7.5 mg PO TID [facility] Multivitamins/Minerals (Theragran/Minerals Tab*) 0.5 tab PO DAILY [facility] Pto: Domperidone 10 (Mg) 10 mg PO TID [facility] Polyethylene Glycol/Electrolytes (Miralax*) 17 gm PO DAILY [facility] Throat Lozenges (Chloraseptic Leandro*) 1 leandro MT Q3H PRN Vital Signs: Temp Pulse Resp BP Pulse Ox 98.3 F 80 16 107/72 98 04/30/18 07:14 04/30/18 07:14 04/30/18 08:01 04/30/18 07:14 04/30/18 07:14 Oxygen Devices in Use Now: None Appearance: Female lying in bed in NAD Eyes: No Scleral Icterus Ears/Nose/Mouth/Throat: Mucous Membranes Moist Neck: Trachea Midline Respiratory: Symmetrical Chest Expansion and Respiratory Effort, Clear to Auscultation Cardiovascular: NL Sounds; No Murmurs; No JVD, No Edema Abdominal: NL Sounds; No Tenderness; No Distention Extremities: No Edema Skin: No Rash or Ulcers Neurological: Alert and Oriented x 3, NL Muscle Strength and Tone Nutrition: Taking PO's - Nutrition: Malnutrition Diagnosis/Plan Malnutrition Assessment by Registered Dietitian: Malnutrition Assessment Clinical Characteristics Chronic,Severe Malnutrition Assessment: 17% wt loss x 9 mos (severe) Criteria < or = 75% of EEE x > or = 1 mo mild temporal wasting visualized on observation Malnutrition Assessment: NGT feedings began 04/28. Pt currently tolerating Interventions @ 10 mls/hr. Will follow ability to advance to goal of 40 mls/hr (Liquid Hope formula). Malnutrition Assessment: Goals 1. Enteral nutrition support will be adequate to promote weight repletion and maintain hydration Result Diagrams: 04/27/18 20:53 04/29/18 07:18 Additional Lab and Data: . Microbiology and Other Data: . Assess/Plan/Problems-Billing Assessment: Ms. 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 Since she switched over to an alternate formula, the goal rate is now 50ml/hr. - Secondary to impaired food intake in the setting of unclear symptoms of early satiety and abdominal fullness. BMI 13. - Has been seeing Dr Linda as an outpatient, she hopes to have patient prove tolerance of NG tube in preparation for possible PEG placement - PPN was discontinued on previous admission as patient does not have a functional/pathologic GI issue (2) Abdominal distress SNOMED Code(s): [id number] Comment: - Suspect component of eating disorder with hypersensitivity and catastrophization regarding abdominal sensations. Regardless, extensive work up has found no worrisome etiology other than mild gastroparesis and SIBO perhaps related to gut dysbiosis after a course of antibiotics in the past. Patient has been assured that these findings are not dangerous or life- threatening but she continues to be unable to eat due to her feeling of discomfort and fear. Discussed mind/body connection with chronic pain at length , patient appreciates the conversation but only interested in finding strictly organic cause of distress. - Patient did not meet criteria for an eating disorder program at [facility] per at last hospitalization - Gastric emptying study with mild gastroparesis only. Mesenteric abdominal doppler with normal flow. Upper and lower endoscopy essentially normal - Thus far plan is for NG tube, possible PEG and then follow up with multiple specialists that patient has arranged at [facility] and [facility] in [place]. Plan to call IR in morning to see when or if this can be done. (3) Depression Comment: - Cont home meds (4) DVT prophylaxis Comment: - SCDs and ambulation as tolerated (5) Full code status Comment: Status and Disposition: Inpatient. Anticipate discharge to home when medically stable
[2018-05-01] MEDS: Acetaminophen TAB* 325 MG PO PRN ×3 (00:02→18:26)
[2018-05-01] MEDS: Multivitamins/Minerals TAB PO SCH (09:12)
[2018-05-01] MEDS: Polyethylene Glycol 3350* 17 GM PACKET PO SCH ×2 (09:12→18:26)
[2018-05-01] MEDS: DOMPERIDONE 10 MG PO SCH ×3 (09:13→21:41)
[2018-05-01] MEDS: busPIRone TAB* 5 MG PO SCH ×3 (09:18→21:41)
[2018-05-01 15:00] LABS: BUN/Creatinine Ratio 14.1 (8-20); Calcium 9.6 mg/dL (8.6-10.3); EGFR African American 119.8 (>60); Potassium 3.7 mmol/L (3.5-5.0)
--- NOTE | 2018-05-01 16:24 | PN ---
Subjective Date of Service: 05/01/18 Interval History: Pt c/o no abd pain. NG tube is "tolerable". Pt agrees to PEG tomorrow Objective Active Medications: Acetaminophen (Tylenol Tab*) 650 mg PO Q6H PRN PRN Reason: pain/fever Last Admin: 05/01/18 05:57 Dose: 650 mg Buspirone HCl (Buspar Tab*) 7.5 mg PO TID [facility] Last Admin: 05/01/18 15:18 Dose: 7.5 mg Multivitamins/Minerals (Theragran/Minerals Tab*) 0.5 tab PO DAILY [facility] Last Admin: 05/01/18 09:12 Dose: Not Given Pto: Domperidone 10 (Mg) 10 mg PO TID [facility] Last Admin: 05/01/18 15:18 Dose: 10 mg Polyethylene Glycol/Electrolytes (Miralax*) 17 gm PO DAILY [facility] Last Admin: 05/01/18 09:12 Dose: Not Given Throat Lozenges (Chloraseptic Leandro*) 1 leandro MT Q3H PRN PRN Reason: SORE THROAT Last Admin: 04/28/18 22:34 Dose: 1 leandro Vital Signs - 8 hr 05/01/18 11:52 Temperature 98.5 F Pulse Rate 85 Respiratory 16 Rate Blood Pressure 119/66 (mmHg) O2 Sat by Pulse 98 Oximetry Oxygen Devices in Use Now: None Appearance: 48 yo f in nAD, AAOx3 - Nutrition: Malnutrition Diagnosis/Plan Malnutrition Assessment by Registered Dietitian: Malnutrition Assessment Clinical Characteristics Chronic,Severe Malnutrition Assessment: 17% wt loss x 9 mos (severe) Criteria < or = 75% of EEE x > or = 1 mo mild temporal wasting visualized on observation Malnutrition Assessment: NGT feedings began 04/28. Pt currently tolerating Interventions @ 10 mls/hr. Will follow ability to advance to goal of 40 mls/hr (Liquid Hope formula). Malnutrition Assessment: Goals 1. Enteral nutrition support will be adequate to promote weight repletion and maintain hydration Result Diagrams: 04/27/18 20:53 05/01/18 14:27 Additional Lab and Data: . Microbiology and Other Data: . Assess/Plan/Problems-Billing Assessment: Ms. 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 Regardless, extensive work up has found no worrisome etiology other than mild gastroparesis and SIBO perhaps related to gut dysbiosis after a course of antibiotics in the past. Patient has been assured that these findings are not dangerous or life- threatening but she continues to be unable to eat due to her feeling of discomfort and fear. Discussed mind/body connection with chronic pain at length , patient appreciates the conversation but only interested in finding strictly organic cause of distress. - Patient did not meet criteria for an eating disorder program at [facility] per SW at last hospitalization - Gastric emptying study with mild gastroparesis only. Mesenteric abdominal doppler with normal flow. Upper and lower endoscopy essentially normal - Thus far plan is PEG tube in aM and then follow up with multiple specialists that patient has arranged at [facility] and [place] in [place]. (2) Gastroparesis Comment: - Mild as per GI - EGD with bx, no explanatory abnormalities seen, pathology is negative in 2018 (3) Severe protein-calorie malnutrition Comment: - Now s/p NG tube placement, tolerating well at 40 ml/hr. - Secondary to impaired food intake in the setting of unclear symptoms of early satiety and abdominal fullness. BMI 13. - Has been seeing Dr Linda as an outpatient, she hopes to have patient prove tolerance of NG tube in preparation for possible PEG placement (4) DVT prophylaxis Comment: - SCDs and ambulation as tolerated Status and Disposition: Inpatient. Anticipate discharge to home when medically stable
[2018-05-01] MEDS ORDERED: NS 0.9% 1000 ML* 1,000 ML IV SCH (16:30)
[2018-05-02 06:49] LABS: ABS Basophils 0.1 10^3/ul (0-0.2); ABS Eosinophils 0.1 10^3/ul (0-0.6); ABS Lymphocytes 0.9 10^3/ul (1.0-4.8); ABS Monocytes 0.4 10^3/ul (0-0.8); ABS Neutrophils 4.4 10^3/ul (1.5-7.7); ABS Nucleated RBC 0 10^3/ul; Eosinophil % 0.9 %; Hematocrit 41 % (35-47); Hemoglobin 13.8 g/dl (12.0-16.0); Mean Corpuscular HGB Conc 33 g/dl (31-36); Mean Corpuscular Hemoglobin 31 pg (27-31); Mean Corpuscular Volume 92 fL (80-97); Mean Platelet Volume 9.3 fL (7.4-10.4); Nucleated Red Blood Cells % 0; Platelet Count 245 10^3/ul (150-450); Red Blood Count 4.51 10^6/ul (4.00-5.40); Red Cell Distribution Width 13 % (10.5-15); White Blood Count 5.8 10^3/ul (3.5-10.8)
[2018-05-02 06:56] LABS: Activated Partial Thrombo Time 29.9 seconds (26.0-36.3); INR 0.86 (0.77-1.02)
[2018-05-02 07:06] LABS: BUN/Creatinine Ratio 11.9 (8-20); Calcium 9.1 mg/dL (8.6-10.3); EGFR African American 131.6 (>60); EGFR Non-African American 108.8 (>60); Magnesium 2.2 mg/dL (1.9-2.7); Potassium 3.9 mmol/L (3.5-5.0)
[2018-05-02] MEDS: Polyethylene Glycol 3350* 17 GM PACKET PO SCH (07:39)
[2018-05-02] MEDS: busPIRone TAB* 5 MG PO SCH ×3 (07:39→22:48)
[2018-05-02] MEDS: DOMPERIDONE 10 MG PO SCH ×3 (07:39→22:48)
[2018-05-02] MEDS: Multivitamins/Minerals TAB PO SCH (07:39)
--- NOTE | 2018-05-02 10:46 | PN ---
Subjective Date of Service: 05/02/18 Interval History: Pt feels well, denies abd pain, awaiting PEG Objective Active Medications: Acetaminophen (Tylenol Tab*) 650 mg PO Q6H PRN PRN Reason: pain/fever Last Admin: 05/01/18 18:26 Dose: 650 mg Buspirone HCl (Buspar Tab*) 7.5 mg PO TID [facility] Last Admin: 05/02/18 07:39 Dose: Not Given Sodium Chloride (Ns 0.9% 1000 Ml*) 1,000 mls @ 50 mls/hr IV .PER RATE [facility] Last Admin: 05/01/18 18:28 Dose: 50 mls/hr Multivitamins/Minerals (Theragran/Minerals Tab*) 0.5 tab PO DAILY [facility] Last Admin: 05/02/18 07:39 Dose: Not Given Pto: Domperidone 10 (Mg) 10 mg PO TID [facility] Last Admin: 05/02/18 07:39 Dose: Not Given Polyethylene Glycol/Electrolytes (Miralax*) 17 gm PO DAILY [facility] Last Admin: 05/02/18 07:39 Dose: Not Given Throat Lozenges (Chloraseptic Leandro*) 1 leandro MT Q3H PRN PRN Reason: SORE THROAT Last Admin: 04/28/18 22:34 Dose: 1 leandro Vital Signs - 8 hr 05/02/18 05/02/18 03:37 06:11 Temperature 98.1 F 97.9 F Pulse Rate 81 76 Respiratory 18 18 Rate Blood Pressure 132/67 107/62 (mmHg) O2 Sat by Pulse 100 98 Oximetry Oxygen Devices in Use Now: None Appearance: 48 yo F in nAD, AAOx3, thin body habitus Eyes: No Scleral Icterus, PERRLA Ears/Nose/Mouth/Throat: NL Teeth, Lips, Gums, Mucous Membranes Moist Neck: NL Appearance and Movements; NL JVP, Trachea Midline Respiratory: Symmetrical Chest Expansion and Respiratory Effort, Clear to Auscultation Cardiovascular: NL Sounds; No Murmurs; No JVD, RRR Abdominal: NL Sounds; No Tenderness; No Distention, No Hepatosplenomegaly Lymphatic: No Cervical Adenopathy, No Inguinal Adenopathy Extremities: No Edema, No Clubbing, Cyanosis Skin: No Rash or Ulcers, No Nodules or Sclerosis Neurological: Alert and Oriented x 3, NL Muscle Strength and Tone - Nutrition: Malnutrition Diagnosis/Plan Malnutrition Assessment by Registered Dietitian: Malnutrition Assessment Clinical Characteristics Chronic,Severe Malnutrition Assessment: 17% wt loss x 9 mos (severe) Criteria < or = 75% of EEE x > or = 1 mo mild temporal wasting visualized on observation Malnutrition Assessment: NGT feedings began 04/28. Pt currently tolerating Interventions @ 10 mls/hr. Will follow ability to advance to goal of 40 mls/hr (Liquid Hope formula). Malnutrition Assessment: Goals 1. Enteral nutrition support will be adequate to promote weight repletion and maintain hydration Result Diagrams: 05/02/18 06:23 05/02/18 06:23 Additional Lab and Data: . Microbiology and Other Data: . Assess/Plan/Problems-Billing Assessment: Ms. 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 Regardless, extensive work up has found no worrisome etiology other than mild gastroparesis and SIBO perhaps related to gut dysbiosis after a course of antibiotics in the past. Patient has been assured that these findings are not dangerous or life- threatening but she continues to be unable to eat due to her feeling of discomfort and fear. Discussed mind/body connection with chronic pain at length , patient appreciates the conversation but only interested in finding strictly organic cause of distress. - Patient did not meet criteria for an eating disorder program at [facility] per at last hospitalization - Gastric emptying study with mild gastroparesis only. Mesenteric abdominal doppler with normal flow. Upper and lower endoscopy essentially normal - Thus far plan is PEG tube today and then follow up with multiple specialists that patient has arranged at [facility] and [place] in [place]. (2) Gastroparesis Comment: - Mild as per GI - EGD with bx, no explanatory abnormalities seen, pathology is negative in 2018 (3) Severe protein-calorie malnutrition Comment: - Now s/p NG tube placement, tolerating well at 40 ml/hr. - Secondary to impaired food intake in the setting of unclear symptoms of early satiety and abdominal fullness. BMI 13. - Has been seeing Dr Linda as an outpatient, she hopes to have patient prove tolerance of NG tube in preparation for possible PEG placement (4) DVT prophylaxis Comment: - SCDs and ambulation as tolerated Status and Disposition: Inpatient. Anticipate discharge to home when medically stable
[2018-05-02] MEDS ORDERED: Glucagon* 1 MG VIAL IM ONE (13:00)
[2018-05-02] MEDS ORDERED: ceFAZolin 1 GM* X ONE DOSE (AddVan) IVPB ×2 (13:00)
[2018-05-02] MEDS ORDERED: Midazolam* 1 MG/ML 2 ML VIAL (2 MG) ONE (13:33)
[2018-05-02] MEDS ORDERED: fentaNYL* 50 MCG/ML 2 ML VIAL (100 MCG VIAL) ONE (13:33)
[2018-05-02] MEDS ORDERED: Bupivacaine 0.5% SDV PF* 30ML VIAL ONE (14:38)
[2018-05-03] MEDS: Morphine VIAL* 4 MG/ML VIAL (1 ml vial) IV PRN ×2 (00:40→10:12)
[2018-05-03 07:05] LABS: BUN/Creatinine Ratio 15.6 (8-20); Calcium 8.8 mg/dL (8.6-10.3); EGFR African American 179.9 (>60); EGFR Non-African American 148.7 (>60); Potassium 3.9 mmol/L (3.5-5.0)
[2018-05-03] MEDS: busPIRone TAB* 5 MG PO SCH ×3 (08:17→22:43)
[2018-05-03] MEDS: DOMPERIDONE 10 MG PO SCH ×3 (08:18→22:44)
[2018-05-03] MEDS: Multivitamins/Minerals TAB PO SCH (08:18)
[2018-05-03] MEDS: Polyethylene Glycol 3350* 17 GM PACKET PO SCH (08:18)
--- NOTE | 2018-05-03 10:30 | PN ---
Subjective Date of Service: 05/03/18 Interval History: Pt c/o pain around PEG insertion site. Had a BM yesterday Objective Active Medications: Acetaminophen (Tylenol Tab*) 650 mg PO Q6H PRN PRN Reason: pain/fever Last Admin: 05/01/18 18:26 Dose: 650 mg Buspirone HCl (Buspar Tab*) 7.5 mg PO TID [facility] Last Admin: 05/03/18 08:17 Dose: Not Given Morphine Sulfate (Morphine Vial*) 1 mg IV Q4H PRN PRN Reason: PAIN Last Admin: 05/03/18 10:12 Dose: 1 mg Multivitamins/Minerals (Theragran/Minerals Tab*) 0.5 tab PO DAILY [facility] Last Admin: 05/03/18 08:18 Dose: Not Given Pto: Domperidone 10 (Mg) 10 mg PO TID [facility] Last Admin: 05/03/18 08:18 Dose: Not Given Polyethylene Glycol/Electrolytes (Miralax*) 17 gm PO DAILY [facility] Last Admin: 05/03/18 08:18 Dose: Not Given Throat Lozenges (Chloraseptic Leandro*) 1 leandro MT Q3H PRN PRN Reason: SORE THROAT Last Admin: 04/28/18 22:34 Dose: 1 leandro Vital Signs - 8 hr 05/03/18 05/03/18 05/03/18 02:30 07:43 08:00 Temperature 98.6 F 98.3 F Pulse Rate 106 89 Respiratory 18 18 18 Rate Blood Pressure 104/51 104/61 (mmHg) O2 Sat by Pulse 96 97 Oximetry 05/03/18 10:12 Temperature Pulse Rate Respiratory 18 Rate Blood Pressure (mmHg) O2 Sat by Pulse Oximetry Oxygen Devices in Use Now: None Appearance: 48 yo F , thin body habitus, in NAD, AAOx3 Eyes: No Scleral Icterus, PERRLA Ears/Nose/Mouth/Throat: NL Teeth, Lips, Gums, Mucous Membranes Moist Neck: NL Appearance and Movements; NL JVP, Trachea Midline Respiratory: Symmetrical Chest Expansion and Respiratory Effort, Clear to Auscultation Cardiovascular: NL Sounds; No Murmurs; No JVD, RRR Abdominal: - - PEG in place, dressings with scant amount of serosanguineus discharge, abd mild tenderness around PEG tube inserion , no rebound, no guarding, BS+ Lymphatic: No Cervical Adenopathy Extremities: No Edema Skin: No Nodules or Sclerosis Neurological: Alert and Oriented x 3, NL Muscle Strength and Tone - Nutrition: Malnutrition Diagnosis/Plan Malnutrition Assessment by Registered Dietitian: Malnutrition Assessment Clinical Characteristics Chronic,Severe Malnutrition Assessment: 17% wt loss x 9 mos (severe) Criteria < or = 75% of EEE x > or = 1 mo mild temporal wasting visualized on observation Malnutrition Assessment: NGT feedings began 04/28. Pt currently tolerating Interventions @ 10 mls/hr. Will follow ability to advance to goal of 40 mls/hr (Liquid Hope formula). Malnutrition Assessment: Goals 1. Enteral nutrition support will be adequate to promote weight repletion and maintain hydration Result Diagrams: 05/02/18 06:23 05/03/18 06:00 Additional Lab and Data: . Microbiology and Other Data: . Assess/Plan/Problems-Billing Assessment: Ms. 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 Past evaluations included: - Suspected component of eating disorder with hypersensitivity and catastrophization regarding abdominal sensations. Regardless, extensive work up has found no worrisome etiology other than mild gastroparesis and SIBO perhaps related to gut dysbiosis after a course of antibiotics in the past. Patient has been assured that these findings are not dangerous or life- threatening but she continues to be unable to eat due to her feeling of discomfort and fear. Discussed mind/body connection with chronic pain at length , patient appreciates the conversation but only interested in finding strictly organic cause of distress. - Patient did not meet criteria for an eating disorder program at [facility] per at last hospitalization - Gastric emptying study with mild gastroparesis only. Mesenteric abdominal doppler with normal flow. Upper and lower endoscopy essentially normal s/p PEG on 05/02/18, then follow up with multiple specialists that patient has arranged at [facility] and [place] in [place]. (2) Gastroparesis Comment: - Mild as per GI - EGD with bx, no explanatory abnormalities seen, pathology is negative in 2018 (3) Severe protein-calorie malnutrition Comment: - Now s/p PEG placement will start feeds at noon - Secondary to impaired food intake in the setting of unclear symptoms of early satiety and abdominal fullness. BMI 13. - Has been seeing Dr Linda as an outpatient (4) DVT prophylaxis Comment: - SCDs and ambulation as tolerated Status and Disposition: Inpatient. Anticipate discharge to home when medically stable
--- NOTE | 2018-05-04 07:57 | PN ---
Subjective Date of Service: 05/04/18 Interval History: Pt did not tolerate bolus feeding yesterday. Continuous feeding at 40 ml/hr restarted. C/o abd "sore" after the procedure. Objective Active Medications: Acetaminophen (Tylenol Tab*) 650 mg PO Q6H PRN PRN Reason: pain/fever Last Admin: 05/01/18 18:26 Dose: 650 mg Buspirone HCl (Buspar Tab*) 7.5 mg PO TID [facility] Last Admin: 05/03/18 22:43 Dose: 7.5 mg Morphine Sulfate (Morphine Vial*) 1 mg IV Q4H PRN PRN Reason: PAIN Last Admin: 05/03/18 10:12 Dose: 1 mg Multivitamins/Minerals (Theragran/Minerals Tab*) 0.5 tab PO DAILY [facility] Last Admin: 05/03/18 08:18 Dose: Not Given Pto: Domperidone 10 (Mg) 10 mg PO TID [facility] Last Admin: 05/03/18 22:44 Dose: 10 mg Polyethylene Glycol/Electrolytes (Miralax*) 17 gm PO DAILY [facility] Last Admin: 05/03/18 08:18 Dose: Not Given Throat Lozenges (Chloraseptic Leandro*) 1 leandro MT Q3H PRN PRN Reason: SORE THROAT Last Admin: 04/28/18 22:34 Dose: 1 leandro Vital Signs - 8 hr 05/04/18 03:20 Temperature 98.2 F Pulse Rate 64 Respiratory 16 Rate Blood Pressure 102/59 (mmHg) O2 Sat by Pulse 97 Oximetry Oxygen Devices in Use Now: None - Nutrition: Malnutrition Diagnosis/Plan Malnutrition Assessment by Registered Dietitian: Malnutrition Assessment Clinical Characteristics Chronic,Severe Malnutrition Assessment: 17% wt loss x 9 mos (severe) Criteria < or = 75% of EEE x > or = 1 mo mild temporal wasting visualized on observation Malnutrition Assessment: NGT feedings began 04/28. Pt currently tolerating Interventions @ 10 mls/hr. Will follow ability to advance to goal of 40 mls/hr (Liquid Hope formula). Malnutrition Assessment: Goals 1. Enteral nutrition support will be adequate to promote weight repletion and maintain hydration Result Diagrams: 05/02/18 06:23 05/03/18 06:00 Additional Lab and Data: . Microbiology and Other Data: . Assess/Plan/Problems-Billing Assessment: Ms. 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 Pt did not tolerate bolus feeding, cont feeding restarted. Likely d/c home once supplies for TF arranged Past evaluations included: - Suspected component of eating disorder with hypersensitivity and catastrophization regarding abdominal sensations. Regardless, extensive work up has found no worrisome etiology other than mild gastroparesis and SIBO perhaps related to gut dysbiosis after a course of antibiotics in the past. Patient has been assured that these findings are not dangerous or life- threatening but she continues to be unable to eat due to her feeling of discomfort and fear. Discussed mind/body connection with chronic pain at length , patient appreciates the conversation but only interested in finding strictly organic cause of distress. - Patient did not meet criteria for an eating disorder program at [facility] per SW at last hospitalization - Gastric emptying study with mild gastroparesis only. Mesenteric abdominal doppler with normal flow. Upper and lower endoscopy essentially normal s/p PEG on 05/02/18, then follow up with multiple specialists that patient has arranged at [facility] and [place] in [place]. (2) Gastroparesis Comment: - Mild as per GI - EGD with bx, no explanatory abnormalities seen, pathology is negative in 2018 (3) Severe protein-calorie malnutrition Comment: - Now s/p PEG placement on cont. feeding at 40 ml/hr, goal is at 50 ml/hr, but pt can supplement with regular PO diet as benito - Secondary to impaired food intake in the setting of unclear symptoms of early satiety and abdominal fullness. BMI 13. - Has been seeing Dr Linda as an outpatient (4) DVT prophylaxis Comment: - SCDs and ambulation as tolerated Status and Disposition: Inpatient. Medically stable for d/c , d/c when TF supplies arranged
[2018-05-04] MEDS: busPIRone TAB* 5 MG PO SCH ×3 (08:52→21:13)
[2018-05-04] MEDS: Multivitamins/Minerals TAB PO SCH (08:52)
[2018-05-04] MEDS: DOMPERIDONE 10 MG PO SCH ×3 (08:52→21:12)
[2018-05-04] MEDS: Polyethylene Glycol 3350* 17 GM PACKET PO SCH ×2 (08:53→14:40)
[2018-05-05] MEDS: Multivitamins/Minerals TAB PO SCH (09:52)
[2018-05-05] MEDS: busPIRone TAB* 5 MG PO SCH ×2 (09:52→14:46)
[2018-05-05] MEDS: DOMPERIDONE 10 MG PO SCH ×2 (09:52→14:47)
[2018-05-05 14:13] VITALS: BP 94/55
[2018-05-05] MEDS: Polyethylene Glycol 3350* 17 GM PACKET PO SCH (14:47)
--- NOTE | 2018-05-05 21:46 | DS ---
CC: Dr. Cortés; Dr. Linda * DISCHARGE SUMMARY: DATE OF ADMISSION: 04/27/18. DATE OF DISCHARGE: 05/05/18. PRIMARY CARE PROVIDER: Dr. Cortés. GRADUATE ASSISTANT: Dr. Linda. PRIMARY DIAGNOSIS: Severe protein-calorie malnutrition. SECONDARY DIAGNOSES: 1. 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 2. Gastroparesis. INTERVENTIONS DURING THE COURSE OF HOSPITAL STAY: PEG tube placement into the _ , this is not an [place] tube. MEDICATIONS ON DISCHARGE: 1. MiraLAX 17 g daily. 2. Multivitamin 0.5 g daily. 3. Domperidone 10 mg 3 times a day. 4. Buspirone 7.5 mg 3 times a day. 5. Acetaminophen 650 mg every 6 hours as needed. NUTRITION: The patient is to continue with tube feeds at 50 mL per hour. She can supplement with food as tolerated. HISTORY OF PRESENT ILLNESS AND HOSPITAL COURSE: This is a 48-year-old female with past medical history as outlined in the history of present illness on the day of admission, presented to the hospital, sent by a primary care provider secondary to malnutrition. She was seen in consultation by Gastroenterology and a PEG tube was ultimately placed by Interventional Radiology. The patient had difficulty with bolus feeds, was ultimately transitioned to continuous feeds , which she tolerated. She had been titrated up to 50 cc per hour prior to her discharge without any distress and without any residuals. She had not been supplementing her continuous feeds much orally prior to her discharge. Causes of her severe protein-calorie nutrition are multifactorial; however, almost certainly includes some component of eating disorder. She has had an extensive workup for other etiologies outlined in the text of her H and P as well as the course of her hospital stay. There were no complications during the course of this hospital stay. At followup, please; 1. Evaluate for continued function of her PEG tube. 2. Continue to monitor weight and nutritional status as I am sure you will. 3. No other specific labs or vitals that need followup. Reasons to return to the hospital including but not limited to recurrent or worsening symptoms, nausea, vomiting, inability to tolerate tube feeds, erythema or redness around PEG tube placement site, malfunction of the PEG tube , fevers, chills, night sweats, chest pain, shortness of breath, inability to obtain or tolerate medications discussed with the patient. She acknowledged understanding. TIME SPENT: Greater than 60 minutes were spent discharging the patient, greater than half was spent [id number] with the patient. [id number]/[facility] #: [id number] JULIA
== END 2018-05-05 16:00 | disposition home health service (06) | DRG 421 ==
LOC: ED 17:52 → MED 22:13 → OBSVTOIN 04-28 14:24
PROVIDERS: ADMIT Internal Medicine; ATTEND Internal Medicine
PROC: 0DH63UZ Insertion of Feeding Device into Stomach, Percutaneous Approach (ICD-10-PCS; principal; 2018-05-02)
DX: E43 Unspecified severe protein-calorie malnutrition (principal); Z68.1 Body mass index [BMI] 19.9 or less, adult; F50.9 Eating disorder, unspecified; K31.84 Gastroparesis; M79.7 Fibromyalgia; R53.82 Chronic fatigue, unspecified; Z79.899 Other long term (current) drug therapy; Z91.041 Radiographic dye allergy status; Z82.61 Family history of arthritis; Z80.51 Family history of malignant neoplasm of kidney
CPT/HCPCS: 36415; 49440; 71045; 80048; 80053; 81003; 81015; 83605; 83690; 83735; 85025; 85610; 85730; 86140; 87086; 93005; 99156; 99157; 99283; A9270-GY; C1769; J0690; J1610; J2250; J2270; J3010; Q9965

== ENCOUNTER 2018-11-18 08:54 | Emergency (ER) | payer BC ==
[2018-11-18 09:04] VITALS: BP 106/76
--- NOTE | 2018-11-18 10:02 | UC ---
Skin Complaint HPI - HPI Summary HPI Summary: 48-year-old woman comes in with chief complaint of drainage around her G-tube. Patient's had a G-tube in for tube feedings for approximately a year. Usually she changes the dressings about twice a week. Yesterday when she changes the dressing she noticed some drainage on the dressing. She describes it as slimy. No fevers or chills. No complaint of tube is not working correctly. She spoke with the interventional radiologist Dr. Ventura who put the tube and yesterday. She reports he recommended getting it evaluated. Patient feels well otherwise. - History of Current Complaint Chief Complaint: UCSkin Time Seen by Provider: 11/18/18 09:02 Stated Complaint: SKIN COMPLAINT Pain Intensity: 8 - Allergy/Home Medications Allergies/Adverse Reactions: Allergies Allergy/AdvReac Type Severity Reaction Status Date / Time metronidazole [From Flagyl] Allergy Unknown Verified 11/18/18 09:04 Reaction Details gluten AdvReac Mild GI Upset Verified 11/18/18 09:04 Home Medications: Home Medications L.acidoph,Paracasei, B.lactis [Probiotic] 1 each PO 11/18/18 [History] PMH/Surg Hx/FS Hx/Imm Hx Previously Healthy: Yes - G TUBE Other GI/ History: GASTROPARESIS, EATING D/O Psychological History: Depression - Surgical History Surgical History: Yes Surgery Procedure, Year, and Place: 1987 - FOREARM W/ PLATE. 04/2018 INSERTED FEEDING TUBE - Family History Known Family History: Negative: Hypertension, Respiratory Disease, Seizure Disorder - Social History Alcohol Use: None Substance Use Type: None Smoking Status (MU): Never Smoked Tobacco - Immunization History Most Recent Influenza Vaccination: 02/09/18 Most Recent Tetanus Shot: unknown Most Recent Pneumonia Vaccination: not received Review of Systems All Other Systems Reviewed And Are Negative: Yes Constitutional: Positive: Negative Skin: Positive: Other - SEE HPI Eyes: Positive: Negative ENT: Positive: Negative Respiratory: Positive: Negative Cardiovascular: Positive: Negative Gastrointestinal: Positive: Other - SEE HPI Motor: Positive: Negative Neurovascular: Positive: Negative Musculoskeletal: Positive: Negative Neurological: Positive: Negative Psychological: Positive: Negative Is Patient Immunocompromised?: No Physical Exam Triage Information Reviewed: Yes Appearance: Well-Appearing, No Pain Distress, Well-Nourished Vital Signs: Initial Vital Signs Temp 99.0 F 11/18/18 08:57 Pulse 86 11/18/18 08:57 Resp 18 11/18/18 08:57 BP 106/76 11/18/18 08:57 Pulse Ox 100 11/18/18 08:57 Vital Signs Reviewed: Yes Eye Exam: Normal Eyes: Positive: Conjunctiva Clear Neck: Positive: Supple Respiratory: Positive: No respiratory distress Abdomen Description: Positive: Nontender Musculoskeletal: Positive: Strength Intact, ROM Intact Neurological: Positive: Alert Psychological: Positive: Age Appropriate Behavior Skin: Positive: Other - G-tube is in place. Dressing was removed there was small amount of yellow drainage approximate 5 mm in width on the dressing at the base of the G-tube. There is no foul smell. No erythema the area is nontender to palpation. I do not see any active drainage at this time. Course/Dx - Course Course Of Treatment: Patient reports the amount of drainage today's less than what she saw yesterday. She has no fever no active drainage I can see at this time no erythema no tenderness. I discussed the case with Dr. Ventura who at this time if there is no sign of infection recommended no antibiotic treatment but then more frequent dressing changes and follow-up with him as needed. - Diagnoses Provider Diagnosis: Gastrostomy tube in place Discharge - Sign-Out/Discharge Documenting (check all that apply): Patient Departure All imaging exams completed and their final reports reviewed: No Studies - Discharge Plan Condition: Stable Disposition: HOME Patient Education Materials: Tube Feeding (DC) Referrals: Niharika Cortés MD [Primary Care Provider] - Jacob Ventura MD [Medical Doctor] - Additional Instructions: FOLLOW UP WITH YOUR DOCTOR IF NOT COMPLETELY IMPROVED. CHANGE THE G TUBE DRESSINGS EVERY DAY UNTIL COMPLETELY IMPROVED. GET RECHECKED SOONER IF YOUR CONDITION WORSENS; PAIN, FEVER, SIGNS OF INFECTION OR ANY QUESTIONS OR CONCERNS. - Billing Disposition and Condition Condition: STABLE Disposition: Home
== END 2018-11-18 10:05 | disposition home or self-care (01) ==
LOC: UCEAST 08:54
DX: Z43.1 Encounter for attention to gastrostomy (principal); F32.9 Major depressive disorder, single episode, unspecified
CPT/HCPCS: 99212; G0463

== ENCOUNTER 2019-03-23 20:30 | Emergency (ER) | payer BC ==
--- OUTSIDE RECORDS SUMMARY | 2019-03-23 20:46 | XMS REPORT | Continuity of Care Document ---
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 Problems Description No Information Available Social History Type Date Description Comments Sex Unknown Tobacco Use Start: Unknown Patient has never smoked Smoking Status Reviewed: 02/06/19 Patient has never smoked Allergies, Adverse Reactions, Alerts Description No Known Drug Allergies Medications Description No Active Medications Immunizations Description No Information Available Vital Signs Date Vital Result Comment 02/06/2019 1:27pm Height 65.5 inches 5'5.50" Weight 105.00 lb thinks 2 wks to a month ago BP Systolic 113 mmHg BP Diastolic 73 mmHg Heart Rate 110 /min BMI (Body Mass Index) 17.2 kg/m2 06/06/2018 11:33am Height 65.5 inches 5'5.50" Weight 90.00 lb BP Systolic 116 mmHg BP Diastolic 77 mmHg Heart Rate 85 /min BMI (Body Mass Index) 14.7 kg/m2 Results Test Acquired Date Facility Test Result H/L Range Note Laboratory test finding 03/01/[place] [facility] [place] (Fe) 62 g/dL Normal 50-212 Thyroxine 6.96 g/dL Normal 6.09-12.23 TSH (Thyroid Stim Horm) 8.24 mcIU/mL High 0.34-5.60 Free T4 (Free Thyroxine) 0.80 ng/dL Normal 0.61-1.12 T3 Free 2.90 pg/mL Normal 2.5-3.9 T3 Total 96 ng/dL Normal 87-178 Thyroperoxidase AB 836.26 IU/mL High <9 Vitamin B12 1095 pg/mL High 180-914 1 Thyroglobulin Antibody 1.3 IU/mL <4.0 CBC Auto Diff 03/01/2019 [facility] [place] White Blood Count 4.1 10^3/uL Normal 3.5- 10.8 Red Blood Count 4.68 10^6/uL Normal 3.70-4.87 Hemoglobin 14.0 g/dL Normal 12.0-16.0 Hematocrit 41 % Normal 35-47 Mean Corpuscular Volume 88 fL Normal 80-97 Mean Corpuscular Hemoglobin 30 pg Normal 27-31 Mean Corpuscular HGB Conc 34 g/dL Normal 31-36 Red Cell Distribution Width 13 % Normal 10-15 Platelet Count 237 10^3/uL Normal 150-450 Mean Platelet Volume 9.5 fL Normal 7.4-10.4 Abs Neutrophils 2.6 10^3/uL Normal 1.5-7.7 Abs Lymphocytes 1.0 10^3/uL Normal 1.0-4.8 Abs Monocytes 0.3 10^3/uL Normal 0-0.8 Abs Eosinophils 0.1 10^3/uL Normal 0-0.6 Abs Basophils 0.1 10^3/uL Normal 0-0.2 Abs Nucleated RBC 0.0 10^3/uL Granulocyte % 64.5 % Lymphocyte % 24.6 % Monocyte % 6.4 % Eosinophil % 3.2 % Basophil % 1.3 % Nucleated Red Blood Cells % 0.0 Laboratory test finding 03/01/2019 [facility] [place] Anti Nuclear Antibody 0.1 U 2 Iodine 116 ng/mL Abnormal 40-92 3 Copper, Serum 1.06 g/mL 0.75-1.45 4 Selenium 151 ng/mL Abnormal 70-150 5 Zinc Serum 0.52 g/mL Abnormal 0.66-1.10 6 Reverse T3 11 ng/dL 10-24 7 Laboratory test finding 01/11/2019 [facility] [place] Pregnenolone 113 ng/dL 33-248 8 Dhea 5.2 ng/mL <8.0 9 Mycoplasma Pneumonia 01/11/2019 [facility] [place] Mycoplasma Positive Abnormal Negative Igg/Igm pneumoniae IgG Ab Mycoplasma pneumoniae IgM Ab Negative Negative Mpneumoniae Ab Interpretation See Comment 10 Laboratory test finding 01/11/2019 [facility] [place] Anti Nuclear Antibody 0.1 U 11 Iodine 96 ng/mL Abnormal 40-92 12 Homocysteine 5 mcmol/L 13 Estradiol, Confirmatory, S <10 pg/mL 14 Reverse T3 24 ng/dL 10-24 15 Lead 01/11/2019 [facility] [place] Lead,Venous, B < 1.0 g/dL 0.0-4.9 16 Venous/Capillary Venous Submitting Laboratory Phone [phone] Laboratory test finding 01/11/2019 [facility] [place] Copper, Serum 1.34 g/mL 0.75- 1.45 18 Selenium 158 ng/mL Abnormal 70-150 19 Zinc Serum 0.79 g/mL 0.66-1.10 20 Rosy Gomez Comprehensive 01/11/2019 [facility] [place] Ebv Capsid Ag IgG Ab Positive Negative Ebv Capsid Ag IgM Ab Negative Negative Rosy-Gomez Nuclear Antigen Positive Negative Rosy-Gomez Virus Interp See Comment 21 Laboratory test finding 01/11/2019 [facility] Arsenic Whole Blood <1 ng/mL 0- 12 22 Cadmium Whole Blood 0.3 ng/mL 0.0-4.9 23 Mercury,Blood <1 ng/mL 0-9 24 Urine Culture And Sensitivities 01/11/2019 [facility] [place] Urine Culture SEE RESULT BELOW 25 Urinalysis Profile 01/11/2019 [facility] [place] Urine Color Portia Urine Appearance Clear Urine Specific [place] 1.009 Low 1.010-1.030 Urine pH 7.0 Normal 5-9 Urine Urobilinogen Negative Negative Urine Ketones 1+ Abnormal Negative Urine Protein Negative Negative Urine Leukocytes Negative Negative Urine Blood 2+ Abnormal Negative Urine Nitrite Negative Negative Urine Bilirubin Negative Negative Urine Glucose Negative Negative Urine White Blood Cell Trace(0-5/hpf) Absent Urine Red Blood Cell 2+(6-10/hpf) Abnormal Absent Urine Bacteria Absent Absent Laboratory test finding 01/11/2019 [facility] [place] Uric Acid 4.7 mg/dL Normal 2.3- 6.6 Magnesium 2.0 mg/dL Normal 1.9-2.7 Iron (Fe) 148 g/dL Normal 50-212 CRP High Sensitivity 0.24 mg/L <2.00 TSH (Thyroid Stimulating Horm) 0.02 mcIU/mL Low 0.34-5.60 Free T3 4.20 pg/mL High 2.5-3.9 Cortisol 12.36 g/dL 26 Thyroxine 13.01 g/dL High 6.09-12.23 Total T3 124 ng/dL Normal 87-178 Thyroperoxidase AB 620.12 IU/mL High <9 Vitamin B12 1354 pg/mL High 180-914 27 Estradiol <40 pg/mL 28 Vitamin D Total 25(Oh) 39.8 ng/mL Normal 20-50 29 Erythrocyte Sed Rate 2 mm/Hr Normal 0-19 Thyroglobulin Antibody II 1.2 IU/mL <4.0 Free T4 1.46 ng/dL High 0.61-1.12 Lipid Profile (Trig/Chol/HDL) 01/11/2019 [facility] [place] Triglycerides 63 mg/dL 30 Cholesterol 213 mg/dL 31 HDL Cholesterol 52.5 mg/dL 32 LDL Cholesterol 148 mg/dL 33 Comp Metabolic Panel 01/11/2019 [facility] [place] Sodium 138 mmol/L Normal 135-145 Potassium 4.3 mmol/L Normal 3.5-5.0 Chloride 102 mmol/L Normal 101-111 Co2 Carbon Dioxide 28 mmol/L Normal 22-32 Anion Gap 8 mmol/L Normal 2-11 Glucose 87 mg/dL Normal 70-100 Blood Urea Nitrogen 9 mg/dL Normal 6-24 Creatinine 0.56 mg/dL Normal 0.51-0.95 BUN/Creatinine Ratio 16.1 Normal 8-20 Calcium 10.2 mg/dL Normal 8.6-10.3 Total Protein 7.1 g/dL Normal 6.4-8.9 Albumin 4.4 g/dL Normal 3.2-5.2 Globulin 2.7 g/dL Normal 2-4 Albumin/Globulin Ratio 1.6 Normal 1-3 Total Bilirubin 0.50 mg/dL Normal 0.2-1.0 Alkaline Phosphatase 85 U/L Normal 34-104 Alt 17 U/L Normal 7-52 Ast 19 U/L Normal 13-39 Egfr Non- 115.1 >60 Egfr 139.2 >60 34 CBC Auto Diff 01/11/2019 [facility] [place] White Blood Count 5.1 10^3/uL Normal 3.5- 10.8 Red Blood Count 5.00 10^6/uL High 3.70-4.87 Hemoglobin 15.3 g/dL Normal 12.0-16.0 Hematocrit 44 % Normal 35-47 Mean Corpuscular Volume 89 fL Normal 80-97 Mean Corpuscular Hemoglobin 31 pg Normal 27-31 Mean Corpuscular HGB Conc 35 g/dL Normal 31-36 Red Cell Distribution Width 12 % Normal 10-15 Platelet Count 266 10^3/uL Normal 150-450 Mean Platelet Volume 9.6 fL Normal 7.4-10.4 Abs Neutrophils 3.9 10^3/uL Normal 1.5-7.7 Abs Lymphocytes 0.8 10^3/uL Low 1.0-4.8 Abs Monocytes 0.3 10^3/uL Normal 0-0.8 Abs Eosinophils 0.0 10^3/uL Normal 0-0.6 Abs Basophils 0.0 10^3/uL Normal 0-0.2 Abs Nucleated RBC 0.0 10^3/uL Granulocyte % 75.4 % Lymphocyte % 16.3 % Monocyte % 6.7 % Eosinophil % 0.7 % Basophil % 0.9 % Nucleated Red Blood Cells % 0.0 Platelet Count 10/31/2018 [facility] [place] Platelet Count 228 10^3/uL Normal 150-450 Mean Platelet Volume 8.9 fL Normal 7.4-10.4 Inr/Protime 10/31/2018 [facility] Inr 0.91 Normal 0.82-1.09 35 Laboratory test 10/31/2018 [facility] Partial Thrombo 36.7 seconds Normal 26.0- 38.0 finding Time PTT 1 Normal Range 180 to 914 Indeterminate Range 145 to 180 Deficient Range <145 2 REFERENCE VALUE <=1.0 (Negative) Test Performed by: [facility] [place] [place] [address] Import/Export Administrator: Elvin Sands M.D. Ph.D.; CLIA# [id number] 3 ADDITIONAL INFORMATION This test was developed and its performance characteristics determined by [facility] in a manner consistent with CLIA requirements. This test has not been cleared or approved by the U.S. Food and Drug Administration. Test Performed by: [facility] [place] [place] [address] Import/Export Administrator: Elvin Sands M.D. Ph.D.; CLIA# [id number] 4 ADDITIONAL INFORMATION This test was developed and its performance characteristics determined by [facility] in a manner consistent with CLIA requirements. This test has not been cleared or approved by the U.S. Food and Drug Administration. Test Performed by: [facility] [place] [place] [address] Import/Export Administrator: Elvin Sands M.D. Ph.D.; CLIA# [id number] 5 ADDITIONAL INFORMATION This test was developed and its performance characteristics determined by [facility] in a manner consistent with CLIA requirements. This test has not been cleared or approved by the U.S. Food and Drug Administration. Test Performed by: [facility] [place] [place] [address] Import/Export Administrator: Elvin Sands M.D. Ph.D.; CLIA# [id number] 6 ADDITIONAL INFORMATION This test was developed and its performance characteristics determined by [facility] in a manner consistent with CLIA requirements. This test has not been cleared or approved by the U.S. Food and Drug Administration. Test Performed by: [facility] [place] [place] [address] Import/Export Administrator: Elvin Sands M.D. Ph.D.; CLIA# [id number] 7 ADDITIONAL INFORMATION This test was developed and its performance characteristics determined by [facility] in a manner consistent with CLIA requirements. This test has not been cleared or approved by the U.S. Food and Drug Administration. Test Performed by: [facility] [place] [address] Import/Export Administrator: Elvin Sands M.D. Ph.D.; CLIA# [id number] 8 ADDITIONAL INFORMATION This test was developed and its performance characteristics determined by [facility] in a manner consistent with CLIA requirements. This test has not been cleared or approved by the U.S. Food and Drug Administration. Test Performed by: [facility] [place] [place] [address] Import/Export Administrator: Elvin Sands M.D. Ph.D.; CLIA# [id number] 9 ADDITIONAL INFORMATION This test was developed and its performance characteristics determined by [facility] in a manner consistent with CLIA requirements. This test has not been cleared or approved by the U.S. Food and Drug Administration. Test Performed by: [facility] [place] [place] [address] Import/Export Administrator: Elvin Sands M.D. Ph.D.; CLIA# [id number] 10 RESULT: Results suggest past exposure. ADDITIONAL INFORMATION This test has been modified from the front counter attendant's instructions. Its performance characteristics were determined by [facility] in a manner consistent with CLIA requirements. This test has not been cleared or approved by the U.S. Food and Drug Administration. Test Performed by: [facility] [place] [place] [address] Import/Export Administrator: Elvin Sands M.D. Ph.D.; CLIA# [id number] 11 REFERENCE VALUE <=1.0 (Negative) Test Performed by: [facility] [place] [place] [address] Import/Export Administrator: Elvin Sands M.D. Ph.D.; CLIA# [id number] 12 ADDITIONAL INFORMATION This test was developed and its performance characteristics determined by [facility] in a manner consistent with CLIA requirements. This test has not been cleared or approved by the U.S. Food and Drug Administration. Test Performed by: [facility] - [address] [address] Import/Export Administrator: Elvin Sands M.D. Ph.D.; CLIA# [id number] 13 REFERENCE VALUE <=13 (Fasting) ADDITIONAL INFORMATION This test was developed and its performance characteristics determined by [facility] in a manner consistent with CLIA requirements. This test has not been cleared or approved by the U.S. Food and Drug Administration. Test Performed by: [facility] - [address] [address] Import/Export Administrator: Elvin Sands M.D. Ph.D.; CLIA# [id number] 14 REFERENCE VALUE Premenopausal: 15-350 (E2 levels vary widely through the menstrual cycle.) Postmenopausal: <10 ADDITIONAL INFORMATION This test was developed and its performance characteristics determined by [facility] in a manner consistent with CLIA requirements. This test has not been cleared or approved by the U.S. Food and Drug Administration. Test Performed by: [facility] - [address] [address] Import/Export Administrator: Elvin Sands M.D. Ph.D.; CLIA# [id number] 15 ADDITIONAL INFORMATION This test was developed and its performance characteristics determined by [facility] in a manner consistent with CLIA requirements. This test has not been cleared or approved by the U.S. Food and Drug Administration. Test Performed by: [facility] [place] [place] [address] Import/Export Administrator: Elvin Sands M.D. Ph.D.; CLIA# [id number] 16 ADDITIONAL INFORMATION Testing performed by Inductively Coupled Plasma-Mass Spectrometry (ICP-MS). This test was developed and its performance characteristics determined by [facility] in a manner consistent with CLIA requirements. This test has not been cleared or approved by the U.S. Food and Drug Administration. 17 Test Performed by: [facility] [place] [place] [address] Import/Export Administrator: Elvin Sands M.D. Ph.D.; CLIA# [id number] 18 ADDITIONAL INFORMATION This test was developed and its performance characteristics determined by [facility] in a manner consistent with CLIA requirements. This test has not been cleared or approved by the U.S. Food and Drug Administration. Test Performed by: [facility] [place] [place] [address] Import/Export Administrator: Elvin Sands M.D. Ph.D.; CLIA# [id number] 19 ADDITIONAL INFORMATION This test was developed and its performance characteristics determined by [facility] in a manner consistent with CLIA requirements. This test has not been cleared or approved by the U.S. Food and Drug Administration. Test Performed by: [facility] [place] [place] [address] Import/Export Administrator: Elvin Sands M.D. Ph.D.; CLIA# [id number] 20 ADDITIONAL INFORMATION This test was developed and its performance characteristics determined by [facility] in a manner consistent with CLIA requirements. This test has not been cleared or approved by the U.S. Food and Drug Administration. Test Performed by: [facility] [place] [place] [address] Import/Export Administrator: Elvin Sands M.D. Ph.D.; CLIA# [id number] 21 RESULT: Results suggest past infection. ADDITIONAL INFORMATION In most populations, at least 90% of the adult population will have been infected with EBV sometime in the past and therefore, will be positive for anti-VCA/IgG and anti- EBNA. Antibodies to EBNA develop 6-8 weeks after primary infection and remain present for life. Presence of VCA/ IgM antibodies indicates recent primary infection with EBV. Test Performed by: [facility] [place] [place] [address] Import/Export Administrator: Elvin Sands M.D. Ph.D.; CLIA# [id number] 22 ADDITIONAL INFORMATION This test was developed and its performance characteristics determined by [facility] in a manner consistent with CLIA requirements. This test has not been cleared or approved by the U.S. Food and Drug Administration. Test Performed by: [facility] [place] [place] [address] Import/Export Administrator: Elvin Sands M.D. Ph.D.; CLIA# [id number] 23 ADDITIONAL INFORMATION This test was developed and its performance characteristics determined by [facility] in a manner consistent with CLIA requirements. This test has not been cleared or approved by the U.S. Food and Drug Administration. Test Performed by: [facility] [place] [address] Import/Export Administrator: Elvin Sands M.D. Ph.D.; CLIA# [id number] 24 ADDITIONAL INFORMATION This test was developed and its performance characteristics determined by [facility] in a manner consistent with CLIA requirements. This test has not been cleared or approved by the U.S. Food and Drug Administration. Test Performed by: [facility] [address] [place] [address] Import/Export Administrator: Elvin Sands M.D. Ph.D.; CLIA# [id number] 25 SEE RESULT BELOW Name: CORRINEMELA Earnest : [address]: Malinda Bonilla MD Acct: [id number] Unit: [id number] AGE: 49 Location: LAB Re01/11/19 SEX: F Status: REG REF SPEC: [id number] SOMMER: 01/11/191148 [facility] DR: Malinda Bonilla MD REQ: [id number] RECD: 01/11/190 STATUS: DESIREE BLEDSOE DR: MD Niharika Desai MD, MD _ SOURCE: URINE SPDESC: ORDERED: Urine Culture Procedure Result Reported Site Urine Culture Final 01/12/19- 1210 ML No Growth (<1,000 CFU/mL) * ML - Main Lab . END OF REPORT DEPARTMENT OF PATHOLOGY, [address] [place] [address] Ramírez Pires M.D. Director [facility] # [id number] 26 AM 8.7-22.4 PM <10 27 Normal Range 180 to 914 Indeterminate Range 145 to 180 Deficient Range <145 28 Estradiols <40 pg/mL are sent to a reference lab for low range testing. Postmenopausal Females < 20 Ovulating females: by day in cycle relative to LH Peak Follicular phase - 12 10-50 - 4 60-200 Mid-cycle - 1 120-375 Luteal phase + 2 50-155 + 6 60-260 + 12 15-115 29 Total 25-Hydroxyvitamin D2 and D3 (25-OH-VitD) <10 ng/mL (severe deficiency) 10-19 ng/mL (mild to moderate deficiency) 20-50 ng/mL (optimum levels) 51-80 ng/mL (increased risk of hypercalciuria) >80 ng/mL (toxicity possible) 30 Desirable: <150 Borderline High: 150-199 High: 200-499 Very High: >500 31 Desirable: <200 Borderline High: 200-239 High: >239 32 Low: <40 Desirable: 40-60 High: >60 33 Desirable: <100 Near Optimal: 100-129 Borderline High: 130-159 High: 160-189 Very High: >189 34 Because ethnic data is not always readily available, this report includes an eGFR for both -Americans and non- Americans. The National Kidney Disease Education Program (NKDEP) does not endorse the use of the MDRD equation for patients that are not between the ages of 18 and 70, are , have extremes of body size, muscle mass, or nutritional status, or are non- or non-. According to the National Kidney Foundation, irrespective of diagnosis, the stage of the disease is based on the level of kidney function: Stage Description GFR(mL/min/1.73 m(2)) 1 Kidney damage with normal or decreased GFR 90 2 Kidney damage with mild decrease in GFR 60-89 3 Moderate decrease in GFR 30-59 4 Severe decrease in GFR 15-29 5 Kidney failure <15 (or dialysis) 35 Standard intensity warfarin therapeutic range: 2.0-3.0 High intensity warfarin therapeutic range: 2.5-3.5 Procedures Description No Information Available Medical Devices Description No Information Available Encounters Type Date Location Provider Dx Diagnosis Office Visit 02/06/2019 Gastroenterology Viviana K59.9 Functional 1:30p [facility] MD Maddi intestinal disorder, unspecified Z93.1 Gastrostomy status Assessments Date Code Description Provider 02/06/2019 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
--- OUTSIDE RECORDS SUMMARY | 2019-03-23 20:46 | XMS REPORT | Continuity of Care Document ---
:1970 External Reference #:[id number] Author Name Viviana Linda MD Address [address] [place] [id number] Care Team Providers Name Role Phone Niharika Cortés MD Care Team Information Manager Latin [phone] Problems Description No Information Available Social History [...] Result H/L Range Note Laboratory test finding 01/11/2019 [facility] Pregnenolone 113 ng/dL 33-248 1 Dhea 5.2 ng/mL <8.0 2 Mycoplasma Pneumonia 01/11/2019 [facility] Mycoplasma Positive Abnormal Negative Igg/Igm pneumoniae IgG Ab Mycoplasma pneumoniae IgM Ab Negative Negative Mpneumoniae Ab Interpretation See Comment 3 Laboratory test finding 01/11/2019 [facility] Anti Nuclear Antibody 0.1 U 4 Iodine 96 ng/mL Abnormal 40-92 5 Homocysteine 5 mcmol/L 6 Estradiol, Confirmatory, S <10 pg/mL 7 Reverse T3 24 ng/dL 10-24 8 Lead 01/11/2019 [facility] Lead,Venous, B < 1.0 g/dL 0.0-4.9 9 Venous/Capillary Venous Submitting Laboratory Phone [phone] Laboratory test finding 01/11/2019 [facility] Copper, Serum 1.34 g/mL 0.75- 1.45 11 Selenium 158 ng/mL Abnormal 70-150 12 Zinc Serum 0.79 g/mL 0.66-1.10 13 Rosy Gomez Comprehensive 01/11/2019 [facility] Ebv Capsid Ag IgG Ab Positive Negative Ebv Capsid Ag IgM Ab Negative Negative Rosy-Gomez Nuclear Antigen Positive Negative Rosy-Gomez Virus Interp See Comment 14 Laboratory test finding 01/11/2019 [facility] Arsenic Whole Blood <1 ng/mL 0- 12 15 Cadmium Whole Blood 0.3 ng/mL 0.0-4.9 16 Mercury,Blood <1 ng/mL 0-9 17 Urine Culture And Sensitivities 01/11/2019 [facility] Urine Culture SEE RESULT BELOW 18 Urinalysis Profile 01/11/2019 [facility] Urine Color Portia Urine Appearance Clear Urine Specific Sheldon 1.009 Low 1.010-1.030 Urine pH 7.0 Normal 5-9 Urine Urobilinogen Negative Negative Urine Ketones 1+ Abnormal Negative Urine Protein Negative Negative Urine Leukocytes Negative Negative Urine Blood 2+ Abnormal Negative Urine Nitrite Negative Negative Urine Bilirubin Negative Negative Urine Glucose Negative Negative Urine White Blood Cell Trace(0-5/hpf) Absent Urine Red Blood Cell 2+(6-10/hpf) Abnormal Absent Urine Bacteria Absent Absent Laboratory test finding 01/11/2019 [facility] Uric Acid 4.7 mg/dL Normal 2.3- 6.6 Magnesium 2.0 mg/dL Normal 1.9-2.7 Iron (Fe) 148 g/dL Normal 50-212 CRP High Sensitivity 0.24 mg/L <2.00 TSH (Thyroid Stimulating Horm) 0.02 mcIU/mL Low 0.34-5.60 Free T3 4.20 pg/mL High 2.5-3.9 Cortisol 12.36 g/dL 19 Thyroxine 13.01 g/dL High 6.09-12.23 Total T3 124 ng/dL Normal 87-178 Thyroperoxidase AB 620.12 IU/mL High <9 Vitamin B12 1354 pg/mL High 180-914 20 Estradiol <40 pg/mL 21 Vitamin D Total 25(Oh) 39.8 ng/mL Normal 20-50 22 Erythrocyte Sed Rate 2 mm/Hr Normal 0-19 Thyroglobulin Antibody II 1.2 IU/mL <4.0 Free T4 1.46 ng/dL High 0.61-1.12 Lipid Profile (Trig/Chol/HDL) 01/11/2019 [facility] Triglycerides 63 mg/dL 23 Cholesterol 213 mg/dL 24 HDL Cholesterol 52.5 mg/dL 25 LDL Cholesterol 148 mg/dL 26 Comp Metabolic Panel 01/11/2019 [facility] Sodium 138 mmol/L Normal 135-145 Potassium 4.3 [...] Egfr Non- 115.1 >60 Egfr 139.2 >60 27 CBC Auto Diff 01/11/2019 [facility] White Blood Count 5.1 10^3/uL Normal 3.5- [...] Blood Cells % 0.0 Platelet Count 10/31/2018 [facility] Platelet Count 228 10^3/uL Normal 150-450 Mean Platelet Volume 8.9 fL Normal 7.4-10.4 Inr/Protime 10/31/2018 [facility] Inr 0.91 Normal 0.82-1.09 28 Laboratory test 10/31/2018 [facility] Partial Thrombo 36.7 seconds Normal 26.0- 38.0 finding Time PTT 1 ADDITIONAL INFORMATION This test was developed and its performance characteristics determined by [facility] in a manner consistent with CLIA requirements. This test has not been cleared or approved by the U.S. Food and Drug Administration. Test Performed by: [facility] [place] [address] Supervisor Component Assembler: Elvin Sands M.D. Ph.D.; CLIA# [id number] 2 ADDITIONAL INFORMATION This test was developed and its performance characteristics determined by [facility] in a manner consistent with CLIA requirements. This test has not been cleared or approved by the U.S. Food and Drug Administration. Test Performed by: [facility] [place] [address] Supervisor Component Assembler: Elvin Sands M.D. Ph.D.; CLIA# [id number] 3 RESULT: Results suggest past exposure. ADDITIONAL INFORMATION This test has been modified from the white sugar syrup operator's instructions. Its performance characteristics were determined by [facility] in a manner consistent with CLIA requirements. This test has not been cleared or approved by the U.S. Food and Drug Administration. Test Performed by: [facility] [place] [address] Supervisor Component Assembler: Elvin Sands M.D. Ph.D.; CLIA# [id number] 4 REFERENCE VALUE <=1.0 (Negative) Test Performed by: [facility] [place] [address] Supervisor Component Assembler: Elvin Sands M.D. Ph.D.; CLIA# [id number] 5 ADDITIONAL INFORMATION This test was developed and its performance characteristics determined by [facility] in a manner consistent with CLIA requirements. This test has not been cleared or approved by the U.S. Food and Drug Administration. Test Performed by: [facility] [place] [address] Supervisor Component Assembler: Elvin Sands M.D. Ph.D.; CLIA# [id number] 6 REFERENCE VALUE <=13 (Fasting) ADDITIONAL INFORMATION This test was developed and its performance characteristics determined by [facility] in a manner consistent with CLIA requirements. This test has not been cleared or approved by the U.S. Food and Drug Administration. Test Performed by: [facility] - [address] [address] Supervisor Component Assembler: Elvin Sands M.D. Ph.D.; CLIA# [id number] 7 REFERENCE VALUE Premenopausal: 15-350 (E2 levels vary widely through the menstrual cycle.) Postmenopausal: <10 ADDITIONAL INFORMATION This test was developed and its performance characteristics determined by [facility] in a manner consistent with CLIA requirements. This test has not been cleared or approved by the U.S. Food and Drug Administration. Test Performed by: [facility] [place] [address] Supervisor Component Assembler: Elvin Sands M.D. Ph.D.; CLIA# [id number] 8 ADDITIONAL INFORMATION This test was developed and its performance characteristics determined by [facility] in a manner consistent with CLIA requirements. This test has not been cleared or approved by the U.S. Food and Drug Administration. Test Performed by: [facility] [place] [address] Supervisor Component Assembler: Elvin Sands M.D. Ph.D.; CLIA# [id number] 9 ADDITIONAL INFORMATION Testing performed by Inductively Coupled Plasma-Mass Spectrometry (ICP-MS). This test was developed and its performance characteristics determined by [facility] in a manner consistent with CLIA requirements. This test has not been cleared or approved by the U.S. Food and Drug Administration. 10 Test Performed by: [facility] [place] [address] Supervisor Component Assembler: Elvin Sands M.D. Ph.D.; CLIA# [id number] 11 ADDITIONAL INFORMATION This test was developed and its performance characteristics determined by [facility] in a manner consistent with CLIA requirements. This test has not been cleared or approved by the U.S. Food and Drug Administration. Test Performed by: [facility] [place] [address] Supervisor Component Assembler: Elvin Sands M.D. Ph.D.; CLIA# [id number] 12 ADDITIONAL INFORMATION This test was developed and its performance characteristics determined by [facility] in a manner consistent with CLIA requirements. This test has not been cleared or approved by the U.S. Food and Drug Administration. Test Performed by: [facility] [place] [address] Supervisor Component Assembler: Elvin Sands M.D. Ph.D.; CLIA# [id number] 13 ADDITIONAL INFORMATION This test was developed and its performance characteristics determined by [facility] in a manner consistent with CLIA requirements. This test has not been cleared or approved by the U.S. Food and Drug Administration. Test Performed by: [facility] [place] [address] Supervisor Component Assembler: Elvin Sands M.D. Ph.D.; CLIA# [id number] 14 RESULT: Results suggest past infection. ADDITIONAL INFORMATION [...] primary infection with EBV. Test Performed by: [facility] [place] [address] Supervisor Component Assembler: Elvin Sands M.D. Ph.D.; CLIA# [id number] 15 ADDITIONAL INFORMATION This test was developed and its performance characteristics determined by [facility] in a manner consistent with CLIA requirements. This test has not been cleared or approved by the U.S. Food and Drug Administration. Test Performed by: [facility] [place] [address] Supervisor Component Assembler: Elvin Sands M.D. Ph.D.; CLIA# [id number] 16 ADDITIONAL INFORMATION This test was developed and its performance characteristics determined by [facility] in a manner consistent with CLIA requirements. This test has not been cleared or approved by the U.S. Food and Drug Administration. Test Performed by: [facility] [place] [address] Supervisor Component Assembler: Elvin Sands M.D. Ph.D.; CLIA# [id number] 17 ADDITIONAL INFORMATION This test was developed and its performance characteristics determined by [facility] in a manner consistent with CLIA requirements. This test has not been cleared or approved by the U.S. Food and Drug Administration. Test Performed by: [facility] [place] [address] Supervisor Component Assembler: Elvin Sands M.D. Ph.D.; CLIA# [id number] 18 SEE RESULT BELOW Name: MELA MIX : [address]: Malinda Bonilla MD Acct: [id number] Unit: [id number] AGE: 49 Location: LAB Re01/11/19 SEX: F Status: REG REF SPEC: [id number] SOMMER: 01/11/[address] [facility] [address]: Malinda Bonilla MD REQ: [id number] RECD: 01/11/19 STATUS: DESIREE BLEDSOE DR: MD Niharika Desai MD, MD _ SOURCE: URINE SPDESC: ORDERED: Urine Culture Procedure Result Reported Site Urine Culture Final 01/12/19- 1210 ML No Growth (<1,000 CFU/mL) * ML - Main Lab . END OF REPORT DEPARTMENT OF PATHOLOGY, [address] [place] [address] Ramírez Pires M.D. Director [facility] # [id number] 19 AM 8.7-22.4 PM <10 20 Normal Range 180 to 914 Indeterminate Range 145 to 180 Deficient Range <145 21 Estradiols <40 pg/mL are sent to a reference lab for low range testing. Postmenopausal Females < 20 Ovulating females: by day in cycle relative to LH Peak Follicular phase - 12 10-50 - 4 60-200 Mid-cycle - 1 120-375 Luteal phase + 2 50-155 + 6 60-260 + 12 15-115 22 Total 25-Hydroxyvitamin D2 and D3 (25-OH-VitD) <10 ng/mL (severe deficiency) 10-19 ng/mL (mild to moderate deficiency) 20-50 ng/mL (optimum levels) 51-80 ng/mL (increased risk of hypercalciuria) >80 ng/mL (toxicity possible) 23 Desirable: <150 Borderline High: 150-199 High: 200-499 Very High: >500 24 Desirable: <200 Borderline High: 200-239 High: >239 25 Low: <40 Desirable: 40-60 High: >60 26 Desirable: <100 Near Optimal: 100-129 Borderline High: 130-159 High: 160-189 Very High: >189 27 Because ethnic data is not always readily [...] 15-29 5 Kidney failure <15 (or dialysis) 28 Standard intensity warfarin therapeutic range: 2.0-3.0 High intensity warfarin therapeutic range: 2.5-3.5 Procedures Description No Information Available Medical Devices Description No Information Available Encounters Description No Information Available Assessments Date Code Description Provider 02/06/2019 K59.9 Functional intestinal disorder, unspecified Viviana Dean MD 02/06/2019 Z93.1 Gastrostomy status Viviana Linda MD Plan of Treatment No Information Available Functional Status Description No Information Available Mental Status Description No Information Available Referrals Description No Information Available
--- OUTSIDE RECORDS SUMMARY | 2019-03-23 20:46 | XMS REPORT | Continuity of Care Document ---
:1970 External Reference #:[id number] Author Care Team Providers Name Role Phone Niharika Cortés MD Care Team Information [employer] [phone] Problems Description No Information Available Social History [...] H/L Range Note Laboratory test finding 03/01/2019 [facility] [place] Iron (Fe) 62 g/dL Normal 50-212 Thyroxine 6.96 g/dL Normal 6.09-12.23 TSH (Thyroid Stim Horm) 8.24 mcIU/mL High 0.34-5.60 Free T4 (Free Thyroxine) 0.80 ng/dL Normal 0.61-1.12 T3 Free 2.90 pg/mL Normal 2.5-3.9 T3 Total 96 ng/dL Normal 87-178 Thyroperoxidase AB 836.26 IU/mL High <9 Vitamin B12 1095 pg/mL High 180-914 1 Thyroglobulin Antibody 1.3 IU/mL <4.0 CBC Auto Diff 03/01/2019 [facility] [place] [facility] White Blood Count 4.1 10^3/uL Normal 3.5- [...] Cells % 0.0 Laboratory test finding 03/01/2019 [facility] [place] [facility] Anti Nuclear Antibody 0.1 U 2 Iodine 116 ng/mL Abnormal 40-92 3 Copper, Serum 1.06 g/mL 0.75-1.45 4 Selenium 151 ng/mL Abnormal 70-150 5 Zinc Serum 0.52 g/mL Abnormal 0.66-1.10 6 Reverse T3 11 ng/dL 10 7 Laboratory test finding 01/11/2019 [facility] [place] Pregnenolone 113 ng/dL 33-248 8 Dhea 5.2 ng/mL <8.0 9 Mycoplasma Pneumonia 01/11/2019 [facility] [place] Mycoplasma Positive Abnormal Negative Igg/Igm pneumoniae IgG Ab Mycoplasma pneumoniae IgM Ab Negative Negative Mpneumoniae Ab Interpretation See Comment 10 Laboratory test finding 01/11/2019 [facility] [place] Anti Nuclear Antibody 0.1 U 11 Iodine 96 ng/mL Abnormal 40-92 12 Homocysteine 5 mcmol/L 13 Estradiol, Confirmatory, S <10 pg/mL 14 Reverse T3 24 ng/dL 10-24 15 Lead 01/11/2019 [facility] [place] Lead,Venous, B < 1.0 g/dL 0.0-4.9 16 Venous/Capillary Venous Submitting Laboratory Phone [phone] Laboratory test finding 01/11/2019 [facility] [place] [facility] Copper, Serum 1.34 g/mL 0.75- 1.45 18 Selenium 158 ng/mL Abnormal 70-150 19 Zinc Serum 0.79 g/mL 0.66-1.10 20 Rosy Gomez Comprehensive 01/11/2019 [facility] [place] Ebv Capsid Ag IgG Ab Positive Negative Ebv Capsid Ag IgM Ab Negative Negative Rosy-Gomez Nuclear Antigen Positive Negative Rosy-Gmoez Virus Interp See Comment 21 Laboratory test finding 01/11/2019 [facility] [place] [facility] Arsenic Whole Blood <1 ng/mL 0- 12 22 Cadmium Whole Blood 0.3 ng/mL 0.0-4.9 23 Mercury,Blood <1 ng/mL 0-9 24 Urine Culture And Sensitivities 01/11/2019 [facility] [place] Urine Culture SEE RESULT BELOW 25 Urinalysis Profile 01/11/2019 [facility] [place] Urine Color Portia Urine Appearance Clear Urine Specific Mobile 1.009 Low 1.010-1.030 Urine pH 7.0 Normal 5-9 Urine Urobilinogen Negative Negative Urine Ketones 1+ Abnormal Negative Urine Protein Negative Negative Urine Leukocytes Negative Negative Urine Blood 2+ Abnormal Negative Urine Nitrite Negative Negative Urine Bilirubin Negative Negative Urine Glucose Negative Negative Urine White Blood Cell Trace(0-5/hpf) Absent Urine Red Blood Cell 2+(6-10/hpf) Abnormal Absent Urine Bacteria Absent Absent Laboratory test finding 01/11/2019 [facility] [place] Uric Acid 4.7 mg/dL Normal 2.3- 6.6 [...] ng/dL High 0.61-1.12 Lipid Profile (Trig/Chol/HDL) 01/11/2019 [facility] [place] Triglycerides 63 mg/dL 30 Cholesterol 213 mg/dL 31 HDL Cholesterol 52.5 mg/dL 32 LDL Cholesterol 148 mg/dL 33 Comp Metabolic Panel 01/11/2019 [facility] Sodium 138 mmol/L Normal 135-145 Potassium 4.3 [...] 139.2 >60 34 CBC Auto Diff 01/11/2019 [facility] [place] White Blood Count 5.1 10^3/uL Normal 3.5- [...] Blood Cells % 0.0 Platelet Count 10/31/2018 [facility] [place] Platelet Count 228 10^3/uL Normal 150-450 Mean Platelet Volume 8.9 fL Normal 7.4-10.4 Inr/Protime 10/31/2018 [facility] Inr 0.91 Normal 0.82-1.09 35 Laboratory test 10/31/2018 [facility] [place] [facility] Partial Thrombo 36.7 seconds Normal 26.0- 38.0 finding Time PTT 1 Normal Range 180 to 914 Indeterminate Range 145 to 180 Deficient Range <145 2 REFERENCE VALUE <=1.0 (Negative) Test Performed by: [facility] [address] Schedule Maker: Elvin Sands M.D. Ph.D.; CLIA# [id number] 3 ADDITIONAL INFORMATION This test was developed and its performance characteristics determined by [facility] in a manner consistent with CLIA requirements. This test has not been cleared or approved by the U.S. Food and Drug Administration. Test Performed by: [facility] [address] Schedule Maker: Elvin Sands M.D. Ph.D.; CLIA# [id number] 4 ADDITIONAL INFORMATION This test was developed and its performance characteristics determined by [facility] in a manner consistent with CLIA requirements. This test has not been cleared or approved by the U.S. Food and Drug Administration. Test Performed by: [facility] [address] Schedule Maker: Elvin Sands M.D. Ph.D.; CLIA# [id number] 5 ADDITIONAL INFORMATION This test was developed and its performance characteristics determined by [facility] in a manner consistent with CLIA requirements. This test has not been cleared or approved by the U.S. Food and Drug Administration. Test Performed by: [facility] [address] Schedule Maker: Elvin Sands M.D. Ph.D.; CLIA# [id number] 6 ADDITIONAL INFORMATION This test was developed and its performance characteristics determined by [facility] in a manner consistent with CLIA requirements. This test has not been cleared or approved by the U.S. Food and Drug Administration. Test Performed by: [facility] [address] Schedule Maker: Elvin Sands M.D. Ph.D.; CLIA# [id number] 7 ADDITIONAL INFORMATION This test was developed and its performance characteristics determined by [facility] in a manner consistent with CLIA requirements. This test has not been cleared or approved by the U.S. Food and Drug Administration. Test Performed by: [facility] [address] Schedule Maker: Elvin Sands M.D. Ph.D.; CLIA# [id number] 8 ADDITIONAL INFORMATION This test was developed and its performance characteristics determined by [facility] in a manner consistent with CLIA requirements. This test has not been cleared or approved by the U.S. Food and Drug Administration. Test Performed by: [facility] [address] Schedule Maker: Elvin Sands M.D. Ph.D.; CLIA# [id number] 9 ADDITIONAL INFORMATION This test was developed and its performance characteristics determined by [facility] in a manner consistent with CLIA requirements. This test has not been cleared or approved by the U.S. Food and Drug Administration. Test Performed by: [facility] [address] Schedule Maker: Elvin Sands M.D. Ph.D.; CLIA# [id number] 10 RESULT: Results suggest past exposure. ADDITIONAL INFORMATION This test has been modified from the guest experience manager's instructions. Its performance characteristics were determined by [facility] in a manner consistent with CLIA requirements. This test has not been cleared or approved by the U.S. Food and Drug Administration. Test Performed by: [facility] [address] Schedule Maker: Elvin Sands M.D. Ph.D.; CLIA# [id number] 11 REFERENCE VALUE <=1.0 (Negative) Test Performed by: [facility] [address] Schedule Maker: Elvin Sands M.D. Ph.D.; CLIA# [id number] 12 ADDITIONAL INFORMATION This test was developed and its performance characteristics determined by [facility] in a manner consistent with CLIA requirements. This test has not been cleared or approved by the U.S. Food and Drug Administration. Test Performed by: [facility] [address] Schedule Maker: Elvin Sands M.D. Ph.D.; CLIA# [id number] 13 REFERENCE VALUE <=13 (Fasting) ADDITIONAL INFORMATION This test was developed and its performance characteristics determined by [facility] in a manner consistent with CLIA requirements. This test has not been cleared or approved by the U.S. Food and Drug Administration. Test Performed by: [facility] [address] Schedule Maker: Elvin Sands M.D. Ph.D.; CLIA# [id number] 14 REFERENCE VALUE Premenopausal: 15-350 (E2 levels vary widely through the menstrual cycle.) Postmenopausal: <10 ADDITIONAL INFORMATION This test was developed and its performance characteristics determined by [facility] in a manner consistent with CLIA requirements. This test has not been cleared or approved by the U.S. Food and Drug Administration. Test Performed by: [facility] [address] Schedule Maker: Elvin Sands M.D. Ph.D.; CLIA# [id number] 15 ADDITIONAL INFORMATION This test was developed and its performance characteristics determined by [facility] in a manner consistent with CLIA requirements. This test has not been cleared or approved by the U.S. Food and Drug Administration. Test Performed by: [facility] [address] Schedule Maker: Elvin Sands M.D. Ph.D.; CLIA# [id number] 16 ADDITIONAL INFORMATION Testing performed by Inductively Coupled Plasma-Mass Spectrometry (ICP-MS). This test was developed and its performance characteristics determined by [facility] in a manner consistent with CLIA requirements. This test has not been cleared or approved by the U.S. Food and Drug Administration. 17 Test Performed by: [facility] [address] Schedule Maker: Elvin Sands M.D. Ph.D.; CLIA# [id number] 18 ADDITIONAL INFORMATION This test was developed and its performance characteristics determined by [facility] in a manner consistent with CLIA requirements. This test has not been cleared or approved by the U.S. Food and Drug Administration. Test Performed by: [facility] [address] Schedule Maker: Elvin Sands M.D. Ph.D.; CLIA# [id number] 19 ADDITIONAL INFORMATION This test was developed and its performance characteristics determined by [facility] in a manner consistent with CLIA requirements. This test has not been cleared or approved by the U.S. Food and Drug Administration. Test Performed by: [facility] [place] [address] Schedule Maker: Elvin Sands M.D. Ph.D.; CLIA# [id number] 20 ADDITIONAL INFORMATION This test was developed and its performance characteristics determined by [facility] in a manner consistent with CLIA requirements. This test has not been cleared or approved by the U.S. Food and Drug Administration. Test Performed by: [facility] [place] [address] Schedule Maker: Elvin Sands M.D. Ph.D.; CLIA# [id number] 21 RESULT: Results suggest past infection. ADDITIONAL [...] primary infection with EBV. Test Performed by: [facility] [address] Schedule Maker: Elvin Sands M.D. Ph.D.; CLIA# [id number] 22 ADDITIONAL INFORMATION This test was developed and its performance characteristics determined by [facility] in a manner consistent with CLIA requirements. This test has not been cleared or approved by the U.S. Food and Drug Administration. Test Performed by: [facility] [place] [address] Schedule Maker: Elvin Sands M.D. Ph.D.; CLIA# [id number] 23 ADDITIONAL INFORMATION This test was developed and its performance characteristics determined by [facility] in a manner consistent with CLIA requirements. This test has not been cleared or approved by the U.S. Food and Drug Administration. Test Performed by: [facility] [place] [address] Schedule Maker: Elvin Sands M.D. Ph.D.; CLIA# [id number] 24 ADDITIONAL INFORMATION This test was developed and its performance characteristics determined by [facility] in a manner consistent with CLIA requirements. This test has not been cleared or approved by the U.S. Food and Drug Administration. Test Performed by: [facility] [address] [place] [address] Schedule Maker: Elvin Sands M.D. Ph.D.; CLIA# [id number] 25 SEE RESULT BELOW Name: MELA MIX : [address]: Malinda Bonilla MD Acct: [id number] Unit: [id number] AGE: 49 Location: LAB Re01/11/19 SEX: F Status: REG REF SPEC: [id number] SOMMER: 01/11/198 [facility] DR: Malinda Bonilla MD REQ: [id number] RECD: 01/11/19 STATUS: DESIREE BLEDSOE DR: MD Niharika Desai MD, MD _ SOURCE: URINE SPDESC: ORDERED: Urine Culture Procedure Result Reported Site Urine Culture Final 01/12/19- 1210 ML No Growth (<1,000 CFU/mL) * ML - Main Lab . END OF REPORT DEPARTMENT OF PATHOLOGY, [address] [place] [address] Ramírez Pires M.D. 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 Functional 1:30p [facility] MD Maddi intestinal disorder, unspecified Z93.1 Gastrostomy status Assessments Date Code Description Provider 02/06/2019 K59.9 Functional intestinal disorder, unspecified Viviana Dean MD 02/06/2019 Z93.1 Gastrostomy status Viviana Linda MD Plan of Treatment Future Appointment(s):05/01/2019 11:00 am - Viviana Linda MD at Gastroenterology [facility]02/06/2019 - Viviana Linda MDK59.9 Functional intestinal disorder, dldcxlagjnhN89.1 Gastrostomy status Functional Status Description No Information Available Mental Status Description No Information Available Referrals Description No Information Available
--- OUTSIDE RECORDS SUMMARY | 2019-03-23 20:46 | XMS REPORT | Continuity of Care Document ---
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 [phone] Problems Description No Information Available Social History [...] H/L Range Note Laboratory test finding 03/01/2019 [facility] Iron (Fe) 62 g/dL Normal 50-212 Thyroxine 6.96 g/dL Normal 6.09-12.23 TSH (Thyroid Stim Horm) 8.24 mcIU/mL High 0.34-5.60 Free T4 (Free Thyroxine) 0.80 ng/dL Normal 0.61-1.12 T3 Free 2.90 pg/mL Normal 2.5-3.9 T3 Total 96 ng/dL Normal 87-178 Thyroperoxidase AB 836.26 IU/mL High <9 Vitamin B12 1095 pg/mL High 180-914 1 Thyroglobulin Antibody 1.3 IU/mL <4.0 CBC Auto Diff 03/01/2019 [facility] White Blood Count 4.1 10^3/uL Normal 3.5- [...] Cells % 0.0 Laboratory test finding 03/01/2019 [facility] Anti Nuclear Antibody 0.1 U 2 Iodine 116 ng/mL Abnormal 40-92 3 Copper, Serum 1.06 g/mL 0.75-1.45 4 Selenium 151 ng/mL Abnormal 70-150 5 Zinc Serum 0.52 g/mL Abnormal 0.66-1.10 6 Reverse T3 11 ng/dL 10 7 Laboratory test finding 01/11/2019 [facility] Pregnenolone 113 ng/dL 33-248 8 Dhea 5.2 ng/mL <8.0 9 Mycoplasma Pneumonia 01/11/2019 [facility] Mycoplasma Positive Abnormal Negative Igg/Igm pneumoniae IgG Ab Mycoplasma pneumoniae IgM Ab Negative Negative Mpneumoniae Ab Interpretation See Comment 10 Laboratory test finding 01/11/2019 [facility] Anti Nuclear Antibody 0.1 U 11 Iodine 96 ng/mL Abnormal 40-92 12 Homocysteine 5 mcmol/L 13 Estradiol, Confirmatory, S <10 pg/mL 14 Reverse T3 24 ng/dL 10-24 15 Lead 01/11/2019 [facility] Lead,Venous, B < 1.0 g/dL 0.0-4.9 16 Venous/Capillary Venous Submitting Laboratory Phone [phone] Laboratory test finding 01/11/2019 [facility] Copper, Serum 1.34 g/mL 0.75- 1.45 18 Selenium 158 ng/mL Abnormal 70-150 19 Zinc Serum 0.79 g/mL 0.66-1.10 20 Rosy Gomez Comprehensive 01/11/2019 [facility] Ebv Capsid Ag IgG Ab Positive Negative Ebv Capsid Ag IgM Ab Negative Negative Rosy-Gomez Nuclear Antigen Positive Negative Rosy-Gomez Virus Interp See Comment 21 Laboratory test finding 01/11/2019 [facility] Arsenic Whole Blood <1 ng/mL 0- 12 22 Cadmium Whole Blood 0.3 ng/mL 0.0-4.9 23 Mercury,Blood <1 ng/mL 0-9 24 Urine Culture And Sensitivities 01/11/2019 [facility] Urine Culture SEE RESULT BELOW 25 Urinalysis Profile 01/11/2019 [facility] Urine Color Portia Urine Appearance Clear Urine Specific Eads 1.009 Low 1.010-1.030 Urine pH 7.0 Normal 5-9 Urine Urobilinogen Negative Negative Urine Ketones 1+ Abnormal Negative Urine Protein Negative Negative Urine Leukocytes Negative Negative Urine Blood 2+ Abnormal Negative Urine Nitrite Negative Negative Urine Bilirubin Negative Negative Urine Glucose Negative Negative Urine White Blood Cell Trace(0-5/hpf) Absent Urine Red Blood Cell 2+(6-10/hpf) Abnormal Absent Urine Bacteria Absent Absent Laboratory test finding 01/11/2019 [facility] Uric Acid 4.7 mg/dL Normal 2.3- 6.6 [...] ng/dL High 0.61-1.12 Lipid Profile (Trig/Chol/HDL) 01/11/2019 [facility] Triglycerides 63 mg/dL 30 Cholesterol 213 mg/dL [...] 139.2 >60 34 CBC Auto Diff 01/11/2019 [facility] White Blood Count 5.1 10^3/uL Normal 3.5- [...] Blood Cells % 0.0 Platelet Count 10/31/2018 [facility] Platelet Count 228 10^3/uL Normal 150-450 Mean Platelet Volume 8.9 fL Normal 7.4-10.4 Inr/Protime 10/31/2018 [facility] Inr 0.91 Normal 0.82-1.09 35 Laboratory test 10/31/2018 [facility] Partial Thrombo 36.7 seconds Normal 26.0- 38.0 finding Time PTT 1 Normal Range 180 to 914 Indeterminate Range 145 to 180 Deficient Range <145 2 REFERENCE VALUE <=1.0 (Negative) Test Performed by: [facility] [place] [address] Project Officer: Elvin Sands M.D. Ph.D.; CLIA# [id number] 3 ADDITIONAL INFORMATION This test was developed and its performance characteristics determined by [facility] in a manner consistent with CLIA requirements. This test has not been cleared or approved by the U.S. Food and Drug Administration. Test Performed by: [facility] [place] [address] Project Officer: Elvin Sands M.D. Ph.D.; CLIA# [id number] 4 ADDITIONAL INFORMATION This test was developed and its performance characteristics determined by [facility] in a manner consistent with CLIA requirements. This test has not been cleared or approved by the [place].S. Food and Drug Administration. Test Performed by: [facility] [place] [address] Project Officer: Elvin Sands M.D. Ph.D.; CLIA# [id number] 5 ADDITIONAL INFORMATION This test was developed and its performance characteristics determined by [facility] in a manner consistent with CLIA requirements. This test has not been cleared or approved by the U.S. Food and Drug Administration. Test Performed by: [facility] [place] [address] Project Officer: Elvin Sands M.D. Ph.D.; CLIA# [id number] 6 ADDITIONAL INFORMATION This test was developed and its performance characteristics determined by [facility] in a manner consistent with CLIA requirements. This test has not been cleared or approved by the U.S. Food and Drug Administration. Test Performed by: [facility] [place] [address] Project Officer: Elvin Sands M.D. Ph.D.; CLIA# [id number] 7 ADDITIONAL INFORMATION This test was developed and its performance characteristics determined by [facility] in a manner consistent with CLIA requirements. This test has not been cleared or approved by the U.S. Food and Drug Administration. Test Performed by: [facility] [place] [address] Project Officer: Elvin Sands M.D. Ph.D.; CLIA# [id number] 8 ADDITIONAL INFORMATION This test was developed and its performance characteristics determined by [facility] in a manner consistent with CLIA requirements. This test has not been cleared or approved by the [place].S. Food and Drug Administration. Test Performed by: [facility] [place] [address] Project Officer: Elvin Sands M.D. Ph.D.; CLIA# [id number] 9 ADDITIONAL INFORMATION This test was developed and its performance characteristics determined by [facility] in a manner consistent with CLIA requirements. This test has not been cleared or approved by the U.S. Food and Drug Administration. Test Performed by: [facility] [place] [address] Project Officer: Elvin Sands M.D. Ph.D.; CLIA# [id number] 10 RESULT: Results suggest past exposure. ADDITIONAL INFORMATION This test has been modified from the regional guide's instructions. Its performance characteristics were determined by [facility] in a manner consistent with CLIA requirements. This test has not been cleared or approved by the U.S. Food and Drug Administration. Test Performed by: [facility] [place] [address] Project Officer: Elvin Sands M.D. Ph.D.; CLIA# [id number] 11 REFERENCE VALUE <=1.0 (Negative) Test Performed by: [facility] [place] [address] Project Officer: Elvin Sands M.D. Ph.D.; CLIA# [id number] 12 ADDITIONAL INFORMATION This test was developed and its performance characteristics determined by [facility] in a manner consistent with CLIA requirements. This test has not been cleared or approved by the U.S. Food and Drug Administration. Test Performed by: [facility] [place] [address] Project Officer: Elvin Sands M.D. Ph.D.; CLIA# [id number] 13 REFERENCE VALUE <=13 (Fasting) ADDITIONAL INFORMATION This test was developed and its performance characteristics determined by [facility] in a manner consistent with CLIA requirements. This test has not been cleared or approved by the U.S. Food and Drug Administration. Test Performed by: [facility] [place] [address] Project Officer: Elvin Sands M.D. Ph.D.; CLIA# [id number] 14 REFERENCE VALUE Premenopausal: 15-350 (E2 levels vary widely through the menstrual cycle.) Postmenopausal: <10 ADDITIONAL INFORMATION This test was developed and its performance characteristics determined by [facility] in a manner consistent with CLIA requirements. This test has not been cleared or approved by the U.S. Food and Drug Administration. Test Performed by: [facility] [place] [address] Project Officer: Elvin Sands M.D. Ph.D.; CLIA# [id number] 15 ADDITIONAL INFORMATION This test was developed and its performance characteristics determined by [facility] in a manner consistent with CLIA requirements. This test has not been cleared or approved by the [place].S. Food and Drug Administration. Test Performed by: [facility] [place] [address] Project Officer: Elvin Sands M.D. Ph.D.; CLIA# [id number] 16 ADDITIONAL INFORMATION Testing performed by Inductively Coupled Plasma-Mass Spectrometry (ICP-MS). This test was developed and its performance characteristics determined by [facility] in a manner consistent with CLIA requirements. This test has not been cleared or approved by the U.S. Food and Drug Administration. 17 Test Performed by: [facility] [place] [address] Project Officer: Elvin Sands M.D. Ph.D.; CLIA# [id number] 18 ADDITIONAL INFORMATION This test was developed and its performance characteristics determined by [facility] in a manner consistent with CLIA requirements. This test has not been cleared or approved by the U.S. Food and Drug Administration. Test Performed by: [facility] [place] [address] Project Officer: Elvin Sands M.D. Ph.D.; CLIA# [id number] 19 ADDITIONAL INFORMATION This test was developed and its performance characteristics determined by [facility] in a manner consistent with CLIA requirements. This test has not been cleared or approved by the U.S. Food and Drug Administration. Test Performed by: [facility] [place] [address] Project Officer: Elvin Sands M.D. Ph.D.; CLIA# [id number] 20 ADDITIONAL INFORMATION This test was developed and its performance characteristics determined by [facility] in a manner consistent with CLIA requirements. This test has not been cleared or approved by the U.S. Food and Drug Administration. Test Performed by: [facility] [place] [address] Project Officer: Elvin Sands M.D. Ph.D.; CLIA# [id number] 21 RESULT: Results suggest past infection. ADDITIONAL [...] primary infection with EBV. Test Performed by: [facility] [place] [address] Project Officer: Elvin Sands M.D. Ph.D.; CLIA# [id number] 22 ADDITIONAL INFORMATION This test was developed and its performance characteristics determined by [facility] in a manner consistent with CLIA requirements. This test has not been cleared or approved by the U.S. Food and Drug Administration. Test Performed by: [facility] [place] [address] Project Officer: Elvin Sands M.D. Ph.D.; CLIA# [id number] 23 ADDITIONAL INFORMATION This test was developed and its performance characteristics determined by [facility] in a manner consistent with CLIA requirements. This test has not been cleared or approved by the U.S. Food and Drug Administration. Test Performed by: [facility] [place] [address] Project Officer: Elvin Sands M.D. Ph.D.; CLIA# [id number] 24 ADDITIONAL INFORMATION This test was developed and its performance characteristics determined by [facility] in a manner consistent with CLIA requirements. This test has not been cleared or approved by the U.S. Food and Drug Administration. Test Performed by: [facility] [address] [place] [address] Project Officer: Elvin Sands M.D. Ph.D.; CLIA# [id number] 25 SEE RESULT BELOW Name: MELA MIX : [address]: Malinda Bonilla MD Acct: [id number] Unit: [id number] AGE: 49 Location: LAB Re01/11/19 SEX: F Status: REG REF SPEC: [id number] SOMMER: 01/11/[address] [facility] [address]: Malinda Bonilla MD REQ: [id number] RECD: 01/11/19 STATUS: DESIREE BLEDSOE DR: MD Niharika Desai MD, MD _ SOURCE: URINE SPDESC: ORDERED: Urine Culture Procedure Result Reported Site Urine Culture Final 01/12/19- 1210 ML No Growth (<1,000 CFU/mL) * ML - Main Lab . END OF REPORT DEPARTMENT OF PATHOLOGY, [address] [place] [address] Ramírez Pires M.D. 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
--- NOTE | 2019-03-23 21:15 | ED ---
GI/ HPI - HPI Summary HPI Summary: Patient is a 39 y/o F presenting to [facility] with complaints of pain above her PEG tube. She states that she has been experiencing decreased appetite for the past few years as a result of a reaction to antibiotics she had previously taken. As a result, patient has required her feeding tube. She states that she had a tube change approximately three weeks ago. Patient states that she had an area of bruising around the site after the procedure. Patient reports bleeding from the site and began to have worse and sharp pain at the PEG tube site 1-2 days ago. Movement exacerbates her pain. On triage, pain is rated 8/10. She also notes that she had been experiencing constipation for some time and had a stool test done. Test was positive for infection, patient had started taking Keflex three days ago. Home medications and allergies are reviewed. - History of Current Complaint Chief Complaint: EDAbdPain Time Seen by Provider: 03/23/19 20:56 Stated Complaint: ABD PAIN PER PT Hx Obtained From: Patient Onset/Duration: Started Days Ago, Still Present Timing: Lasting Days Severity: Severe Current Severity: Severe Pain Intensity: 8 Location of Pain: Other - PEG tube site Associated Signs and Symptoms: Positive: Other: - pain at PEG tube site. Negative: Fever Aggravating Factor(s): Movement, Movement - Additional Pertinent History Primary Care Physician: ABHIJEET - Allergy/Home Medications Allergies/Adverse Reactions: Allergies Allergy/AdvReac Type Severity Reaction Status Date / Time metronidazole [From Flagyl] Allergy Unknown Verified 03/23/19 20:37 Reaction Details gluten AdvReac Mild GI Upset Verified 03/23/19 20:37 PMH/Surg Hx/FS Hx/Imm Hx Endocrine/Hematology History: Reports: Other Endocrine/Hematological Disorders - CFS Denies: Hx Diabetes, Hx Thyroid Disease Cardiovascular History: Denies: Hx Hypertension, Hx Pacemaker/ICD Respiratory History: Denies: Hx Asthma, Hx Chronic Obstructive Pulmonary Disease (COPD) GI History: Reports: Other GI Disorders - Gastroparesis Denies: Hx Ulcer History: Denies: Hx Dialysis, Hx Renal Disease Musculoskeletal History: Reports: Hx Fibromyalgia Sensory History: Reports: Hx Contacts or Glasses Denies: Hx Hearing Aid Opthamlomology History: Reports: Hx Contacts or Glasses Psychiatric History: Reports: Hx Depression Denies: Hx Panic Disorder - Cancer History Cancer Type, Location and Year: None reported - Surgical History Surgery Procedure, Year, and Place: 1987 - Lt FOREARM W/ PLATE. 04/2018 INSERTED FEEDING TUBE Infectious Disease History: No Infectious Disease History: Denies: Hx Clostridium Difficile, Hx Hepatitis, Hx Human Immunodeficiency Virus (HIV), Hx of Known/Suspected MRSA, Hx Shingles, Hx Tuberculosis, Hx Known/ Suspected VRE, Hx Known/Suspected VRSA, History Other Infectious Disease, Traveled Outside the [place] in Last 30 Days - Family History Known Family History: Negative: Hypertension, Respiratory Disease, Seizure Disorder - Social History Alcohol Use: None Substance Use Type: Reports: None Smoking Status (MU): Never Smoked Tobacco Review of Systems Negative: Fever - on vitals, temp is 98.3 F Gastrointestinal: Other - positive - pain at PEG tube site, decreased appetite All Other Systems Reviewed And Are Negative: Yes Physical Exam - Summary Physical Exam Summary: Appearance: Well-appearing, slender, lying in bed comfortably in no acute distress Skin: Warm, dry, no obvious rash Eyes: sclera anicteric, no conjunctival pallor ENT: mucous membranes moist, pharynx appears normal Neck: Supple, nontender Respiratory: Clear to auscultation, no signs of respiratory distress Cardiovascular: Normal S1, S2. No murmurs. Normal distal pulses in tibial and radial bilaterally. Abdomen: There is a PEG tube in upper abdomen, entry site seems normal and free of infection and inflammation. There is focal tenderness cephalad to the tube site at the lower order of the rib cage. Tenderness is focal and sharply defined. Abdomen is soft, normal bowel sounds present. Musculoskeletal: Normal, Strength/ROM Intact Neurological: A&Ox3, awake and alert, mentation is normal, speech is fluent and appropriate Psychiatric: affect is normal, does not appear anxious or depressed Triage Information Reviewed: Yes Vital Signs On Initial Exam: Initial Vitals Temp Pulse Resp BP Pulse Ox 98.3 F 90 18 129/79 98 03/23/19 20:32 03/23/19 20:32 03/23/19 20:32 03/23/19 20:32 03/23/19 20:32 Vital Signs Reviewed: Yes Procedures - Sedation Patient Received Moderate/Deep Sedation with Procedure: No Diagnostics - Vital Signs Vital Signs Temp Pulse Resp BP Pulse Ox 03/23/19 20:32 98.3 F 90 18 129/79 98 - Laboratory Result Diagrams: 03/23/19 21:27 03/23/19 21:27 Lab Statement: Any lab studies that have been ordered have been reviewed, and results considered in the medical decision making process. - CT ABD/PEL CT CT Interpretation Completed By: Radiologist Summary of CT Findings: IMPRESSION: 1. G-tube appears unremarkable. No visualized abscess or hematoma in the. anterior abdominal wall or elsewhere. 2. Moderate amount of stool without obstruction. 3. The appendix is not convincingly localized. No inflammatory change seen. around the cecum. This study has not completely excluded appendicitis. 4. Small amount of free fluid dependently in the pelvis, nonspecific, but. usually physiologic. No localized abscess. THIS REPORT WAS REVIEWED BY ED PHYSICIAN. GIGU Course/Dx - Course Course Of Treatment: Patient is a 39 y/o F presenting to [facility] with complaints of pain above her PEG tube. She states that she has been experiencing decreased appetite for the past few years as a result of a reaction to antibiotics she had previously taken. As a result, patient has required her feeding tube. She states that she had a tube change approximately three weeks ago. Patient states that she had an area of bruising around the site after the procedure. Patient reports bleeding from the site and began to have worse and sharp pain at the PEG tube site 1-2 days ago. Movement exacerbates her pain. On triage, pain is rated 8/10. There is a PEG tube in upper abdomen, entry site seems normal and free of infection and inflammation. There is focal tenderness cephalad to the tube site at the lower order of the rib cage. Tenderness is focal and sharply defined. Bloodwork was within normal limits. UA showed 2+ blood, trace WBC and RBC, as well as squamous eptih cells. Lidoderm 5% Patch was applied. CT ABD/ PEL IMPRESSION: 1. G-tube appears unremarkable. No visualized abscess or hematoma in the. anterior abdominal wall or elsewhere. 2. Moderate amount of stool without obstruction. 3. The appendix is not convincingly localized. No inflammatory change seen. around the cecum. This study has not completely excluded appendicitis. 4. Small amount of free fluid dependently in the pelvis , nonspecific, but. usually physiologic. No localized abscess. Results discussed with patient, she is discharged to home and will follow up with PCP within three days. - Diagnoses Provider Diagnoses: Chest wall pain Discharge ED - Sign-Out/Discharge Documenting (check all that apply): Patient Departure - discharge - Discharge Plan Condition: Good Disposition: HOME Patient Education Materials: Acute Abdominal Pain (ED) Referrals: Niharika Cortés MD [Primary Care Provider] - 3 Days (if needed) Additional Instructions: Your blood work and CT scan were unremarkable. The radiologist did not see any abnormalities in the area of your pain. I suspect that somehow the rib and associated soft tissue has become inflamed, perhaps due to some type of strain in the muscles around the rib. Although it hurts, it is not anything serious. - Billing Disposition and Condition Condition: GOOD Disposition: Home - Attestation Statements Document Initiated by Yanique: Yes Documenting Scribe: TYE NULL Provider For Whom Yanique is Documenting (Include Credential): ERIN NICOLE MD Scribe Attestation: I, TYE NULL, scribed for ERIN NICOLE MD on 03/24/19 at 1910. Scribe Documentation Reviewed: Yes Provider Attestation: The documentation as recorded by the TYE good accurately reflects the service I personally performed and the decisions made by me, ERIN NICOLE MD Status of Scribe Document: Viewed
[2019-03-23 21:46] LABS: ABS Basophils 0.1 10^3/ul (0-0.2); ABS Eosinophils 0.1 10^3/ul (0-0.6); ABS Lymphocytes 1.2 10^3/ul (1.0-4.8); ABS Monocytes 0.4 10^3/ul (0-0.8); ABS Neutrophils 3.2 10^3/ul (1.5-7.7); Eosinophil % 2.5 %; Hematocrit 40 % (35-47); Hemoglobin 13.8 g/dL (12.0-16.0); Mean Corpuscular HGB Conc 35 g/dL (31-36); Mean Corpuscular Hemoglobin 30 pg (27-31); Mean Corpuscular Volume 87 fL (80-97); Platelet Count 239 10^3/uL (150-450); Red Blood Count 4.58 10^6 /uL (3.70-4.87); Red Cell Distribution Width 14 % (10-15)
[2019-03-23 22:04] LABS: ALT 13 U/L (7-52); AST 18 U/L (13-39); Albumin 4.1 g/dL (3.2-5.2); Albumin/Globulin Ratio 1.4 (1-3); Alkaline Phosphatase 83 U/L (34-104); Anion Gap 7 mmol/L (2-11); BUN/Creatinine Ratio 16.1 (8-20); Blood Urea Nitrogen 10 mg/dL (6-24); C Reactive Protein < 1.00 mg/L (<8.01); CO2 Carbon Dioxide 30 mmol/L (22-32); Calcium 9.4 mg/dL (8.6-10.3); Chloride 102 mmol/L (101-111); EGFR African American 123.8 (>60); EGFR Non-African American 102.3 (>60); Glucose 86 mg/dL (70-100); Potassium 3.5 mmol/L (3.5-5.0); Sodium 139 mmol/L (135-145); Total Protein 7.1 g/dL (6.4-8.9)
[2019-03-23 22:10] LABS: HCG Pregnancy 2.12 mIU/mL
[2019-03-23] MEDS ORDERED: Iohexol 300* (CONTRAST) 10 ML SDV IV ONE (22:11)
[2019-03-23 23:04] LABS: Urine Appearance Clear; Urine Bilirubin Negative (Negative); Urine Blood 2+ (Negative); Urine Color Straw; Urine Glucose Negative (Negative); Urine Ketones Negative (Negative); Urine Nitrite Negative (Negative); Urine Protein Negative (Negative); Urine Specific Gravity 1.004 (1.010-1.030); Urine Urobilinogen Negative (Negative)
[2019-03-23 23:06] LABS: Urine Bacteria Absent (Absent); Urine Red Blood Cell Trace(0-2/hpf) (Absent); Urine Squamous Epithelial Cell Present (Absent); Urine White Blood Cell Trace(0-5/hpf) (Absent)
[2019-03-24] MEDS ORDERED: Lidocaine PATCH 5%* 1 PATCH TRANSDERM ONE (00:15)
[2019-03-24 00:26] VITALS: BP 108/87
[2019-03-24] MEDS ORDERED: Lidocaine Patch REMOVE* 1 NOTE MISC SCH (21:00)
--- NOTE | 2019-03-26 10:01 | ED ---
Imaging and Labs Follow Up Follow Up Type: Labs/Cultures Labs/Culture Result: Urine culture growing small amount of enterococcus faecalis 10-25k. Patient Communication/Plan: Pt. currently being treated with keflex for recent UTI. No change in treatment needed at this time. Provider Diagnoses: Chest wall pain
== END 2019-03-24 00:28 | disposition home or self-care (01) ==
LOC: ED 20:30
DX: R07.89 Other chest pain (principal); Z93.1 Gastrostomy status; K31.84 Gastroparesis; F32.9 Major depressive disorder, single episode, unspecified; Z88.1 Allergy status to other antibiotic agents
CPT/HCPCS: 36415; 74177; 80053; 81003; 81015; 83690; 84702; 85025; 86140; 87077; 87086; 87186; 99283; A9270-GY; Q9967

== ENCOUNTER 2022-09-17 14:25 | Observation (INO) ==
[2022-09-17] MEDS ORDERED: Lactated Ringers 1000 ml BAG 1,000 ML IV ONE (14:39)
[2022-09-17] MEDS ORDERED: Ondansetron ODT 4 mg TAB 4 MG TAB SL ONE (14:41)
[2022-09-17 15:57] LABS: ABS Lymphocytes 0.9 10^3/uL (1.0-4.8); ABS Monocytes 0.7 10^3/uL (0.0-0.9); ABS Neutrophils 4.9 10^3/uL (1.5-7.6); Eosinophil % 0.3 %; Hematocrit 42.6 % (35-45); Hemoglobin 14.6 g/dL (11.5-14.3); Lymphocyte % 13.5 %; Mean Corpuscular Hemoglobin 30.1 pg (27-33); Mean Corpuscular Hgb Conc 34.3 g/dL (31-36); Mean Corpuscular Volume 87.9 fL (80-97); Mean Platelet Volume 9.2 fL (7.5-11.2); Platelet Count 270 10^3/uL (150-450); Red Blood Count 4.85 10^6/uL (3.63-4.92); Red Cell Distribution Width 12.1 % (12-17); White Blood Count 6.6 10^3/uL (3.8-11.8)
[2022-09-17 16:35] LABS: Albumin 4.4 g/dL (3.2-5.2); Albumin/Globulin Ratio 1.5 (1-3); Calcium 9.5 mg/dL (8.6-10.3); Creatinine, Serum 0.51 mg/dL (0.51-0.95); Magnesium 1.8 mg/dL (1.9-2.7); Potassium 3.6 mmol/L (3.5-5.0); Total Bilirubin 0.6 mg/dL (0.2-1.0); Total Protein 7.4 g/dL (6.4-8.9); eGFR CKD-EPI 112.2 (>60)
[2022-09-17 17:17] LABS: Free T4 3.91 ng/dL (0.61-1.12)
[2022-09-17] MEDS ORDERED: Ondansetron 4 mg VIAL 2 MG/ML 2 ml VIAL IV PRN (18:41)
[2022-09-17] MEDS ORDERED: Metoprolol Tartrate 5 mg VIAL 5 ml VIAL (1 mg/ml) IV ONE (18:42)
[2022-09-17] MEDS ORDERED: Lactated Ringers 1000 ml BAG 1,000 ML IV SCH (19:00)
[2022-09-17] MEDS ORDERED: Magnesium Sulfate IV 1GM/100ML 1 GM/100 ML BAG IV ONE (19:09)
[2022-09-17] MEDS ORDERED: KCL 20 MEQ/100 ML IVPREMIX 20 MEQ/100 ML BAG IV ONE (19:09)
[2022-09-17] MEDS ORDERED: Dextrose 50% Syringe 50 ml 25 GM/50 ML SYRINGE IV PUSH PRN (19:53)
[2022-09-17 20:23] LABS: Phosphorus 2.6 mg/dL (2.5-5.0)
[2022-09-18 03:21] LABS: Urine Appearance Clear; Urine Bilirubin Negative (Negative); Urine Blood 2+ (Negative); Urine Color Straw; Urine Glucose Negative (Negative); Urine Ketones 1+ (Negative); Urine Nitrite Negative (Negative); Urine Protein Negative (Negative); Urine Specific Gravity 1.004 (1.002-1.030); Urine Urobilinogen Negative (Negative)
[2022-09-18 03:29] LABS: Urine Bacteria Absent (Absent); Urine Red Blood Cell Trace(0-2/hpf) (Absent); Urine White Blood Cell Trace(0-5/hpf) (Absent)
[2022-09-18 05:36] LABS: ABS Eosinophils 0.1 10^3/uL (0.0-0.5); ABS Lymphocytes 0.8 10^3/uL (1.0-4.8); ABS Monocytes 0.7 10^3/uL (0.0-0.9); ABS Neutrophils 3.3 10^3/uL (1.5-7.6); Eosinophil % 1.1 %; Hematocrit 35.6 % (35-45); Hemoglobin 12.7 g/dL (11.5-14.3); Lymphocyte % 16.7 %; Mean Corpuscular Hemoglobin 30.7 pg (27-33); Mean Corpuscular Hgb Conc 35.5 g/dL (31-36); Mean Corpuscular Volume 86.5 fL (80-97); Mean Platelet Volume 9.4 fL (7.5-11.2); Nucleated Red Blood Cells % 0.1 /100 WBC (0.0-0.4); Platelet Count 225 10^3/uL (150-450); Red Blood Count 4.12 10^6/uL (3.63-4.92); Red Cell Distribution Width 12.2 % (12-17)
[2022-09-18 05:54] LABS: Calcium 8.6 mg/dL (8.6-10.3); Creatinine, Serum 0.43 mg/dL (0.51-0.95); Magnesium 1.9 mg/dL (1.9-2.7); Potassium 3.4 mmol/L (3.5-5.0)
[2022-09-18] MEDS ORDERED: KCL 20 MEQ/100 ML IVPREMIX 20 MEQ/100 ML BAG IV ONE (09:43)
[2022-09-18 15:56] VITALS: BP 127/80
== END 2022-09-18 16:40 | disposition home or self-care (01) ==
LOC: EDHOLD 14:25 → ED 14:25 → SUATTDRO 18:33 → EDHOLD 20:45 → MED 21:31
PROVIDERS: ADMIT Student in an Organized Health Care Education/Training Program; ATTEND Internal Medicine